=== PATIENT | male | born 1950 | race Caucasian/White ===

== ENCOUNTER → 2018-07-10 15:47 | Outpatient (CLI) | payer MEDICARE, OTHER, SELFPAY ==
--- NOTE | 2018-07-10 16:01 | XR_ITS ---
XR humerus RT CLINICAL INDICATION: Pain following injury ITS.REASON: RT SHOULDER PAIN,FALL FROM 10 FOOT HEIGHT ORDERING PHYSICIAN: ORVILLE Juarez PATIENT AGE: 68 years Comparison: None FINDINGS: No fracture or dislocation IMPRESSION: Negative right humerus
--- NOTE | 2018-07-10 16:01 | XR_ITS ---
XR wrist RT min 3V HISTORY ITS.REASON: RT WRIST PAIN,FALL FROM 10 FOOT HEIGHT ORDERING PHYSICIAN: ORVILLE Juarez PATIENT AGE: 68 years Comparison: None FINDINGS: No fracture or dislocation. No lytic or blastic change. There is normal mineralization.. The joint spaces are well-preserved. No significant degenerative/arthritic changes. Lucency is present at the tip of the ulnar styloid is nonspecific.. Suspected old fracture of the fifth metacarpal. There are small calcific densities at the first metacarpocarpal junction laterally likely chronic IMPRESSION: 1. No acute fracture. 2. Suspect old fifth metacarpal fracture. Nonspecific lucency at the tip of the ulnar styloid which may be due to erosion which could be seen with rheumatoid arthritis.
--- NOTE | 2018-07-10 16:01 | XR_ITS ---
XR chest 2V HISTORY: Posttraumatic pain following injury ITS.REASON: CHEST WALL PAIN,FALL FROM 10 FOOT HEIGHT ORDERING PHYSICIAN: ORVILLE Juarez PATIENT AGE: 68 years COMPARISON: None FINDINGS: The cardiomediastinal silhouette and pulmonary vascularity are within normal limits. The lungs are clear without infiltrates, suspicious nodules, or pleural effusions. No acute bony abnormalities. Right side of the lower chest was clipped off on this study however, that area was visualized in the right humerus films and was unremarkable. Mild degenerative changes in the thoracic spine IMPRESSION: No acute finding
--- NOTE | 2018-07-10 16:01 | XR_ITS ---
XR shoulder RT min 2V HISTORY: ITS.REASON: RT SHOULDER PAIN,FALL FROM 10 FOOT HEIGHT ORDERING PHYSICIAN: ORVILLE Juarez PATIENT AGE: 68 years Comparison: None FINDINGS: No fracture or dislocation. No lytic or blastic change. There is normal mineralization. Mild osteoarthritic changes are present at the acromioclavicular joint. IMPRESSION: 1. No acute fracture. 2. Mild acromioclavicular arthropathy
--- NOTE | 2018-07-10 16:01 | XR_ITS ---
EXAM: XR lumbar spine min 4V HISTORY: ITS.REASON: LOW BACK PAIN,FALL FROM 10 FOOT HEIGHT ORDERING PHYSICIAN: ORVILLE Juarez PATIENT AGE: 68 years COMPARISON: None FINDINGS: Mild lumbar curvature convex right. There is straightening of the lumbar lordosis which may be seen with patient positioning or muscle spasm. There is mild multilevel lumbar spondylosis with small anterior osteophytes from L2 to S1 along with mild degenerative disc disease at L5-S1. A fracture or dislocation. No lytic or blastic change. Incidental note made of some small left renal calculi along the lower pole of the left kidney measuring up to 4 mm IMPRESSION: Lumbar spondylosis, no acute finding Left nephrolithiasis
--- NOTE | 2018-07-10 16:01 | XR_ITS ---
XR hand LT min 3V HISTORY: ITS.REASON: LEFT HAND PAIN,FALL FROM 10 FOOT HEIGHT ORDERING PHYSICIAN: ORVILLE Juarez PATIENT AGE: 68 years COMPARISON: None FINDINGS: The patient was unable to remove his ring from the fourth finger with resultant artifact overlying the mid aspect of the proximal phalanx which could obscure an underlying lesion or fracture. No acute fracture or dislocation is evident. Minor osteoarthritic changes are present at the DIP joints of the second through fifth finger and the interphalangeal joint of the first finger. IMPRESSION: As above, no acute finding
== END ==
PROVIDERS: PCP Physician Assistant; Visit Provider Physician Assistant
DX: M25.531 Pain in right wrist (principal); M79.642 Pain in left hand; M25.511 Pain in right shoulder; M54.5 Low back pain; R07.89 Other chest pain
CPT/HCPCS: 71046; 72110; 73030; 73060; 73110; 73130

== ENCOUNTER → 2018-09-17 16:54 | Outpatient (CLI) | payer MEDICARE, OTHER, SELFPAY ==
[2018-09-17 19:27] LABS: Blood Urea Nitrogen 24 mg/dL (7-18); Creatinine,Serum 0.97 mg/dL (0.70-1.30); Estimated Glomerular Filt Rate 77 ml/min (>60); GFR (African American) 94 ML/MIN (>60)
== END ==
PROVIDERS: Visit Provider Family Medicine
DX: F07.81 Postconcussional syndrome (principal)
CPT/HCPCS: 36415; 82565; 84520

== ENCOUNTER → 2018-09-18 09:05 | Outpatient (CLI) | payer MEDICARE, OTHER, SELFPAY ==
--- NOTE | 2018-09-18 09:07 | MR_ITS ---
MR head/brain wo/w con HISTORY: Headache, pain, post concussion syndrome with dizziness ITS.REASON: POST CONCUSSION SYNDROME ORDERING PHYSICIAN: Marcella Palma MD PATIENT AGE: 68 years Comparison: None TECHNIQUE: Standard multiplanar multiecho sequences are performed without and with gadolinium enhancement. FINDINGS: No midline shift, mass effect, intracranial hemorrhage, or hydrocephalus is evident. No evidence of acute infarction or restricted diffusion. There are a few scattered periventricular and subcortical T2 white matter hyperintensities which are nonspecific and may be due to mild ischemic gliotic change from microvascular disease. The cerebellopontine angles, cerebellum, and brainstem are unremarkable. No enhancing lesions are apparent. There is a partial empty sella as a normal variant. The optic chiasm, corpus callosum, craniocervical junction, and upper cervical cord are unremarkable. No mastoid effusion or sinus air-fluid level. No acute calvarial abnormality IMPRESSION: 1. No acute intracranial findings. 2. Minimal periventricular ischemic gliotic change
== END ==
PROVIDERS: PCP Family Medicine; Visit Provider Family Medicine
DX: F07.81 Postconcussional syndrome (principal)
CPT/HCPCS: 70553; A9576

== ENCOUNTER → 2020-06-08 12:11 | Outpatient (CLI) | payer MEDICARE, OTHER, SELFPAY ==
[2020-06-08 15:09] LABS: Coronavirus 19 IgG Antibody Negative (Negative); Coronavirus 19 IgM Antibody Negative (Negative)
== END ==
PROVIDERS: Visit Provider Internal Medicine Gastroenterology
DX: Z01.818 Encounter for other preprocedural examination (principal); Z12.11 Encounter for screening for malignant neoplasm of colon
CPT/HCPCS: 36415; 86328

== ENCOUNTER 2020-06-10 08:02 | Day surgery (SDC) | payer MEDICARE, OTHER, SELFPAY ==
[2020-06-06 09:51] VITALS: BMI 25.8
[2020-06-10] VITALS (7 sets, daily range): BP systolic 85–160; BP diastolic 53–76; PULSE 46–72; RESP 16–18; TEMP 36.4; O2SAT 95–100
--- NOTE | 2020-06-10 09:41 | HMH.PROC ---
[facility] Procedure Note Procedure Note:: Colonoscopy Procedure Report: Colonoscopy with cold snare polypectomy Endoscopist: Eze Gonzalez II, MD Referring physician: Raul Mejia MD Date of Procedure: June 10, 2020 Equipment: Olympus 180 variable stiffness pediatric colonoscope Sedation: MAC sedation Indication: Mr. Loyd is a 70-year-old gentleman who is here for follow-up screening/surveillance colonoscopy. The patient did have a colonoscopy 10 years ago (in [place]) and had 2 polyps removed. He reports no abdominal pain, weight loss, change in his bowel habits or rectal bleeding. He reports no family history of colon cancer. Procedure: Prior to the procedure, a history and physical exam was performed, and patient's medications and allergies were reviewed. The risks, benefits and alternatives of the sedation and procedure were discussed with the patient. All questions were answered and informed consent was obtained. The patient was brought to the procedure room. Patient identification and proposed procedure were verified by the physician and the nurse. The patient was placed in a left lateral decubitus position and the scope was passed under direct vision. Throughout the procedure, the patient's blood pressure, pulse, and oxygen saturations were monitored continuously. The colonoscopy was accomplished without difficulty. The patient tolerated the procedure well. Findings: On digital rectal examination there was normal rectal tone. There were larger external hemorrhoidal tags. The prostate was 2+, mildly firm on the margins but symmetric without nodules. The colonoscope was introduced through the anal canal to the rectum and advanced to the cecum. The ileocecal valve and appendiceal orifice were identified. The scope was advanced a short distance into the ileum which appeared grossly normal. The scope was then withdrawn into the colon. There was a single 4 mm ascending colon polyp that was removed via cold snare polypectomy (but not retrieved). NBI showed this to be diminutive tubular adenoma. The remaining cecum, ascending, transverse, descending, sigmoid and rectum were grossly normal. There were no mucosal abnormalities identified. Upon retroflexion within the rectum there were grade 2 internal hemorrhoids.The preparation was excellent throughout with [place] Preparation Score of 9. The cecal time was 10 minutes. Impression: 1. Diminutive ascending polyp (tubular adenoma) 2. Grade 2 internal hemorrhoids with external hemorrhoidal tags Plan: I will recommend repeat surveillance colonoscopy in 7 years based on diminutive size/small tubular adenoma. I would encourage bulk fiber supplementation on a maintenance basis.
== END 2020-06-10 10:45 | disposition home or self-care (01) ==
LOC: OUTP 08:04
PROVIDERS: PCP Family Medicine; Visit Provider Internal Medicine Gastroenterology
PROC: 0DJD8ZZ Inspection of Lower Intestinal Tract, Via Natural or Artificial Opening Endoscopic (ICD-10-PCS; CPT 45378; principal; 2020-06-10 09:00)
DX: Z12.11 Encounter for screening for malignant neoplasm of colon (principal); Z86.010 Personal history of colon polyps; K63.5 Polyp of colon; K64.0 First degree hemorrhoids; I10 Essential (primary) hypertension; E11.9 Type 2 diabetes mellitus without complications; Z80.9 Family history of malignant neoplasm, unspecified; Z88.1 Allergy status to other antibiotic agents; Z79.899 Other long term (current) drug therapy
CPT/HCPCS: 45385

== ENCOUNTER → 2020-08-18 12:46 | Outpatient (CLI) | payer MEDICARE, OTHER, SELFPAY ==
--- NOTE | 2020-08-18 12:54 | XR_ITS ---
PROCEDURE: XR CHEST PORTABLE CLINICAL HISTORY: COVID TESTING Cough, fatigue COMPARISON: CR CXR2V XR chest 2V from 07/10/2018 FINDINGS: The cardiomediastinal silhouette and pulmonary vascularity are within normal limits. Calcified nodes are present in the right perihilar region. Calcified granuloma is present in the right lower lung zone. The lungs are otherwise clear. No acute bony abnormalities. IMPRESSION: No acute findings. Dictated by: Frankie Sanchez MD 08/18/2020 16:25 Frankie Sanchez MD in [place] 08/18/2020 16:25
[2020-08-18 14:30] LABS: Basophils # 0.1 K/mm3 (0-0.2); Basophils % 0.7 % (0.1-2.0); Eosinophils # 0.1 K/mm3 (0.0-0.4); Eosinophils % 1.7 % (0.1-12.0); Hematocrit 53.1 % (42.0-52.0); Hemoglobin 17.4 g/dL (14.1-18.0); Lymphocytes # 1.5 K/mm3 (0.7-4.5); Lymphocytes % 22.1 % (10-50); Mean Corpuscular HGB Conc 32.9 g/dL (31.8-35.4); Mean Corpuscular Hemoglobin 29.7 pg (27.0-31.2); Mean Corpuscular Volume 90.3 fl (80-94); Mean Platelet Volume 8.5 fl (7.4-10.4); Monocytes # 0.3 K/mm3 (0.1-1.0); Monocytes % 5.2 % (1.7-9.3); Neutrophils # 4.7 K/mm3 (1.8-7.8); Neutrophils % 70.4 % (37.0-80.0); Platelet Count 232 K/mm3 (142-424); Red Blood Count 5.88 M/mm3 (4.60-6.20); Red Cell Distribution Width 13.7 % (11.5-17.5); White Blood Count 6.6 K/mm3 (4.8-10.8)
[2020-08-19 07:49] LABS: Covid-19 Nasal PCR Sendout P&C NEGATIVE
== END ==
PROVIDERS: PCP Physician Assistant; Visit Provider Physician Assistant
DX: Z11.52 Encounter for screening for COVID-19 (principal); R05 Cough; R53.83 Other fatigue
CPT/HCPCS: 36415; 71045; 85025; U0004

== ENCOUNTER → 2021-05-30 12:09 | Outpatient (POV) | payer MEDICARE, OTHER, SELFPAY | PROVIDERS: Visit Provider Dermatology | DX: Z00.00 Encounter for general adult medical examination without abnormal findings (principal) ==

== ENCOUNTER → 2021-06-23 13:04 | Outpatient (CLI) | payer MEDICARE, OTHER, SELFPAY | LOC: RT 13:08 → SL 13:32 | PROVIDERS: PCP Family Medicine; Visit Provider Family Medicine | DX: G47.33 Obstructive sleep apnea (adult) (pediatric) (principal); R06.83 Snoring | CPT/HCPCS: G0399 ==

== ENCOUNTER → 2021-08-03 10:53 | Outpatient (POV) | payer MEDICARE, OTHER, SELFPAY ==
[2021-08-03 11:08] VITALS: BP 167/90; PULSE 87; RESP 18; O2SAT 97; BMI 26.6
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
== END ==
PROVIDERS: Visit Provider Clinical Nurse Specialist Family Health
DX: M79.18 Myalgia, other site (principal); M54.2 Cervicalgia
CPT/HCPCS: 99202; G0463

== ENCOUNTER 2021-08-07 14:57 | Day surgery (SDC) | payer MEDICARE, OTHER, SELFPAY ==
[2021-08-07 14:59] VITALS: BP 131/71; PULSE 65; RESP 20; TEMP 36.6; O2SAT 97; BMI 26.6
[2021-08-07 15:06] VITALS: BP 156/84; PULSE 66; RESP 18; O2SAT 99
[2021-08-07 15:07] VITALS: PULSE 68; RESP 18; O2SAT 98
[2021-08-07 15:12] VITALS: BP 156/77; PULSE 63; RESP 20; O2SAT 97
--- NOTE | 2021-08-07 15:12 | P.PCN_ITS ---
- Procedure Date: 08/07/21 Time: 15:13 Anesthesiologist:: Kristen Geronimo APRN Complications:: None Pre-procedure Diagnosis:: Myofascial pain of the neck Post-procedure Diagnosis:: Same Indications for Procedure:: Patient is a pleasant 71-year-old male who comes in here today for a trigger point injection on his right cervical paraspinous. Patient is currently being treated for myofascial pain of the right neck. Patient says that this has been going on for a while and has gotten relief from a massage but the relief only lasted for a couple of days. He says the pain is worse when he turns his head and he hears popping sounds. Patient has also tried TENS unit which helped him before. He rates his pain as 5/10. Drug screens have been appropriate. Physical exam General: Alert and oriented x3, no acute distress, pleasant and cooperative Lungs: Respirations even and unlabored, symmetrical chest expansion Eyes: PERRL Musculoskeletal: Flexion and extension of [cervical] [spine] somewhat guarded secondary to pain, [antalgic gait noted] Neurological: Speech clear, no gross sensory deficit Procedure Details:: Informed consent was obtained and the risk and benefits of the procedure was explained to the patient. Patient was taken to the procedure room. [Neck and upper trapezius area] were prepped using ChloraPrep. Trigger points were palpated and marked. Each of these trigger points were injected with bupivacaine 0.25% 3 mL and Depo-Medrol 10 mg. A total of[80] milligrams Depo- Medrol was used for [right cervical paraspinous muscles]. Bandages were placed over the injection sites. Patient tolerated procedure well with no complications. Plan and Disposition:: We will follow up with the patient in 3 weeks. Patient has been instructed to contact the clinic with any concerns before the next appointment. Dr. Prieto has reviewed this note and agrees with this plan of care. This note was dictated u sing voice recognition software and make contain errors or omissions.
== END 2021-08-07 15:13 | disposition home or self-care (01) ==
LOC: SC.PAINP 14:58
PROVIDERS: PCP Family Medicine; Visit Provider Clinical Nurse Specialist Family Health
DX: M79.12 Myalgia of auxiliary muscles, head and neck (principal); I10 Essential (primary) hypertension; Z88.8 Allergy status to other drugs, medicaments and biological substances
CPT/HCPCS: 20552; J1040

== ENCOUNTER 2021-08-20 10:57 | Emergency (ER) | payer MEDICARE, OTHER, SELFPAY ==
[2021-08-20 10:59] VITALS: BP 138/84; PULSE 78; RESP 16; TEMP 36.9; O2SAT 98; BMI 27.3
[2021-08-20 14:33] VITALS: BP 0/0; PULSE 0; RESP 0; TEMP -17.7; TEMP 0
== END 2021-08-20 14:33 | disposition left against medical advice (07) ==
LOC: UTC 11:09
PROVIDERS: Emergency Provider Nurse Practitioner Family; PCP Physician Assistant
DX: Z53.21 Procedure and treatment not carried out due to patient leaving prior to being seen by health care provider (principal)

== ENCOUNTER → 2021-09-05 12:42 | Outpatient (CLI) | payer MEDICARE, OTHER, SELFPAY ==
[2021-09-06 08:17] LABS: PSA, Free 0.89 ng/mL; Prostate Specific Ag 11.8 ng/mL (0.0-4.0)
== END ==
PROVIDERS: PCP Family Medicine; Visit Provider Urology
DX: R97.20 Elevated prostate specific antigen [PSA] (principal)
CPT/HCPCS: 36415; 84153; 84154

== ENCOUNTER → 2021-09-12 15:22 | Outpatient (CLI) | payer MEDICARE, OTHER, SELFPAY ==
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
== END ==
PROVIDERS: PCP Family Medicine; Visit Provider Family Medicine
DX: M54.2 Cervicalgia (principal)
CPT/HCPCS: 72050

== ENCOUNTER → 2021-09-29 13:48 | Outpatient (CLI) | payer MEDICARE, OTHER, SELFPAY | PROVIDERS: Visit Provider Urology | DX: R97.20 Elevated prostate specific antigen [PSA] (principal); Z01.812 Encounter for preprocedural laboratory examination; Z11.52 Encounter for screening for COVID-19 | CPT/HCPCS: C9803; U0003; U0005 ==

== ENCOUNTER 2021-10-02 08:55 | Day surgery (SDC) | payer MEDICARE, OTHER, SELFPAY ==
[2021-09-28 13:12] VITALS: BMI 26.6
[2021-10-02 09:07] VITALS: BP 147/70; PULSE 59; RESP 18; TEMP 36.8; O2SAT 98
--- NOTE | 2021-10-02 10:34 | P.PN_ITS ---
[facility] Anesthesia Checklist - Structural Data Admitted From: Home Planned Operative Procedure/s: prostate,bx Consent for Planned Operative Procedure(s) Verified: Yes - Additional verifications Anesthesia Reactions: No Hx Blood Transfusions: No Blood Transfusion Reaction: No - Airway Assessment C-Spine Mobility Assessed: Yes TMJ Mobility Assessed: Yes Dentition: Good Dentition - Neurological Assessment Level of Consciousness: Awake, Alert, Appropriate - Anesthesia Plan Anesthesia Risk discussed: Yes Anesthesia Plan: Verified ASA Class: II Anesthesia Type: MAC [facility] History I have reviewed the patient's past medical history: Yes Medical History: Reports:: Hypertension Denies:: Cancer, Diabetes Mellitus Type 1, Diabetes Mellitus Type 2, Internal Pacemaker, MRSA, Seizures *Have you ever received a pneumonia vaccine?: Yes *Have you received a flu vaccine this season?: Yes Other Medical History: Reports: Arthritis. Denies: Blood Transfusion Reaction Anesthesia experience/problems:: none Other Surgeries: Yes: No Previous Surgery, Colonoscopy. No: Pacemaker Amputation: No Fractures: No - *Social History Last grade of school completed: 11th or 12th Smoking Status: Current every day smoker Tobacco Type: smokeless tobacco # Packs/Day (cigarettes): 1 Alcohol Intake: never Alcohol Intake Frequency:: a few times a month Substance Use Type: denies use *Occupational Status:: retired Housing: house Household Members: spouse *Travel in the last 8 weeks: None Family Hx:: Cancer, Diabetes
[2021-10-02 12:15] VITALS: BP 89/53; PULSE 61; RESP 16; TEMP 36.4; O2SAT 92
[2021-10-02 12:30] VITALS: BP 105/63; PULSE 47; RESP 16; TEMP 36.4; O2SAT 97
[2021-10-02 12:45] VITALS: BP 98/61; PULSE 51; RESP 18; TEMP 36.4; O2SAT 98
--- NOTE | 2021-10-02 13:05 | HMH.OPNOTE ---
Date of procedure: 10/02/21 Pre-op Diagnosis:: Elevated PSA, 11.8 Post-op Diagnosis:: Same Procedure performed:: Transrectal ultrasound with prostate biopsy x12 Surgeon:: Lavon Candelaria MD TILE [employer] MARBLE INSTALLER:: Other (hammad s) Anesthesia: MAC Estimated blood loss (mL): 0 Clinical Note:: 71-year-old white male with rising PSA and suspicious prostate examination. His recent PSA was 11.8 and he presents for prostate biopsy. He did perform preoperative antibiotics and enema. Operative findings:: Prostate was measured at 38 cm?. There were some hypoechoic lesions in the central prostate zone bilaterally. Some scattered calcifications were also noted. Operative note:: Patient taken to the operating room after informed consent was obtained. On the stretcher he was placed in the left lateral decubitus position and monitored anesthesia care administered. Once adequate analgesia was performed the transrectal ultrasound probe was placed into the rectum and the prostate was easily visualized. Prostate was measured at 38.2 cm?. There was hypoechoic areas noted in the central zone of the prostate bilaterally. No hyperechoic lesions were noted. There were some scattered calcifications in the central zone as well. Local anesthetic was then placed into each region of the neurovascular bundles. 12 biopsies then taken in a systematic fashion including through the hypoechoic areas centrally. No bleeding was noted. The probe was removed. The patient tolerated the procedure well no complications. Condition: stable Disposition: same day Specimens:: Prostate biopsy x12 Complications:: None
[2021-10-02 13:17] VITALS: BP 121/74; PULSE 53; RESP 18; TEMP 36.4; O2SAT 94
== END 2021-10-02 13:17 | disposition home or self-care (01) ==
LOC: OR 08:57
PROVIDERS: PCP Family Medicine; Visit Provider Urology
DX: N42.0 Calculus of prostate (principal); N42.89 Other specified disorders of prostate; R97.20 Elevated prostate specific antigen [PSA]; I10 Essential (primary) hypertension; M19.90 Unspecified osteoarthritis, unspecified site; Z88.1 Allergy status to other antibiotic agents; Z79.899 Other long term (current) drug therapy
CPT/HCPCS: 55700; 88305; J2405

== ENCOUNTER → 2021-10-23 09:30 | Outpatient (CLI) | payer MEDICARE, OTHER, SELFPAY ==
--- NOTE | 2021-10-23 09:31 | CT_ITS ---
FINAL REPORT TECHNIQUE: Axial images through the abdomen and pelvis were performed without contrast. This study was performed with techniques to keep radiation doses as low as reasonably achievable, (ALARA). Individualized dose reduction techniques using automated exposure control or adjustment of mA and/or kV according to the patient's size were employed. CLINICAL HISTORY: prostate cancer FINDINGS: Abdomen: There is scarring in the lung bases. There is a low-attenuation focus in the lateral left lobe of the liver measuring 1.4 cm. The gallbladder is present. The spleen, pancreas, and adrenals are unremarkable. There is a nonobstructing stone in the left renal collecting system. Pelvis: The urinary bladder is incompletely distended. The appendix is at the upper limits of normal in size but otherwise unremarkable. There is no pelvic mass or inflammation. The prostate is not enlarged. There are no sclerotic lesions in the osseous structures. IMPRESSION: 6 mm nonobstructing left renal stone. No significant mass or adenopathy. Benign-appearing cyst in the lateral left lobe of the liver. Reviewed, Interpreted and Dictated by Kodak Sanchez MD Transcribed by Eddie Isaac Authenticated by Kodak Sanchez MD on 10/23/2021 10:41:58 AM [facility]
== END ==
PROVIDERS: PCP Family Medicine; Visit Provider Urology
DX: C61 Malignant neoplasm of prostate (principal)
CPT/HCPCS: 74176

== ENCOUNTER → 2021-10-24 13:56 | Outpatient (CLI) | payer MEDICARE, OTHER, SELFPAY ==
[2021-10-24 14:47] LABS: Adenovirus,PCR Not Detected (NotDetected); Bordetella Pertussis Not Detected (NotDetected); Chlamydophila Pneumoniae, PCR Not Detected (NotDetected); Coronavirus 19, PCR Not Detected (NotDetected); Coronavirus 229E Not Detected (NotDetected); Coronavirus NL63 Not Detected (NotDetected); Coronavirus OC43 Not Detected (NotDetected); Coronovirus HKU1,PCR Not Detected (NotDetected); Human Metapneumovirus Not Detected (NotDetected); Influenza A, PCR Not Detected (NotDetected); Influenza AH1, 2009 Not Detected (NotDetected); Influenza AH1, PCR Not Detected (NotDetected); Influenza AH3,PCR Not Detected (NotDetected); Influenza B, PCR Not Detected (NotDetected); Mycoplasma Pneumoniae, PCR Not Detected (NotDetected); Parainfluenza 1, PCR Not Detected (NotDetected); Parainfluenza 2, PCR Not Detected (NotDetected); Parainfluenza 3, PCR Not Detected (NotDetected); Parainfluenza 4, PCR Not Detected (NotDetected); Respiratory Syncytial Virus Not Detected (NotDetected); Rhinovirus/Enterovirus Not Detected (NotDetected)
[2021-10-24 14:52] LABS: Basophils # 0.1 K/mm3 (0-0.2); Basophils % 0.8 % (0.1-2.0); Eosinophils # 0.2 K/mm3 (0.0-0.4); Eosinophils % 1.9 % (0.1-12.0); Hemoglobin 15.2 g/dL (14.1-18.0); Lymphocytes # 1.4 K/mm3 (0.7-4.5); Lymphocytes % 16.5 % (10-50); Mean Corpuscular HGB Conc 32.3 g/dL (31.8-35.4); Mean Corpuscular Hemoglobin 29.2 pg (27.0-31.2); Mean Corpuscular Volume 90.3 fl (80-94); Mean Platelet Volume 9.2 fl (7.4-10.4); Monocytes # 0.4 K/mm3 (0.1-1.0); Monocytes % 5.3 % (1.7-9.3); Neutrophils # 6.2 K/mm3 (1.8-7.8); Neutrophils % 75.5 % (37.0-80.0); Platelet Count 236 K/mm3 (142-424); Red Cell Distribution Width 14.3 % (11.5-17.5); White Blood Count 8.2 K/mm3 (4.8-10.8)
== END ==
PROVIDERS: PCP Family Medicine; Visit Provider Family Medicine
DX: Z20.822 Contact with and (suspected) exposure to COVID-19 (principal); R06.02 Shortness of breath; R05.9 Cough, unspecified
CPT/HCPCS: 36415; 85025; 87581; 87632; 87798; C9803; U0003; U0005

== ENCOUNTER → 2021-10-30 09:11 | Outpatient (CLI) | payer MEDICARE, OTHER, SELFPAY ==
--- NOTE | 2021-10-30 09:11 | NM_ITS ---
FINAL REPORT CLINICAL HISTORY: prostate cancer 9:20am 26.2 mci tc mdp COMPARISON: Cervical spine radiograph dated 09/12/2021 FINDINGS: WHOLE BODY BONE SCAN PROCEDURE: The patient was injected with 26.2 mCi of technetium 99m MDP. Three-hour delayed images were obtained. FINDINGS: There is increased tracer activity in the shoulders, wrists, and knees consistent with degenerative changes. There is a focus of increased tracer activity in the right lower cervical spine which is nonspecific and favored to be degenerative. There is mild increased tracer in the thoracic and lumbar spine consistent with degenerative change IMPRESSION: Increased tracer activity favored to be related to degenerative change. No evidence of bony metastatic disease. Reviewed, Interpreted and Dictated by Vinh Palacios III, MD Transcribed by Ashley Woo Authenticated by Vinh Palacios III, MD on 10/30/2021 01:41:48 PM [facility]
--- NOTE | 2021-10-30 09:33 | HMH.ITSHM ---
Current Home Medications as stated by this patient Daryl Loyd or patient portal representative. []LISINOPRIL
== END ==
PROVIDERS: PCP Family Medicine; Visit Provider Urology
DX: C61 Malignant neoplasm of prostate (principal)
CPT/HCPCS: 78306; A9503

== ENCOUNTER → 2021-12-22 11:30 | Outpatient (CLI) | payer MEDICARE, OTHER, SELFPAY | PROVIDERS: Visit Provider Urology | DX: C61 Malignant neoplasm of prostate (principal); Z01.812 Encounter for preprocedural laboratory examination; Z11.52 Encounter for screening for COVID-19 | CPT/HCPCS: C9803; U0003; U0005 ==

== ENCOUNTER 2021-12-25 08:25 | Day surgery (SDC) | payer MEDICARE, OTHER, SELFPAY ==
[2021-12-21 10:43] VITALS: BMI 25.1
[2021-12-25 08:44] VITALS: BP 115/61; PULSE 50; RESP 18; TEMP 36.4; O2SAT 99
--- NOTE | 2021-12-25 09:11 | HMH.ANESCL ---
[facility] Anesthesia Checklist - Structural Data Admitted From: Home Planned Operative Procedure/s: transurethral ultrasound Consent for Planned Operative Procedure(s) Verified: Yes - Additional verifications Anesthesia Reactions: No Hx Blood Transfusions: No Blood Transfusion Reaction: No - Airway Assessment C-Spine Mobility Assessed: Yes TMJ Mobility Assessed: Yes Dentition: Good Dentition - Neurological Assessment Level of Consciousness: Awake, Alert, Appropriate - Anesthesia Plan Anesthesia Risk discussed: Yes Anesthesia Plan: Verified ASA Class: II Anesthesia Type: MAC [facility] History I have reviewed the patient's past medical history: Yes Medical History: Reports:: Cancer (PROSTATE), Hypertension Denies:: Diabetes Mellitus Type 1, Diabetes Mellitus Type 2, Internal Pacemaker, MRSA, Seizures *Have you ever received a pneumonia vaccine?: Yes *Have you received a flu vaccine this season?: Yes Other Medical History: Reports: Arthritis. Denies: Blood Transfusion Reaction Anesthesia experience/problems:: none Other Surgeries: Yes: No Previous Surgery, Colonoscopy. No: Pacemaker Amputation: No Fractures: No - *Social History Last grade of school completed: High school graduate Smoking Status: Current every day smoker Tobacco Type: smokeless tobacco # Packs/Day (cigarettes): 1 Alcohol Intake: never Alcohol Intake Frequency:: a few times a month Substance Use Type: denies use *Occupational Status:: employed Housing: house Household Members: spouse *Travel in the last 8 weeks: None Family Hx:: Cancer, Diabetes
[2021-12-25 10:56] VITALS: BP 85/40; PULSE 54; RESP 16; TEMP 36.2; O2SAT 92
[2021-12-25 11:11] VITALS: BP 102/52; PULSE 47; RESP 18; TEMP 36.2; O2SAT 94
[2021-12-25 11:26] VITALS: BP 102/54; PULSE 48; RESP 16; TEMP 36.2; O2SAT 94
[2021-12-25 11:45] VITALS: BP 142/75; PULSE 49; RESP 16; TEMP 36.2; O2SAT 95
--- NOTE | 2021-12-25 12:38 | HMH.OPNOTE ---
Date of procedure: 12/25/21 Pre-op Diagnosis:: Prostate cancer Post-op Diagnosis:: Prostate cancer Procedure performed:: Placement of gold fiducials with transrectal ultrasound guidance Surgeon:: Lavon Candelaria MD SALES ENABLEMENT LEAD:: Other (hammad s) Anesthesia: MAC Estimated blood loss (mL): 0 Clinical Note:: Patient with recently diagnosed prostate cancer has opted for CyberKnife therapy and presents today for placement of gold fiducials. Operative findings:: Prostate was easily visualized. Neutral were placed into the appropriate position without problems. Operative note:: Patient taken to the operating room after informed consent was obtained. Monitored anesthesia care was administered and patient placed into the left lateral decubitus position. He had been on preoperative oral antibiotic. With the knees flexed the transrectal ultrasound probe was placed into the rectum and the prostate was easily visualized. Local anesthetic was placed into each neurovascular bundle and 4 gold markers were then placed. 1 at the right apex, 1 at the right base, 1 at the left apex and 1 at the left base. Ultrasound coronal plane indicated good placement of all seeds. Patient tolerated procedure well there were no complications Condition: stable Disposition: same day Specimens:: None Complications:: None
== END 2021-12-25 11:45 | disposition home or self-care (01) ==
LOC: OR 08:27
PROVIDERS: PCP Family Medicine; Visit Provider Urology
DX: C61 Malignant neoplasm of prostate (principal); I10 Essential (primary) hypertension; M19.90 Unspecified osteoarthritis, unspecified site; Z79.899 Other long term (current) drug therapy; Z80.9 Family history of malignant neoplasm, unspecified; Z83.3 Family history of diabetes mellitus; Z88.1 Allergy status to other antibiotic agents
CPT/HCPCS: 55876; 76942; A4648

== ENCOUNTER → 2022-01-29 09:18 | Outpatient (POV) | payer MEDICARE, OTHER, SELFPAY ==
[2022-01-29 10:19] VITALS: BP 159/88; PULSE 56; RESP 18; TEMP 37; O2SAT 100; BMI 25.8
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
== END ==
PROVIDERS: Visit Provider Student in an Organized Health Care Education/Training Program
DX: M79.18 Myalgia, other site (principal)
CPT/HCPCS: 99212; G0463

== ENCOUNTER 2022-02-13 14:18 | Day surgery (SDC) | payer MEDICARE, OTHER, SELFPAY ==
[2022-02-13 14:23] VITALS: BP 124/85; PULSE 64; RESP 18; TEMP 36.6; O2SAT 96; BMI 26.6
[2022-02-13 14:44] VITALS: BP 110/78; PULSE 85; RESP 18; O2SAT 98
[2022-02-13 14:50] VITALS: BP 141/75; PULSE 56; RESP 20; O2SAT 95
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
--- NOTE | 2022-02-13 15:02 | HMH.PMPROC ---
- Procedure Date: 02/13/22 Time: 15:02 Anesthesiologist:: Tony Curran CRNA Complications:: None Pre-procedure Diagnosis:: Generative disc disease lumbar spine multilevels. Lumbar radiculopathy symptoms. Post-procedure Diagnosis:: Same Indications for Procedure:: This patient is a pleasant 55-year-old male that comes our clinic today for repeat lumbar epidural steroid injection at the L4-5 level. Patient is had these injections in the past with significant provement. He rates his low back pain 7/10. Procedure Details:: Procedure: Lumbar epidural steroid injection under fluoroscopy Informed consent was obtained and the risks and benefits of the procedure were explained to the patient. The patient was taken to the procedure room and noninvasive monitors placed, including noninvasive blood pressure cuff and pulse oximeter. The back was viewed using C-arm Fluoroscopy and prepped using Betadine as a cleansing solution and the L4-L5 interspace was palpated. Skin and subcutaneous tissues were anesthetized using lidocaine 1.5% and a 25-gauge needle. After this, an 18-gauge Touhy epidural needle was placed into the L4-L5 interspace and advanced using fluoroscopic guidance and loss of resistance to air until the epidural space was encountered. After confirmation of needle placement in the epidural space, with dye, a solution containing lidocaine 1.5%, 4 mL and Depo-Medrol 80 mg were incrementally injected into the lumbar epidural space. The patient tolerated the procedure well with no complications. The patient was observed in the Pain Clinic and then discharged home neurologically intact. Plan and Disposition:: Patient was discharged without incident.
== END 2022-02-13 14:51 | disposition home or self-care (01) ==
LOC: SC.PAINP 14:19
PROVIDERS: PCP Family Medicine; Visit Provider Nurse Anesthetist, Certified Registered
DX: M79.12 Myalgia of auxiliary muscles, head and neck (principal); I10 Essential (primary) hypertension; Z72.0 Tobacco use
CPT/HCPCS: 20552; J1040

== ENCOUNTER → 2022-03-08 13:32 | Outpatient (POV) | payer MEDICARE, OTHER, SELFPAY ==
[2022-03-08 13:36] VITALS: BP 128/64; PULSE 72; RESP 20; BMI 25.1
--- NOTE | 2022-03-08 14:58 | HMH.PAINSOAP ---
[facility] Pain Management SOAP Note Subjective:: Patient is a pleasant 71-year-old male who presents today for follow-up. We are currently treating the patient for myofascial pain of his right neck. We have done injective therapy in the past. His last trigger point injection on his right cervical paraspinous and trapezius area was on 01/29/2022. Patient states he has had significant relief from this injection. He does state that he still feels he is getting a little bit relief currently. He rates his pain today a 3 out of 10. He states his pain is all in his right neck to his right shoulder. He describes it as a aching sensation. He says he no longer has the popping in his neck like he had prior to the injection. Patient states he has no new trauma or injury to the site. He denies any change to the location or type of pain he experiences. He is currently seen physical therapy and doing at home exercises that provide significant relief. Patient has continued to use his TENS unit and a massage chair at home for some relief. He does take naproxen as needed for pain. Patient does have a history of prostate cancer. He states he did have a CyberKnife procedure for it in January. His Alvaro is [id number]. It is been reviewed and appropriate. Review of Systems: General: No recent weight changes, no fever, no sleep disturbances Respiratory: No cough, no shortness of air, no recurring pulmonary infections Cardiovascular/peripheral vascular: No chest pain, no palpitations, no edema, no shortness of breath Gastrointestinal: No new onset incontinence, normal bowel movements reported Genitourinary: No new onset incontinence Musculoskeletal: Right neck pain, right shoulder pain Psychiatric: [Normal mood/affect] Neurological: [Denies weakness in extremities], [denies balance issues] Objective:: Physical Exam: General: Alert and oriented x3, no acute distress, pleasant and cooperative Lungs: Respirations even and unlabored, symmetrical chest expansion Eyes: PERRL Musculoskeletal: Flexion and extension of cervical [spine] somewhat guarded secondary to pain, [antalgic gait noted] point tenderness right cervical paraspinous and right trapezius Neurological: Speech clear, no gross sensory deficit Assessment:: Myofascial pain of the right cervical paraspinous and right trapezius Plan:: Patient still has significant pain in his right neck that radiates into his shoulder. He did have any percent improvement with his last trigger point injection at this area. I have discussed with the patient regarding having repeat trigger point injections. Risk and benefits were discussed with the patient. He would like to proceed forward with these injections. I will also order the patient a compounding cream at today's visit. Patient is not on any blood thinners at this time. We will schedule the patient for a TPI of his right cervical paraspinous and trapezius muscle. Patient has been instructed to contact the clinic with any concerns before the next appointment. Dr. Prieto has reviewed this note and agrees with this plan of care. This note was dictated using voice recognition software and make contain errors or omissions. [facility] History I have reviewed the patient's past medical history: Yes Medical History: Reports:: Cancer (PROSTATE), Hypertension Denies:: Diabetes Mellitus Type 1, Diabetes Mellitus Type 2, Internal Pacemaker, MRSA, Seizures *Have you ever received a pneumonia vaccine?: Yes *Have you received a flu vaccine this season?: Yes Other Medical History: Reports: Arthritis. Denies: Blood Transfusion Reaction Other Surgeries: Yes: No Previous Surgery, Colonoscopy. No: Pacemaker Amputation: No Fractures: No - *Social History Smoking Status: Current every day smoker Tobacco Type: smokeless tobacco # Packs/Day (cigarettes): 1 Alcohol Intake: never Alcohol Intake Frequency:: a few times a month Substance Use Type: denies use *Occupational Status:: other Housing:
== END ==
PROVIDERS: PCP Family Medicine; Visit Provider Nurse Practitioner Family
DX: M79.18 Myalgia, other site (principal); M19.90 Unspecified osteoarthritis, unspecified site
CPT/HCPCS: 99212; G0463

== ENCOUNTER 2022-03-16 13:27 | Day surgery (SDC) | payer MEDICARE, OTHER, SELFPAY ==
[2022-03-16 13:33] VITALS: BP 124/75; PULSE 62; TEMP 36.8; O2SAT 97; BMI 25.7
--- NOTE | 2022-03-16 13:49 | HMH.PMPROC ---
- Procedure Date: 03/16/22 Time: 13:50 Anesthesiologist:: Tony Curran CRNA Complications:: None Pre-procedure Diagnosis:: Myofascial pain of right cervical paraspinous and right trapezius Post-procedure Diagnosis:: Same Indications for Procedure:: Patient is a pleasant 71-year-old male who presents today for right cervical paraspinous and right trapezius muscle steroid injections. We are currently treating the patient for myofascial pain of the right cervical paraspinous and right trapezius. Today the patient rates his pain a 4 out of 10. He denies any injury or new trauma. He denies any change to the location or type of pain he experiences. Procedure Details:: Informed consent was obtained and the risk and benefits the procedure were explained to the patient. Patient was taken to the procedure room. His right neck and upper trapezius area was prepped using ChloraPrep as a cleansing solution. Trigger points were palpated and marked at 4 locations. Each of these trigger points were injected with bupivacaine 0.25% bupivacaine 2.5 mL and Depo-Medrol 10 mg. A total of 80 mg Depo-Medrol was used for right cervical paraspinous and trapezius muscles. Bandages were placed over the injection sites. Patient tolerated the procedure well with no complications. Plan and Disposition:: Will follow up with the patient in 2 weeks in clinic. Patient has been instructed to contact the clinic with any concerns before the next appointment. Dr. Prieto has reviewed this note and agrees with this plan of care. The note was dictated using voice recognition software and may contain errors or omissions.
[2022-03-16 13:53] VITALS: BP 123/74; PULSE 61; RESP 18; O2SAT 96
== END 2022-03-16 13:54 | disposition home or self-care (01) ==
LOC: SC.PAINP 13:28
PROVIDERS: PCP Family Medicine; Visit Provider Nurse Anesthetist, Certified Registered
DX: M79.18 Myalgia, other site (principal); I10 Essential (primary) hypertension; Z72.0 Tobacco use
CPT/HCPCS: 20552; J1040

== ENCOUNTER 2022-03-22 11:00 | Outpatient (RCR) | payer MEDICARE, OTHER, SELFPAY ==
--- NOTE | 2022-03-14 10:56 | HMH.RHREAS ---
Rehab Reassessment Rehab OP Re-assessment Start: 03/14/22 10:40 Freq: Status: Active Protocol: Document 03/14/22 10:41 DIONNE (Rec: 03/14/22 10:55 DIONNE [id number]) Electronically Signed By Mart Cleveland, PT 03/14/22 10:41 Rehab Re-assessment Subjective Subjective Patient reports 50% improvement since start of care. Objective Objective Notes AROM: WNL flx, ext, Rr, Rl. SBr38; SBl 41 MMT: WNL Pain: 5/10 today; 5/10 at worst over past week Neuro: no reports of radicular symptoms or myotomal weakness . Special tests: negative Assessment Progress Assessment Progressing as Expected Assessment Notes Patient has been seen for 4 treatment visits to date. Objective improvements as noted above. Patient has missed the past weeks of Rx secondary to travel/COVID. Patient has had some significant relief with introduction of dry needling. Compliance noted with HEP. Patient would benefit from continuing with skilled PT services in order to address functional limitations with overhead reaching/lifting activities. Patient goals met STG's Goals Not Met LTG's Revised Goals NA Plan Plan Continue with current POC. Frequency of Therapy 2x/week Duration of therapy 4 weeks. Time and Billing Re-Eval Time 15 Re-Eval Billing Units 1 PHYSICIAN CERTIFICATION: I certify the specified therapy services for Daryl Loyd are required, authorized, and reviewed every 30 days.
== END 2022-03-22 12:00 | disposition home or self-care (01) ==
LOC: PT 11:00
PROVIDERS: PCP Family Medicine; Visit Provider Student in an Organized Health Care Education/Training Program
DX: M54.2 Cervicalgia (principal); M25.511 Pain in right shoulder
CPT/HCPCS: 20560; 97010; 97014; 97110; 97163; 97164; G0283

== ENCOUNTER → 2022-03-29 09:44 | Outpatient (POV) | payer MEDICARE, OTHER, SELFPAY ==
[2022-03-29 09:51] VITALS: BP 151/77; PULSE 51; RESP 20; BMI 25.8
--- NOTE | 2022-03-29 09:58 | A.OFFVIS_ITS ---
[facility] Pain Management SOAP Note Subjective:: Patient is a pleasant 72-year-old male that presents today for follow-up from trigger point injections along his right cervical paraspinous and right trapezius muscles on 03/16/2022. We are currently treating the patient for myofascial pain of his right neck. He states he has gotten significant relief with this injection. He states he has increased his activity substantially and states about 50% relief however it most likely would have been more if he had not been so active. Today he rates his pain a 4 out of 10. He still states his pain is there in his neck and shoulder area along the right side. Patient denies any new trauma or injury to the site. He denies any change to the loc ation or type of pain he experiences. He is still currently working with physical therapy with moderate improvement of his symptoms. He has also gotten his compounding cream and states it is helping with his pain symptoms. Patient does take [id number] naproxen as needed for his pain. He continues to use his TENS unit and massage chair at home to provide relief. Patient does have a history of prostate cancer with a CyberKnife procedure that occurred in January. His Alvaro is [id number]. It has been reviewed and appropriate. Review of Systems: General: No recent weight changes, no fever, no sleep disturbances Respiratory: No cough, no shortness of air, no recurring pulmonary infections Cardiovascular/peripheral vascular: No chest pain, no palpitations, no edema, no shortness of breath Gastrointestinal: No new onset incontinence, normal bowel movements reported Genitourinary: No new onset incontinence Musculoskeletal: Neck pain, right shoulder pain Psychiatric: [Normal mood/affect] Neurological: [Denies weakness in extremities], [denies balance issues] Objective:: Physical Exam: General: Alert and oriented x3, no acute distress, pleasant and cooperative Lungs: Respirations even and unlabored, symmetrical chest expansion Eyes: PERRL Musculoskeletal: Flexion and extension of cervical [spine] somewhat guarded secondary to pain, [antalgic gait noted] Neurological: Speech clear, no gross sensory deficit Assessment:: Myofascial pain of right cervical paraspinous and right trapezius Plan:: Patient has had significant improvement of his symptoms following his last trigger point injections along his right cervical paraspinous and right trapezius muscles. At this time the patient does not need additional injective therapy. We will schedule the patient for a 1 month follow-up. Patient will return to clinic in 1 month for follow-up and reevaluation of symptoms. Patient has been instructed to contact the clinic with any concerns before the next appointment. Dr. Prieto has reviewed this note and agrees with this plan of care. This note was dictated using voice recognition software and make contain errors or omissions. [facility] Social History (Updated 03/29/22 @ 09:53 by Judy Almonte RN) Smoking Status: Never smoker second hand exposure: No alcohol intake: never substance use type: denies use current occupational status: other Travel in the last 8 weeks: None household members: spouse housing: house current occupational exposures/hazards: No caffeine: No
== END ==
PROVIDERS: PCP Family Medicine; Visit Provider Nurse Practitioner Family
DX: M79.12 Myalgia of auxiliary muscles, head and neck (principal)
CPT/HCPCS: 99212; G0463

== ENCOUNTER → 2022-04-26 09:46 | Outpatient (POV) | payer MEDICARE, OTHER, SELFPAY ==
--- NOTE | 2022-04-26 10:03 | EXP.PAIN.SOA ---
[facility] Pain Management SOAP Note Subjective:: Patient is a pleasant 72-year-old male who presents today for follow-up. We are currently treating the patient for myofascial pain of his right cervical paraspinous and right trapezius muscles. Today the patient rates his pain a 3 out of 10. He states it is primarily in his neck on the right side that radiates into his right shoulder. He does describe this as a achy sensation that is worse with increased activity. Patient states that since having injections into his neck and shoulder on the right side he no longer has a popping sensation with range of motion exercises. In the past his injections have provided significant improvement of at least 50%. Patient states he has recently been in some poison ghislaine and was prescribed a steroid pack to help relieve the symptoms. 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 Patient continues to work with physical therapy and do at home exercises and stretching as well as TENS unit and massage chair. He also uses his compounding cream that he states provides significant improvement. He does take [id number] naproxen as needed. Patient does have a history of prostate cancer. His Alvaro is [id number]. It has been reviewed and appropriate. Review of Systems: General: No recent weight changes, no fever, no sleep disturbances Respiratory: No cough, no shortness of air, no recurring pulmonary infections Cardiovascular/peripheral vascular: No chest pain, no palpitations, no edema, no shortness of breath Gastrointestinal: No new onset incontinence, normal bowel movements reported Genitourinary: No new onset incontinence Musculoskeletal: Right neck pain right shoulder pain Psychiatric: [Normal mood/affect] Neurological: [Denies weakness in extremities], [denies balance issues] Objective:: Physical Exam: General: Alert and oriented x3, no acute distress, pleasant and cooperative Lungs: Respirations even and unlabored, symmetrical chest expansion Eyes: PERRL Musculoskeletal: Flexion and extension of cervical [spine] somewhat guarded secondary to pain, [antalgic gait noted]. Point tenderness along right cervical paraspinous and right trapezius. Neurological: Speech clear, no gross sensory deficit Assessment:: Myofascial pain of right cervical paraspinous and right trapezius Plan:: Patient has had significant improvement from his last trigger point injections however does still continue to have pain in this area He had limited range of motion of his cervical spine and point tenderness along his right cervical paraspinous and trapezius during today's exam. Patient is just finishing up a oral dose of steroids for poison ghislaine. I have discussed with him regarding repeating trigger point injections of his right neck and shoulder. Risk and benefits were discussed with the patient. He would like to proceed forward with these injections. I did tell him that we will plan to schedule these injections a month out due to his recent oral steroid medication. We will schedule the patient for TPI of his right cervical paraspinous and right trapezius. Patient has been instructed to contact the clinic with any concerns before the next appointment. Dr. Prieto has reviewed this note and agrees with this plan of care. This note was dictated using voice recognition software and make contain errors or omissions. [facility] Social History (Updated 03/29/22 @ 09:53 by Judy Almonte RN) Smoking Status: Never smoker second hand exposure: No alcohol intake: never substance use type: denies use current occupational status: other Travel in the last 8 weeks: None household members: spouse housing: house current occupational exposures/hazards: No caffeine: No
[2022-04-26 10:12] VITALS: BP 151/76; PULSE 50; RESP 18; TEMP 36.7; O2SAT 98; BMI 25.8
== END ==
PROVIDERS: PCP Family Medicine; Visit Provider Nurse Practitioner Family
DX: M79.12 Myalgia of auxiliary muscles, head and neck (principal); Z79.899 Other long term (current) drug therapy
CPT/HCPCS: 99212; G0463

== ENCOUNTER 2022-06-05 11:03 | Day surgery (SDC) | payer MEDICARE, OTHER, SELFPAY ==
[2022-06-05 11:14] VITALS: BP 133/67; PULSE 55; RESP 18; TEMP 36.3; O2SAT 90; BMI 25.8
--- NOTE | 2022-06-05 11:30 | EXP.PAIN.PRO ---
Procedure Date: 06/05/22 Time: 11:28 Anesthesiologist:: Tony Curran CRNA Complications:: None Pre-procedure Diagnosis:: Myofascial pain of right cervical paraspinous and right trapezius muscles Post-procedure Diagnosis:: Same Indications for Procedure:: Patient is a pleasant 72-year-old male who presents today for trigger point injections of his right cervical paraspinous and right trapezius muscles. We are currently treating the patient for myofascial pain. Today he rates his pain a 3 out of 10. Patient denies any new trauma or injury. He denies any change of location or type of pain he experiences. Patient does take naproxen to help with his symptoms as well as using a TENS unit. Patient has been using his compounding cream that is provided significant improvement of his symptoms. Patient has had these injections in the past that provided significant improvement of his symptoms. General: Alert and oriented x3, no acute distress, pleasant and cooperative Lungs: Respiration even unlabored, symmetrical chest expansion Eyes: PERRL Musculoskeletal: Flexion and extension of cervical spine somewhat guarded secondary to pain, antalgic gait noted Neurological: Speech clear, no gross sensory deficit Procedure Details:: Informed consent was obtained and the risk and benefits of the procedure were explained to the patient. The patient was taken to the procedure room where noninvasive monitoring was placed including a noninvasive blood pressure cuff and a pulse oximeter. Neck and upper trapezius on the right side were prepped with ChloraPrep as a cleansing solution. Trigger points were palpated and marked. Each of these trigger points were injected with bupivacaine 0.25% 3 mL and Depo-Medrol 20 mg. A total of 80 mg Depo-Medrol was used for each trigger point of the right cervical paraspinous and right upper trapezius muscles. Needle was withdrawn and sterile bandages placed over the injection sites. Patient tolerated the procedure well with no complications. Plan and Disposition:: Patient was monitored in clinic for short period of time following this procedure and discharged neurologically intact. We will see the patient back in 2 weeks for reevaluation of symptoms and follow-up. Patient has been counseled to contact the office with any questions or concerns before the next appointment date. Dr. Prieto has read this note and agrees with this plan of care. This note was dictated using voice recognition software and may contain errors or omissions.
[2022-06-05 11:31] VITALS: BP 139/66; PULSE 51; RESP 18; O2SAT 90
== END 2022-06-05 11:31 | disposition home or self-care (01) ==
PROVIDERS: PCP Family Medicine; Visit Provider Nurse Anesthetist, Certified Registered
DX: M79.18 Myalgia, other site (principal)
CPT/HCPCS: 20552; J1040

== ENCOUNTER → 2022-06-21 11:31 | Outpatient (POV) | payer MEDICARE, OTHER, SELFPAY ==
[2022-06-21 11:55] VITALS: BP 124/82; PULSE 59; RESP 18; O2SAT 97; BMI 25.8
--- NOTE | 2022-06-21 12:17 | A.OFFVIS_ITS ---
[facility] Pain Management SOAP Note Subjective:: Patient is a pleasant 72-year-old male who presents today for follow-up of trigger point injections of his right cervical paraspinous and right trapezius on 06/05/2022. We are currently treating the patient for myofascial pain of his right cervical paraspinous and right trapezius muscles. Today the patient states he has had at least 70% improvement following these injections and feels like they are continuing to help. He rates his pain a 8 out of 10 and states the pain is in his left low back. Patient denies any new trauma or injury. Patient states he has been hunting and setting entry stands which may have aggravated his symptoms. Patient has had multiple trigger point injections in the past that provided significant improvement of his symptoms. Patient continues to use a TENS unit as needed along with at home exercising and stretching. Patient is prescribed compounding cream that he states does provide additional improvement of his symptoms. Patient also states he uses [id number]-exsnsyn naproxen as needed. Patient does have a history of prostate cancer. His Alvaro is [id number]. It is been reviewed and appropriate. Review of Systems: General: No recent weight changes, no fever, no sleep disturbances Respiratory: No cough, no shortness of air, no recurring pulmonary infections Cardiovascular/peripheral vascular: No chest pain, no palpitations, no edema, no shortness of breath Gastrointestinal: No new onset incontinence, normal bowel movements reported Genitourinary: No new onset incontinence Musculoskeletal: Low back pain Psychiatric: [Normal mood/affect] Neurological: [Denies weakness in extremities], [denies balance issues] Objective:: Physical Exam: General: Alert and oriented x3, no acute distress, pleasant and cooperative Lungs: Respirations even and unlabored, symmetrical chest expansion Eyes: PERRL Musculoskeletal: Flexion and extension of lumbar [spine] somewhat guarded secondary to pain, [antalgic gait noted] Neurological: Speech clear, no gross sensory deficit Assessment:: Myofascial pain of right cervical paraspinous and right trapezius muscles, and left lumbar paraspinous Plan:: Patient is experiencing significant pain in his low back along the left side during today's visit. Patient did have limited range of motion of his lumbar spine and extreme point tenderness along his left lumbar paraspinous muscles. I have discussed with the patient that he may benefit from trigger point injections at this location. Risk and benefits were explained to the patient. He would like to proceed forward with this plan of care. We will schedule the patient for TPI of his left lumbar paraspinous muscles. Patient has been instructed to contact the clinic with any concerns before the next appointment. Dr. Prieto has reviewed this note and agrees with this plan of care. This note was dictated using voice recognition software and make contain errors or omissions. [facility] Medical History Arthritis Hypertension Family History (Updated 06/05/22 @ 11:14 by Ricarda Tian RN) Other No significant family history Social History Smoking Status: Never smoker second hand exposure: No alcohol intake: never substance use type: denies use current occupational status: retired Travel in the last 8 weeks: None household members: spouse housing: house current occupational exposures/hazards: No caffeine: No
== END ==
PROVIDERS: PCP Family Medicine; Visit Provider Nurse Practitioner Family
DX: M79.18 Myalgia, other site (principal)
CPT/HCPCS: 99212; G0463

== ENCOUNTER 2022-06-22 09:48 | Day surgery (SDC) | payer MEDICARE, OTHER, SELFPAY ==
[2022-06-22 09:57] VITALS: BP 151/79; PULSE 57; RESP 18; O2SAT 99; BMI 25.8
[2022-06-22 10:07] VITALS: BP 160/67; PULSE 64; RESP 18; O2SAT 95
[2022-06-22 10:08] VITALS: BP 160/67; PULSE 64; RESP 18; O2SAT 95
--- NOTE | 2022-06-22 10:10 | EXP.PAIN.PRO ---
Procedure Date: 06/22/22 Time: 10:10 Anesthesiologist:: Tony Curran CRNA Complications:: None Pre-procedure Diagnosis:: Myofascial pain left lumbar paraspinous muscle. Post-procedure Diagnosis:: Same. Indications for Procedure:: Very pleasant 72-year-old male who comes our clinic today for left lumbar paraspinous muscle trigger point injections. Patient describes the pain as constant, dull, stabbing at times in the left lower lumbar area. Procedure Details:: Details of the procedure explained the patient. The patient taken procedure room placed in the sitting position. The area over the left lumbar spine was cleansed using chlorhexidine as a cleansing solution. In 2 separate areas involving the left lumbar paraspinous muscle 4 cc of local anesthetic as well as 20 mg of Depo-Medrol was injected at each area. Patient tolerated procedure without difficulty. No complications. Plan and Disposition:: Patient was discharged without incident. He reports feeling much better upon discharge.
[2022-06-22 10:20] VITALS: BP 142/74; PULSE 53; RESP 20
== END 2022-06-22 10:20 | disposition home or self-care (01) ==
PROVIDERS: PCP Family Medicine; Visit Provider Nurse Anesthetist, Certified Registered
DX: M79.18 Myalgia, other site (principal)
CPT/HCPCS: 20552; J1040

== ENCOUNTER → 2022-07-09 15:12 | Outpatient (POV) | payer MEDICARE, OTHER, SELFPAY ==
[2022-07-09 15:21] VITALS: BP 138/71; PULSE 61; RESP 18; O2SAT 98; BMI 25.1
--- NOTE | 2022-07-09 15:34 | EXP.PAIN.SOA ---
[facility] Pain Management SOAP Note Subjective:: Patient is a pleasant 72-year-old male who presents today for follow-up of left lumbar paraspinous muscle trigger point injections on 06/22/2022. We are currently treating the patient for myofascial pain of his right cervical paraspinous and right trapezius, left lumbar paraspinous muscles. Today patient states that he has had at least 50% improvement following these injections however starting last night he was experiencing significant pain in his neck. Patient denies any new trauma or injury. Patient states he has been playing his [employer] a lot over the weekend and may have aggravated his symptoms with his positioning. Patient describes this as a achy sensation with numbness and tingling radiating up his neck on the right side into his ear. Patient is currently managed with compounding cream that he states does provide additional improvement. Patient states he has been using this to provide some relief. His Alvaro is [id number]. It has been reviewed and appropriate. Review of Systems: General: No recent weight changes, no fever, no sleep disturbances Respiratory: No cough, no shortness of air, no recurring pulmonary infections Cardiovascular/peripheral vascular: No chest pain, no palpitations, no edema, no shortness of breath Gastrointestinal: No new onset incontinence, normal bowel movements reported Genitourinary: No new onset incontinence Musculoskeletal: Right neck pain, right shoulder pain Psychiatric: [Normal mood/affect] Neurological: [Denies weakness in extremities], [denies balance issues] Objective:: Physical Exam: General: Alert and oriented x3, no acute distress, pleasant and cooperative Lungs: Respirations even and unlabored, symmetrical chest expansion Eyes: PERRL Musculoskeletal: Flexion and extension of cervical [spine] somewhat guarded secondary to pain, [antalgic gait noted] point tenderness along right cervical paraspinous and right trapezius muscles Neurological: Speech clear, no gross sensory deficit Assessment:: Myofascial pain of right cervical paraspinous and right trapezius, left lumbar paraspinous muscles Plan:: Patient is experiencing significant pain in his neck and shoulder along the right side. Patient did have limited range of motion of his cervical spine with point tenderness along his right cervical paraspinous and right trapezius muscles during today's exam. I have discussed with the patient that he may benefit from repeat trigger point injections at the sites. Risk and benefits were discussed with the patient. He would like to proceed forward with this plan of care. We will schedule him for TPI of right cervical paraspinous and right trapezius. Patient has been instructed to contact the clinic with any concerns before the next appointment. Dr. Prieto has reviewed this note and agrees with this plan of care. This note was dictated using voice recognition software and make contain errors or omissions. [facility] Disclaimer: The information contained in this section may have been updated after the patient was seen, as this information can be updated by other users. Medical History Arthritis Hypertension Family History Other No significant family history Social History (Updated 06/22/22 @ 10:00 by Shalini Gramajo RN) Smoking Status: Never smoker second hand exposure: No alcohol intake: never substance use type: denies use current occupational status: retired Travel in the last 8 weeks: None household members: spouse housing: house current occupational exposures/hazards: No caffeine: No
== END ==
PROVIDERS: PCP Family Medicine; Visit Provider Nurse Practitioner Family
DX: M79.12 Myalgia of auxiliary muscles, head and neck (principal); Z79.899 Other long term (current) drug therapy
CPT/HCPCS: 99212; G0463

== ENCOUNTER 2022-07-24 09:55 | Day surgery (SDC) | payer MEDICARE, OTHER, SELFPAY ==
[2022-07-24 10:08] VITALS: BP 158/81; PULSE 60; RESP 18; TEMP 36.9; O2SAT 98; BMI 25.8
[2022-07-24 10:28] VITALS: BP 148/83; PULSE 55; RESP 18; O2SAT 96
[2022-07-24 10:29] VITALS: BP 148/83; PULSE 55; RESP 18; O2SAT 96
[2022-07-24 10:35] VITALS: BP 148/70; PULSE 51; RESP 18; O2SAT 98
--- NOTE | 2022-07-24 11:04 | EXP.PAIN.PRO ---
Procedure Date: 07/24/22 Time: 11:00 Anesthesiologist:: Tony Curran CRNA Complications:: None Pre-procedure Diagnosis:: Myofascial pain right posterior cervical paraspinous as well as right trapezius muscle Post-procedure Diagnosis:: Same. Indications for Procedure:: Very pleasant 72-year-old male that comes our clinic today for right posterior cervical paraspinous muscle trigger point injection as well as right trapezius muscle. Patient has extreme point tenderness over these areas. He describes the pain as constant, dull, sharp and stabbing at times. He rates the pain 7/10. Procedure Details:: Details of the procedure explained to the patient. The patient taken procedure room placed in the sitting position. The area over the posterior cervical spine as well as right trapezius muscle was cleaned using chlorhexidine as a cleansing solution. The distal portion of the right posterior cervical paraspinous muscle was injected using a 25-gauge needle after negative aspiration with 3 cc of a solution containing 0.25% Marcaine +1% lidocaine and 40 mg of Depo-Medrol. The same solution was used and 3 cc injected at 2 separate areas over the right trapezius muscle. Patient tolerated procedure without difficulty. There are no complications. Plan and Disposition:: Patient was discharged without incident.
== END 2022-07-24 10:35 | disposition home or self-care (01) ==
PROVIDERS: PCP Family Medicine; Visit Provider Nurse Anesthetist, Certified Registered
DX: M79.18 Myalgia, other site (principal)
CPT/HCPCS: 20552; J1040

== ENCOUNTER → 2022-08-08 13:29 | Outpatient (CLI) | payer MEDICARE, OTHER, SELFPAY | PROVIDERS: PCP Family Medicine; Visit Provider Family Medicine | DX: C61 Malignant neoplasm of prostate (principal) ==

== ENCOUNTER → 2022-08-08 13:34 | Outpatient (POV) | payer MEDICARE, OTHER, SELFPAY ==
[2022-08-08 15:26] VITALS: BP 118/64; PULSE 64; RESP 18; O2SAT 97; BMI 25.4
--- NOTE | 2022-08-08 17:05 | EXP.PAIN.SOA ---
[facility] Pain Management SOAP Note Subjective:: Patient is a pleasant 72-year-old male who presents today for follow-up of trigger point injections at right posterior cervical paraspinous and right trapezius on 07/24/2022. We are currently treating the patient for myofascial pain of right cervical paraspinous and right trapezius, left lumbar paraspinous muscles, neck pain. Today the patient states he has had at least 50% improvement following these injections however only lasting a couple of days. Patient does state his pain is 5 out of 10 today. Patient denies any new trauma or injury. Patient states the pain runs up his neck and down to his collarbone along the right side. Patient does state this is a tingling sensation almost like a TENS machine. Patient is scheduled to see a orthopedic spine doctor in [facility] and is scheduled for a cervical MRI on Saturday. Patient is currently prescribed compounding cream that he does state provides additional improvement. 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 Patient is interested 0333 trying a medication for his neuropathy like symptoms. Patient states he does use ibuprofen to help treat his symptoms. Previously patient was prescribed diclofenac 75 mg twice daily however he stopped taking this because he did not feel like he was getting significant relief in comparison to the ibuprofen. Patient is requesting to start this medication back again. His Alvaro is [id number]. Its been reviewed and appropriate. Review of Systems: General: No recent weight changes, no fever, no sleep disturbances Respiratory: No cough, no shortness of air, no recurring pulmonary infections Cardiovascular/peripheral vascular: No chest pain, no palpitations, no edema, no shortness of breath Gastrointestinal: No new onset incontinence, normal bowel movements reported Genitourinary: No new onset incontinence Musculoskeletal: Neck pain Psychiatric: [Normal mood/affect] Neurological: [Denies weakness in extremities], [denies balance issues] Objective:: Physical Exam: General: Alert and oriented x3, no acute distress, pleasant and cooperative Lungs: Respirations even and unlabored, symmetrical chest expansion Eyes: PERRL Musculoskeletal: Flexion and extension of cervical [spine] somewhat guarded secondary to pain, [antalgic gait noted] Neurological: Speech clear, no gross sensory deficit Assessment:: Neck pain with cervical radiculopathy symptoms, myofascial pain of right cervical paraspinous and right trapezius muscles, left lumbar paraspinous muscles, neuropathy Plan:: Patient is experiencing worsening pain along his neck with neuropathy symptoms. Patient did have limited range of motion of his cervical spine during today's visit. I have discussed with the patient regarding starting him on gabapentin. I will send in a prescription of gabapentin 100 mg at bedtime and provide a 14-day supply of this medication. I will also send in a prescription of diclofenac 75 mg twice daily and give a 1 month supply. Patient has been counseled to take this medication with food to minimize GI upset and to discontinue all other NSAIDs while taking this medication. Patient denies any cardiac or kidney issues. Patient will return to clinic in 1 month for reevaluation of symptoms and follow-up. Patient has been instructed to contact the clinic with any concerns before the next appointment. Dr. Prieto has reviewed this note and agrees with this plan of care. This note was dictated using voice recognition software and make contain errors or omissions. [facility] Disclaimer: The information contained in this section may have been updated after the patient was seen, as this information can be updated by other users. Medical History Arthritis Hypertension Family History (Revie
== END | disposition home or self-care (01) ==
PROVIDERS: PCP Family Medicine; Visit Provider Nurse Practitioner Family
DX: M54.12 Radiculopathy, cervical region (principal); M79.18 Myalgia, other site; G62.9 Polyneuropathy, unspecified
CPT/HCPCS: 99212; G0463

== ENCOUNTER → 2022-08-13 13:44 | Outpatient (CLI) | payer MEDICARE, OTHER, SELFPAY ==
--- NOTE | 2022-08-13 13:46 | MR_ITS ---
FINAL REPORT CLINICAL HISTORY: OSTEOARTHRITIS OF SPINE. right sided shoulder, neck, and face pain. FINDINGS: Multiplanar MR imaging of the cervical spine was performed without contrast. On the sagittal T2-weighted images, disc degeneration is seen throughout. There are endplate changes at multiple levels. There is no evidence of fracture. There is mild anterolisthesis of C3 on C4. The cervical spinal cord has an unremarkable appearance without evidence of mass, edema or syrinx. No significant canal stenosis is identified. The cervicomedullary junction is normal. C2-3: There is no significant canal stenosis or neural foraminal narrowing. C3-4: There is an annular bulge with uncovertebral osteophytes. There is moderate right and mild left neural foraminal narrowing. C4-5: There is a disc osteophyte complex. There is severe right and moderate left neural foraminal narrowing. C5-6: There is a disc osteophyte complex. There is moderate right and severe left neural foraminal narrowing. C6-7: There is a disc osteophyte complex. There is mild right and moderate left neural foraminal narrowing. C7-T1: There is no significant canal stenosis or neural foraminal narrowing. IMPRESSION: Multilevel degenerative disc disease with areas of neural foraminal narrowing. No focal disc protrusion or significant central canal stenosis. Reviewed, Interpreted and Dictated by Vinh Palacios III, MD Transcribed by Eddie Isaac Authenticated and . [facility]
[2022-08-13 15:39] LABS: Amphetamine/Metha Screen,Urine Negative ng/ml (<1000)
[2022-08-13 15:40] LABS: Barbiturates Screen,Urine Negative ng/ml (<200)
[2022-08-13 15:41] LABS: Benzodiazepines Screen,Urine Negative ng/ml (<200); Cannabinoid Screen,Urine Negative ng/ml (<50)
[2022-08-13 15:42] LABS: Cocaine Screen,Urine Negative ng/ml (<300); Methadone Screen,Urine Negative ng/ml (<300)
[2022-08-13 15:43] LABS: Opiate Screen,Urine Negative ng/ml (<300)
[2022-08-13 15:44] LABS: Phencyclidine Screen,Urine Negative ng/ml (<25)
[2022-08-13 16:44] LABS: Prostate Specific Ag, Diagnost 2.19 ng/ml (0.0-4.0)
[2022-08-15 16:09] LABS: PSA, Free 0.16 ng/mL; Prostate Specific Ag 1.9 ng/mL (0.0-4.0)
[2022-08-19 02:11] LABS: Opiates Negative (Cutoff=100)
== END ==
PROVIDERS: Nurse Practitioner Family; PCP Family Medicine; Visit Provider Family Medicine
DX: M47.22 Other spondylosis with radiculopathy, cervical region (principal); C61 Malignant neoplasm of prostate; Z79.891 Long term (current) use of opiate analgesic
CPT/HCPCS: 36415; 72141; 76376; 80305; 80361; 80365; 84153; 84154; G0480

== ENCOUNTER → 2022-08-20 10:43 | Outpatient (CLI) | payer MEDICARE, OTHER, SELFPAY ==
--- NOTE | 2022-08-20 | CA_ITS ---
FINAL REPORT TECHNIQUE: Color Doppler, duplex Doppler and casper scale sonography of the bilateral neck arterial vasculature was performed. Velocities were measured in the carotid arteries. Stenosis evaluation based on the validated velocity criteria. CLINICAL HISTORY: SYNCOPE,HTN,VERTIGO FINDINGS: The peak systolic velocity of the right common carotid artery is 104 cm/s. The peak systolic velocity of the right internal carotid artery is 115 cm/s and end diastolic velocity 37 cm/s. A small amount of plaque is present. The right external carotid artery is patent. The right vertebral artery is patent with antegrade flow. The peak systolic velocity of the left common carotid artery is 99 cm/s. The peak systolic velocity of the left internal carotid artery is 110 cm/s and end diastolic velocity 26 cm/s. A small amount of plaque is present. The left external carotid artery is patent.The left vertebral artery is patent with antegrade flow. IMPRESSION: Less than 50% bilateral carotid stenoses. Bilateral patent vertebral arteries with antegrade flow. If indicated, CTA or MRA could further evaluate. Reviewed, Interpreted and Dictated by Kate Leblanc MD Transcribed by Mari Mckeon Authenticated and [facility]
== END ==
PROVIDERS: PCP Family Medicine; Visit Provider Family Medicine
DX: R55 Syncope and collapse (principal)
CPT/HCPCS: 93225; 93226; 93880

== ENCOUNTER → 2022-09-10 11:30 | Outpatient (POV) | payer MEDICARE, OTHER, SELFPAY ==
[2022-09-10 12:21] VITALS: BP 139/88; PULSE 55; RESP 18; O2SAT 97; BMI 25.8
--- NOTE | 2022-09-10 12:22 | EXP.PAIN.SOA ---
[facility] Pain Management SOAP Note Subjective:: Patient is a pleasant 72-year-old male who presents today for follow-up. We are currently treating the patient for myofascial pain of cervical paraspinous and right trapezius, left lumbar paraspinous, neck pain with cervical radiculopathy symptoms. Today he rates his pain a 3 out of 10. Patient denies any new trauma or injury. Patient denies any change to location or type of pain he experiences. Patient states he did try the gabapentin 100 mg at bedtime however he was unable to tolerate the medication due to severe dizziness and sleepiness. Patient is currently prescribed diclofenac 75 mg twice a day. Patient states this medication does significantly improve his symptoms in comparison to the ibuprofen 800 mg. Patient states he has stopped taking all other NSAIDs while taking his diclofenac. Patient is prescribed compounding cream that provides additional improvement. Patient did recently go to [facility] to see a neurosurgeon who stated at this time he was not recommending surgical intervention. Patient states that he has talked to a [id number] who experience these similar symptoms and she is started traction therapy and has had significant improvement. Patient also states he has a another [id number] who uses herbal remedies and did recommend segovia juice concentrate to drink with an 8 ounce glass of water and oil of wild oregano in combination with coconut oil as a topical cream. Patient states with the use additional supplements he has had significant improvement. Patient has been doing stretching exercises which put traction on his neck and help with his tingling sensation. Patient is interested in starting physical therapy. His Alvaro is [id number]. Its been reviewed and appropriate. Review of Systems: General: No recent weight changes, no fever, no sleep disturbances Respiratory: No cough, no shortness of air, no recurring pulmonary infections Cardiovascular/peripheral vascular: No chest pain, no palpitations, no edema, no shortness of breath Gastrointestinal: No new onset incontinence, normal bowel movements reported Genitourinary: No new onset incontinence Musculoskeletal: Neck pain Psychiatric: [Normal mood/affect] Neurological: [Denies weakness in extremities], [denies balance issues] Objective:: Physical Exam: General: Alert and oriented x3, no acute distress, pleasant and cooperative Lungs: Respirations even and unlabored, symmetrical chest expansion Eyes: PERRL Musculoskeletal: Flexion and extension of cervical [spine] somewhat guarded secondary to pain, [antalgic gait noted] Neurological: Speech clear, no gross sensory deficit Assessment:: Myofascial pain of cervical paraspinous, right trapezius, left lumbar paraspinous, neck pain with cervical radiculopathy symptoms Plan:: Patient continues to experience significant pain in his neck with decreased range of motion however he is doing much better with the addition of supplemental therapies recommended by his [id number]-ynq's. I will order the patient physical therapy at today's visit. Patient states he does not need any refills on his diclofenac. He will return to clinic in 3 months for reevaluation of symptoms and plan of care. Patient has been instructed to contact the clinic with any concerns before the next appointment. Dr. Prieto has reviewed this note and agrees with this plan of care. This note was dictated using voice recognition software and make contain errors or omissions. [facility] Disclaimer: The information contained in this section may have been updated after the patient was seen, as this information can be updated by other users. Medical History Arthritis Hypertension Family History Other No significant family history Social History S
== END ==
PROVIDERS: PCP Family Medicine; Visit Provider Nurse Practitioner Family
DX: M79.18 Myalgia, other site (principal); M54.12 Radiculopathy, cervical region; M54.2 Cervicalgia
CPT/HCPCS: 99212; G0463

== ENCOUNTER 2023-08-20 13:35 | Outpatient (CLI) | payer MEDICARE, OTHER, SELFPAY ==
--- NOTE | 2023-08-20 13:38 | XR_ITS ---
FINAL REPORT CLINICAL HISTORY: right shoulder pain FINDINGS: Right shoulder Three views were obtained. There is no acute fracture or dislocation. There is mild AC joint degenerative change. There is a loose body superior to the acromioclavicular joint measuring 5 mm. IMPRESSION: Degenerative and chronic appearing findings. Reviewed, Interpreted and Dictated by Vinh Palacios III, MD Transcribed by Alexia Connors Authenticated and [facility]
== END 2023-08-20 23:59 ==
LOC: RAD 13:36
PROVIDERS: PCP Family Medicine; Visit Provider Orthopaedic Surgery
DX: M25.511 Pain in right shoulder (principal)
CPT/HCPCS: 73030

== ENCOUNTER → 2023-09-19 10:54 | Outpatient (POV) | payer MEDICARE, OTHER, SELFPAY ==
--- NOTE | 2023-09-19 10:56 | EXP.PAIN.SOA ---
[facility] Pain Management SOAP Note Subjective:: Patient is a pleasant 72-year-old male who presents today for follow-up. We are currently treating the patient for myofascial pain of cervical paraspinous and right trapezius, left lumbar paraspinous, neck pain with cervical radiculopathy symptoms, sacroiliitis. Today he rates his pain a 7 out of 10. Patient denies any new trauma or injury. He does state starting around the time of Thanksgiving he did start to have increased pain in and around his low back and bilateral hips. He does describe this as a constant aching, throbbing sensation with pressure. Patient does state that the pain is aggravated with increased walking or in times where he is in his recliner and the added pressure on his low back/hip area makes it worse. Patient does state the pain interferes with his ability perform activities of daily living such as cooking and cleaning. Patient does have a history of sacroiliitis in the past. Patient is interested in injection therapy if possible. Patient is currently prescribed diclofenac 75 mg twice a day in the past however he states he does not take this on a regular basis and does not need any refills and compounding cream. He is not on any scheduled medications. His Alvaro has been reviewed and appropriate. Review of Systems: General: No recent weight changes, no fever, no sleep disturbances Respiratory: No cough, no shortness of air, no recurring pulmonary infections Cardiovascular/peripheral vascular: No chest pain, no palpitations, no edema, no shortness of breath Gastrointestinal: No new onset incontinence, normal bowel movements reported Genitourinary: No new onset incontinence Musculoskeletal: Low back pain, bilateral hip pain Psychiatric: [Normal mood/affect] Neurological: [Denies weakness in extremities], [denies balance issues] Objective:: Physical Exam: General: Alert and oriented x3, no acute distress, pleasant and cooperative Lungs: Respirations even and unlabored, symmetrical chest expansion Eyes: PERRL Musculoskeletal: Flexion and extension of lumbar [spine] somewhat guarded secondary to pain, [antalgic gait noted] point tenderness along bilateral SIs with positive bilateral Joan's, Don's, Gaenslen's, compression and distraction exam Neurological: Speech clear, no gross sensory deficit Assessment:: myofascial pain of cervical paraspinous and right trapezius, left lumbar paraspinous, neck pain with cervical radiculopathy symptoms, sacroiliitis Plan:: Patient is experiencing worsening pain in his low back and bilateral hips with limited range of motion. Patient did have point tenderness along his bilateral SIs and a positive bilateral Joan's, Don's, Gaenslen's, compression and distraction exam. I have discussed with the patient that he may benefit from bilateral SI injections. Risk and benefits were discussed with patient and he would like to proceed forward with this plan of care. Patient will be scheduled for bilateral SI injections under fluoroscopy. Patient has been instructed to contact the clinic with any concerns before the next appointment. Dr. Prieto has reviewed this note and agrees with this plan of care. This note was dictated using voice recognition software and make contain errors or omissions. [facility] Disclaimer: The information contained in this section may have been updated after the patient was seen, as this information can be updated by other users. Medical History Arthritis Hypertension Family History Other No significant family history Social History Smoking Status: Never smoker second hand exposure: No alcohol intake: never substance use type: denies use current occupational status: retired Travel in the last 8 weeks: None household members: spouse housing: house current occupational exposures/hazards: No caffeine: No
[2023-09-19 11:58] VITALS: BP 120/75; PULSE 54; RESP 18; O2SAT 98; BMI 24.3
== END ==
PROVIDERS: PCP Family Medicine; Visit Provider Nurse Practitioner Family
DX: M79.18 Myalgia, other site (principal); M54.12 Radiculopathy, cervical region; M46.1 Sacroiliitis, not elsewhere classified
CPT/HCPCS: 99212; G0463

== ENCOUNTER 2023-09-24 11:16 | Outpatient (CLI) | payer MEDICARE, OTHER, SELFPAY ==
--- NOTE | 2023-09-24 11:20 | XR_ITS ---
FINAL REPORT TECHNIQUE: Chest PA & Lateral CLINICAL HISTORY: WEIGHT LOSS COMPARISON: None FINDINGS: 2 views of the chest were performed. The heart size is normal. The mediastinum is within normal limits. There is no acute cardiopulmonary process. There are no pleural effusions. There is no pneumothorax. The bony thorax appears intact. IMPRESSION: No acute cardiopulmonary process. Reviewed, Interpreted and Dictated by Kodak Sanchez MD Transcribed by Shalini Hobson Authenticated and [facility]
== END 2023-09-24 23:59 ==
PROVIDERS: PCP Family Medicine; Visit Provider Family Medicine
DX: R63.4 Abnormal weight loss (principal)
CPT/HCPCS: 71046

== ENCOUNTER 2023-10-08 08:22 | Day surgery (SDC) | payer MEDICARE, OTHER, SELFPAY ==
[2023-10-08 08:53] VITALS: BP 144/72; PULSE 53; RESP 16; TEMP 36.4; O2SAT 98; BMI 24.3
[2023-10-08 09:38] VITALS: BP 138/75; PULSE 48; RESP 18; O2SAT 98
--- NOTE | 2023-10-08 09:46 | P.PCN_ITS ---
Procedure Date: 10/08/23 Time: 09:25 Anesthesiologist:: Tony Curran CRNA Complications:: None Pre-procedure Diagnosis:: Bilateral sacroiliitis Post-procedure Diagnosis:: Same Indications for Procedure:: Patient is a very pleasant 73-year-old male comes our clinic today for bilateral sacroiliac joint injection. Patient describing posterior hip pain as constant, dull, aching. Patient states this has been going on for 3 months. He rates his pain 8/10. Has difficulty transitioning from sitting to standing. Difficulty with flexion at the lumbar spine.. Procedure Details:: Procedure: Bilateral sacroiliac joint injections under fluoroscopy Informed consent was obtained and the risks and benefits of the procedure were explained to the patient.~ The patient was taken to the procedure room and noninvasive monitors were placed including a noninvasive blood pressure cuff and pulse oximeter.~ The patient was placed prone on the procedure table. Both hips were cleansed using Betadine as a cleansing solution. C-arm fluoroscopy was used to view the right sacroiliac joint.~ The skin and subcutaneous tissues were anesthetized using lidocaine 1.5% and a 25-gauge needle.~ After this, a 22-gauge spinal needle was inserted under fluoroscopic guidance into the inferior aspect of the right sacroiliac joint.~ Omnipaque dye was injected and good spread was seen throughout the joint.~ After this, approximately 5 mL of bupivacaine, 0.25% and Depo-Medrol, 40 mg was incrementally injected into the right sacroiliac joint. We then moved to the left sacroiliac joint.~ The skin and subcutaneous tissues were anesthetized using lidocaine 1.5% and a 25-gauge needle.~ After this, a 22- gauge spinal needle was inserted under fluoroscopic guidance into the inferior aspect of the left sacroiliac joint.~ Omnipaque dye was injected and good spread was seen throughout the joint. After this, approximately 5 mL of bupivacaine, 0.25% and Depo-Medrol, 40 mg was incrementally injected into the left sacroiliac joint.~ The patient tolerated the procedure well with no complications. The patient was observed in the Pain Clinic and then was discharged home neurologically intact. Plan and Disposition:: Was discharged without incident.
[2023-10-08] MEDS: LIDOCAINE 1% 5ML PF VIAL 5 ML (10:26)
[2023-10-08 10:31] VITALS: BP 117/65; PULSE 61; RESP 18; O2SAT 98
[2023-10-08] MEDS: methylPREDNISolone ACETATE 80MG/ML VIAL 80 MG (10:31)
[2023-10-08] MEDS: BUPIVACAINE 0.25% 10ML INJ 25 MG IJ (10:31)
[2023-10-08 10:35] VITALS: BP 117/65; PULSE 61; RESP 18; O2SAT 98
== END 2023-10-08 09:28 | disposition home or self-care (01) ==
LOC: SC.PAINP 08:23
PROVIDERS: PCP Family Medicine; Visit Provider Nurse Anesthetist, Certified Registered
DX: M46.1 Sacroiliitis, not elsewhere classified (principal)
CPT/HCPCS: 27096; 77002; G0260; J1040

== ENCOUNTER 2023-10-21 11:04 | Outpatient (POV) | payer MEDICARE, OTHER, SELFPAY ==
--- NOTE | 2023-10-21 11:07 | A.OFFVIS_ITS ---
[facility] Pain Management SOAP Note Subjective:: Patient is a pleasant 72-year-old male who presents today for follow-up of bilateral SI injections on 10/08/2023. We are currently treating the patient for myofascial pain of cervical paraspinous and right trapezius, left lumbar paraspinous, neck pain with cervical radiculopathy symptoms, sacroiliitis. Today he rates his pain a 3 out of 10. Patient denies any new trauma or injury. He states he has had at least 70% improvement following this injection and feels like it is still helping. He does state that he is experiencing worsening pain in his right shoulder. He describes this as a dull achy sensation that is a 7 out of 10. He states that he was playing with the Frisbee and his dog and doing things with his bow which may have aggravated the symptoms. Patient has had injection therapy in the past for this joint and had significant improvements more than 50% lasting several months. Patient does state that he is interested in repeating this injection. He states that he has been around 3 months since his last shoulder injection. He does state the pain interferes with his ability perform duties of daily living such as cooking and cleaning. Patient is currently prescribed diclofenac 75 mg twice a day in the past however he states he does not take this on a regular basis and does not need any refills. He is also prescribed compounded cream. Patient has recently been prescribed pain medication from an outside provider. His Alvaro has been reviewed and appropriate. Review of Systems: General: No recent weight changes, no fever, no sleep disturbances Respiratory: No cough, no shortness of air, no recurring pulmonary infections Cardiovascular/peripheral vascular: No chest pain, no palpitations, no edema, no shortness of breath Gastrointestinal: No new onset incontinence, normal bowel movements reported Genitourinary: No new onset incontinence Musculoskeletal: Right shoulder Psychiatric: [Normal mood/affect] Neurological: [Denies weakness in extremities], [denies balance issues] Objective:: Physical Exam: General: Alert and oriented x3, no acute distress, pleasant and cooperative Lungs: Respirations even and unlabored, symmetrical chest expansion Eyes: PERRL Musculoskeletal: Flexion and extension of right shoulder somewhat guarded secondary to pain, [antalgic gait noted] Neurological: Speech clear, no gross sensory deficit Assessment:: Myofascial pain, neck pain with cervical radiculopathy symptoms, bilateral sacroiliitis, right shoulder pain Plan:: Patient is experiencing worsening pain in his right shoulder with limited range of motion. I have discussed with patient that he needs benefit from intra- articular shoulder injection. Risk and benefits were discussed with the patient and he would like to proceed forward with this plan of care. Patient will be scheduled for right shoulder intra-articular injection. Patient has been instructed to contact the clinic with any concerns before the next appointment. Dr. Prieto has reviewed this note and agrees with this plan of care. This note was dictated using voice recognition software and make contain errors or omissions. [facility] Disclaimer: The information contained in this section may have been updated after the patient was seen, as this information can be updated by other users. Medical History Arthritis Hypertension Family History Other No significant family history Social History Smoking Status: Never smoker second hand exposure: No alcohol intake: never substance use type: denies use current occupational status: retired Travel in the last 8 weeks: None household members: spouse housing: house current occupational exposures/hazards: No caffeine: No
[2023-10-21 11:29] VITALS: BP 135/75; PULSE 51; RESP 18; O2SAT 98; BMI 24.3
== END 2023-10-21 23:59 ==
PROVIDERS: PCP Family Medicine; Visit Provider Nurse Practitioner Family
DX: M79.18 Myalgia, other site (principal); M54.12 Radiculopathy, cervical region; M46.1 Sacroiliitis, not elsewhere classified; M25.511 Pain in right shoulder
CPT/HCPCS: 99212; G0463

== ENCOUNTER 2023-11-12 09:30 | Day surgery (SDC) | payer MEDICARE, OTHER, SELFPAY ==
[2023-11-12 09:58] VITALS: BP 151/72; PULSE 52; RESP 18; TEMP 37.2; O2SAT 98; BMI 23.9
[2023-11-12] MEDS: methylPREDNISolone ACETATE 80MG/ML VIAL 80 MG (10:05)
[2023-11-12] MEDS: BUPIVACAINE 0.25% 10ML INJ 25 MG IJ (10:05)
[2023-11-12] MEDS: LIDOCAINE 1% 5ML PF VIAL 5 ML (10:05)
[2023-11-12 10:13] VITALS: BP 159/70; PULSE 51; RESP 18; O2SAT 98
--- NOTE | 2023-11-12 10:18 | P.PCN_ITS ---
Procedure Date: 11/12/23 Time: 10:00 Anesthesiologist:: Tony Curran CRNA Complications:: None Pre-procedure Diagnosis:: DJD right shoulder. Chronic right shoulder pain. Post-procedure Diagnosis:: Same. Indications for Procedure:: Patient is a very pleasant 73-year-old male comes our clinic today for a right intra-articular shoulder injection. Patient has 5/5 strength in the right arm. However, he is having decreased range of motion due to right shoulder pain. Patient has been evaluated by orthopedics and no surgery recommended. Will continue to treat him conservatively. He responded very well to right intra- articular shoulder injection in the past. Procedure Details:: Procedure Details: Right shoulder intra-articular injection Informed consent was obtained risk and benefits of the procedure were explained to the patient. Patient was taken to the procedure room. The right shoulder was prepped using ChloraPrep. A 25-gauge needle was used first anteriorly, laterally, and then posteriorly to inject 10 mL bupivacaine 0.25% and Depo- Medrol 40 mg. Patient tolerated procedure well with no complications. Plan and Disposition:: Patient was discharged without incident.
== END 2023-11-12 10:13 | disposition home or self-care (01) ==
PROVIDERS: PCP Family Medicine; Visit Provider Nurse Anesthetist, Certified Registered
DX: M19.011 Primary osteoarthritis, right shoulder (principal); M25.511 Pain in right shoulder; G89.29 Other chronic pain
CPT/HCPCS: 20610; J1010

== ENCOUNTER 2023-11-27 11:28 | Outpatient (POV) | payer MEDICARE, OTHER, SELFPAY ==
[2023-11-27 11:36] VITALS: BP 138/79; PULSE 53; RESP 16; O2SAT 100; BMI 25.1
--- NOTE | 2023-11-27 12:12 | EXP.PAIN.SOA ---
[facility] Pain Management SOAP Note Subjective:: Patient is a pleasant 73-year-old male who presents today for follow-up of right intra-articular shoulder injection on 11/12/2023. Today he rates his pain a 6 out of 10. Patient does state that he has had at least 50% improvement following this injection and feels like it still helping. He states that he does have better range of motion in that shoulder and able to do more. He does state today that his pain that he is experiencing is more related to his low back and right leg. Patient describes this as an aching sensation which weakness and numbness going down into his thigh. Patient does state that he frequently feels a hitch sensation when he gets up to walk. He also states that he has trouble getting from a seated position up due to his pain in his leg. He states the pain is interfering with his ability to perform activities of daily living such as cooking and cleaning. He is interested in any help we may be able to provide with regards to this. Patient is currently managed with diclofenac 75 mg twice a day however he states he still does not take this on a regular basis. Patient is also prescribed compounded cream. Patient does also mention today that he has [id number] who lives in [place] does take a medication that really does seem to help his overall pain that is a combination of paracetamol/codeine and is asking if this is something we could possibly try for him. His Alvaro has been reviewed and is appropriate. Review of Systems: General: No recent weight changes, no fever, no sleep disturbances Respiratory: No cough, no shortness of air, no recurring pulmonary infections Cardiovascular/peripheral vascular: No chest pain, no palpitations, no edema, no shortness of breath Gastrointestinal: No new onset incontinence, normal bowel movements reported Genitourinary: No new onset incontinence Musculoskeletal: Low back pain, right leg pain Psychiatric: [Normal mood/affect] Neurological: [Denies weakness in extremities], [denies balance issues] Objective:: Physical Exam: General: Alert and oriented x3, no acute distress, pleasant and cooperative Lungs: Respirations even and unlabored, symmetrical chest expansion Eyes: PERRL Musculoskeletal: Flexion and extension of lumbar [spine] somewhat guarded secondary to pain, [antalgic gait noted] positive right leg raise with decreased sensation to light touch and decreased reflexes Neurological: Speech clear, no gross sensory deficit Assessment:: Degenerative disc disease of cervical and lumbar spine with cervical and lumbar radiculopathy symptoms, myofascial pain, bilateral sacroiliitis, right shoulder pain Plan:: Patient is experiencing worsening pain in his low back with radiating symptoms down in his right leg and thigh. Patient did have a positive right leg raise with decreased sensation to light touch decreased reflexes. I discussed with the patient that he may benefit from lumbar transforaminal epidural steroid injection. Risk and benefits were discussed with the patient and he would like to proceed forward with this plan of care. I have counseled the patient that I will review over his medications however I do not guarantee that we can prescribe any scheduled medications. Patient acknowledges understanding. Patient has tried and failed conservative therapies. We will schedule the patient for a right transforaminal epidural steroid injection L4-L5 and L5-S1 under fluoroscopy. Patient is not on any blood thinners. Patient has been instructed to contact the clinic with any concerns before the next appointment. Dr. Prieto has reviewed this note and agrees with this plan of care. This note was dictated using voice recognition software and make contain errors or omissions. [facility] Disclaimer: The information contained in this section may have been updated after the patient was seen, as this information can be updated by other users. Medical History Arthritis Hypertension Family History Other No significant family history Social History Smoking Status: Never smoker second hand exposure: No alcohol intake: never substance use type: denies use current occupational status: other Travel in the last 8 weeks: None household members: spouse housing: house current occupational exposures/hazards: No caffeine: No
== END 2023-11-27 23:59 | disposition home or self-care (01) ==
PROVIDERS: PCP Family Medicine; Visit Provider Nurse Practitioner Family
DX: M50.10 Cervical disc disorder with radiculopathy, unspecified cervical region (principal); M51.16 Intervertebral disc disorders with radiculopathy, lumbar region; M79.10 Myalgia, unspecified site; M46.1 Sacroiliitis, not elsewhere classified; M25.511 Pain in right shoulder
CPT/HCPCS: 99212; G0463

== ENCOUNTER 2024-01-16 09:52 | Outpatient (CLI) | payer MEDICARE, SELFPAY ==
[2024-01-16 10:53] LABS: Basophils # 0.1 K/mm3 (0-0.2); Basophils % 0.9 % (0.1-2.0); Eosinophils # 0.2 K/mm3 (0.0-0.4); Eosinophils % 2.2 % (0.1-12.0); Hematocrit 43.2 % (42.0-52.0); Hemoglobin 14.9 g/dL (14.1-18.0); Lymphocytes # 1.1 K/mm3 (0.7-4.5); Lymphocytes % 15.7 % (10-50); Mean Corpuscular HGB Conc 34.5 g/dL (31.8-35.4); Mean Corpuscular Volume 92.8 fl (80-94); Mean Platelet Volume 8.6 fl (7.4-10.4); Monocytes # 0.3 K/mm3 (0.1-1.0); Monocytes % 4.6 % (1.7-9.3); Neutrophils # 5.4 K/mm3 (1.8-7.8); Neutrophils % 76.6 % (37.0-80.0); Platelet Count 190 K/mm3 (142-424); Red Blood Count 4.66 M/mm3 (4.60-6.20); Red Cell Distribution Width 14.1 % (11.5-17.5); White Blood Count 7.1 K/mm3 (4.8-10.8)
[2024-01-16 11:20] LABS: Alanine Aminotransferase 23 U/L (12-78); Albumin Level 4.1 g/dl (3.5-5.0); Albumin/Globulin Ratio 1.7 (1.1-1.8); Alkaline Phosphatase 50 U/L (38-126); Anion Gap 11.5 mEq/L (5-15); Aspartate Amino Transferase 28 U/L (17-59); Bilirubin,Total 1.4 mg/dl (0.2-1.3); Blood Urea Nitrogen 22 mg/dl (9-20); Calcium 9.1 mg/dl (8.4-10.2); Carbon Dioxide 30 mmol/L (22.0-30.0); Chloride 100 mmol/L (98-107); Estimated Glomerular Filt Rate 95 ml/min (>60); GFR (African American) 115 ML/MIN (>60); Globulin 2.4 g/dL (1.3-3.2); Glucose 76 mg/dl (74-100); Potassium 3.5 mmoL/L (3.5-5.1); Sodium 138 mmol/L (136-145); Total Protein,Serum 6.5 g/dl (6.3-8.2)
[2024-01-16 11:32] LABS: Intact Parathyroid Hormone 38.5 pg/mL (7.5-53.5)
[2024-01-16 11:51] LABS: Thyroid Stimulating Hormone 0.55 uIU/mL (0.465-4.68)
[2024-01-17 08:20] LABS: Thyroid Peroxidase Antibodies <9 IU/mL (0-34)
[2024-01-17 14:35] LABS: Endomysial IgA Antibody Negative (Negative)
[2024-01-17 15:11] LABS: Deamidated Gliadin Abs, IgA 5 units (0-19); Deamidated Gliadin Abs, IgG 3 units (0-19); Tissue Transglutaminase IgA Ab <2 U/mL (0-3); Tissue Transglutaminase IgG Ab 3 U/mL (0-5)
[2024-01-17 18:10] LABS: H. pylori Breath Test Negative (Negative)
[2024-01-18 10:00] LABS: Reticulin IgA Antibody Negative titer (Neg:<1:2.5)
[2024-01-19 04:07] LABS: F001-IgE Egg White <0.10 kU/L (Class 0); F002-IgE Milk 0.93 kU/L (Class II); F003-IgE Codfish <0.10 kU/L (Class 0); F004-IgE Wheat 0.12 kU/L (Class 0/I); F010-IgE Sesame Seed <0.10 kU/L (Class 0); F014-IgE Soybean <0.10 kU/L (Class 0); F024-IgE Shrimp <0.10 kU/L (Class 0); F256-IgE Walnut <0.10 kU/L (Class 0); F338-IgE Scallop <0.10 kU/L (Class 0)
== END 2024-01-16 23:59 | disposition home or self-care (01) ==
LOC: LAB 09:54
PROVIDERS: PCP Family Medicine; Visit Provider Physician Assistant
DX: R10.33 Periumbilical pain (principal); R63.4 Abnormal weight loss; Z68.25 Body mass index [BMI] 25.0-25.9, adult; J30.2 Other seasonal allergic rhinitis
CPT/HCPCS: 36415; 80053; 83013; 83516; 83970; 84443; 85025; 86003; 86008; 86255; 86256; 86376

== ENCOUNTER 2024-01-17 09:14 | Outpatient (CLI) | payer MEDICARE, SELFPAY ==
[2024-01-17 10:04] LABS: Occult Blood,Stool NEGATIVE (Negative)
== END 2024-01-17 23:59 | disposition home or self-care (01) ==
LOC: LAB.DROPOF 09:15
PROVIDERS: PCP Family Medicine; Visit Provider Physician Assistant
DX: R10.33 Periumbilical pain; R63.4 Abnormal weight loss
CPT/HCPCS: 82272; G0328

== ENCOUNTER 2024-01-28 08:51 | Outpatient (CLI) | payer MEDICARE, SELFPAY ==
--- NOTE | 2024-01-28 09:00 | US_ITS ---
FINAL REPORT CLINICAL HISTORY: GENERALIZED ABD PAIN; ABNORMAL WEIGHT LOSS COMPARISON: None FINDINGS: The gallbladder shows no wall thickening, distention or stone disease. No biliary ductal dilatation is appreciated. No fluid collections are seen. Limited portions of the right liver are unremarkable. There is a benign-appearing cyst present in the left lobe of the liver, measuring 1.9 cm in greatest diameter. Limited portions of the right and left kidneys are unremarkable. Visualization of the spleen is limited secondary to patient body habitus. The pancreas is poorly visualized secondary to overlying bowel gas. IMPRESSION: 1. No evidence of cholelithiasis 2. No evidence of biliary obstruction Reviewed, Interpreted and Dictated by Marcella Morin MD Transcribed by Elva Dow Authenticated and [facility]
== END 2024-01-28 23:59 | disposition home or self-care (01) ==
LOC: RAD 08:53
PROVIDERS: PCP Family Medicine; Visit Provider Physician Assistant
DX: R10.84 Generalized abdominal pain (principal); R63.4 Abnormal weight loss
CPT/HCPCS: 76700

== ENCOUNTER 2024-02-04 11:34 | Outpatient (POV) | payer MEDICARE, SELFPAY | END 2024-02-04 23:59 | disposition home or self-care (01) | LOC: SC 11:34 | PROVIDERS: PCP Family Medicine; Visit Provider Dermatology | DX: Z00.00 Encounter for general adult medical examination without abnormal findings (principal) ==

== ENCOUNTER 2024-02-11 10:27 | Outpatient (CLI) | payer MEDICARE, SELFPAY ==
--- NOTE | 2024-02-11 10:38 | NM_ITS ---
FINAL REPORT CLINICAL HISTORY: ABDOMINAL PAIN,NAUSEA, WEIGHT LOSS FINDINGS: Sequential anterior projection images of the abdomen were obtained after the intravenous injection of 7.82 mCi technetium 99m Choletec. There is normal uptake of radiotracer by the liver. The bile ducts are visualized by 10 minutes. Gallbladder activity is seen by 15 minutes. Bowel activity is noted by 10 minutes. After 1 hour, 1.5 ?g of CCK was injected intravenously for calculation of gallbladder ejection fraction. The gallbladder ejection fraction is 98%, which is within normal limits. IMPRESSION: No evidence of cystic duct or bile duct obstruction. Normal gallbladder ejection fraction of 98%. Authenticated and [facility]
[2024-02-11] MEDS: SODIUM CHLORIDE 0.9% 10ML SYR (RAD ONLY) 10 ML IV (10:45)
[2024-02-11] MEDS: SINCALIDE 1.5 MCG in 0.9 % SODIUM CHLORIDE 50 ML 100 MCG IV (11:36)
[2024-02-11] MEDS: ISOTOPE CHOLETECH;1 DOSE (UP TO 15 MCI) IV (11:36)
== END 2024-02-11 23:59 | disposition home or self-care (01) ==
PROVIDERS: PCP Family Medicine; Visit Provider Physician Assistant
DX: R10.9 Unspecified abdominal pain (principal); R11.0 Nausea; R63.4 Abnormal weight loss; Z68.25 Body mass index [BMI] 25.0-25.9, adult
CPT/HCPCS: 78227; A9537; J2805

== ENCOUNTER 2024-06-22 06:46 | Outpatient (CLI) | payer MEDICARE, SELFPAY ==
--- NOTE | 2024-06-22 06:54 | CT_ITS ---
FINAL REPORT CLINICAL HISTORY: .former smoker quit 30 years ago, 1ppd x27 years FINDINGS: CTDI vol (mGy): 2.90 DLP: 105.[address] images of the chest were obtained using the low-dose protocol for screening.There is a calcified right hilar lymph node. There is no evidence of mediastinal or hilar mass or adenopathy. No axillary mass or adenopathy is identified. On the lung window images, a 3 mm nodule seen at the periphery of the right upper lobe on image 53 of series 4. IMPRESSION: 3 mm nodule in the periphery of the right upper lobe. Lung RADS category 2. Recommend 12 month followup low-dose CT for further evaluation. Reviewed, Interpreted and Dictated by Kodak Sanchez MD Transcribed by Mari Mckeon Authenticated and [facility]
--- NOTE | 2024-06-22 06:54 | US_ITS ---
FINAL REPORT CLINICAL HISTORY: SCREENING FOR AAA-- HX OF TOBACCO USE FINDINGS: Sonographic images were obtained of the abdominal aorta. The abdominal aorta measures up to in greatest dimensions. The common iliac arteries are within normal limits. There is moderate echogenic and shadowing plaque noted. IMPRESSION: No evidence of aortic aneurysm. Reviewed, Interpreted and Dictated by Kodak Sanchez MD Transcribed by Mari Mckeon Authenticated and [facility]
== END 2024-06-22 23:59 | disposition home or self-care (01) ==
LOC: RAD 06:47
PROVIDERS: PCP Family Medicine; Visit Provider Family Medicine
DX: Z87.891 Personal history of nicotine dependence (principal)
CPT/HCPCS: 71271; 76770

== ENCOUNTER 2024-10-01 15:01 | Outpatient (POV) | payer MEDICARE, SELFPAY ==
--- NOTE | 2024-10-01 15:11 | EXP.PAIN.SOA ---
[facility] Disclaimer: The information contained in this section may have been updated after the patient was seen, as this information can be updated by other users. Medical History Arthritis Hypertension Family History Other No significant family history Social History Smoking Status: Never smoker second hand exposure: No alcohol intake: never substance use type: denies use current occupational status: other Travel in the last 8 weeks: None household members: spouse housing: house current occupational exposures/hazards: No caffeine: No PM Subjective & Objective Subjective Subjective:: Patient is a pleasant 74-year-old male who presents today for worsening pain in his right shoulder. He does write it a 7 out of 10. He denies any new trauma or injury from our last visit. Patient does state it is back to being an aching, throbbing sensation that does interfere with his ability perform activities of daily living such as cooking and cleaning. Patient did have his last intra-articular injection back in November and states that that has continued to provide improvement up until the last month. Patient was very pleased how that went. Patient does state that he is no longer doing the diclofenac and felt like the 2 ibuprofen helped better and that he is not doing the compounded cream either. He denies any other issues other than just some stiffness more so in his hand along the right side more related to arthritis. His Alvaro has been reviewed and is appropriate. Review of Systems: General: No recent weight changes, no fever, no sleep disturbances Respiratory: No cough, no shortness of air, no recurring pulmonary infections Cardiovascular/peripheral vascular: No chest pain, no palpitations, no edema, no shortness of breath Gastrointestinal: No new onset incontinence, normal bowel movements reported Genitourinary: No new onset incontinence Musculoskeletal: Right shoulder pain Psychiatric: [Normal mood/affect] Neurological: [Denies weakness in extremities], [denies balance issues] Pain at rest (0-10 scale): 7 Objective Objective:: Physical Exam: General: Alert and oriented x3, no acute distress, pleasant and cooperative Lungs: Respirations even and unlabored, symmetrical chest expansion Eyes: PERRL Musculoskeletal: Flexion and extension of right shoulder somewhat guarded secondary to pain, [antalgic gait noted] Neurological: Speech clear, no gross sensory deficit Has patient had previous pain injection?: No Conservative treatment options previously tried: Home exercise plan Length of treatment: Longer than 12 weeks Meds Home Medications and Allergies Home Medications ?Medication ?Instructions ?Recorded ?Confirmed ?Type lisinopril 20 1 tab PO DAILY blood pressure 06/08/21 11/27/23 History mg-hydrochlorothiazide 25 mg tablet diclofenac sodium 75 mg 75 mg PO BID . #60 tabs 08/08/22 11/27/23 Rx tablet,delayed release gabapentin 100 mg capsule 100 mg PO HS Pain 09/10/22 11/27/23 History New Prescriptions to Start Prescriptions: Allergies Allergy/AdvReac Type Severity Reaction Status Date / Time cefaclor ([facility] Allergy Verified 11/12/23 09:58 Assessment and Plan *Assessment and plan (1) Impingement of right shoulder: Status: Acute Category: Medical Code(s): M25.811 - Other specified joint disorders, right shoulder Plan Patient is experiencing worsening pain in his right shoulder with limited range of motion. Patient did have his last right intra-articular shoulder in November 2023 that did provide more than 50% improvement and lasted at least 9 months. I have reviewed over the risk and benefits of repeat injection and he would like to proceed forward with this plan of care. Patient has tried and failed conservative therapy including continued at home stretching exercise for longer than 12 weeks patient will be scheduled for a right shoulder intra-articular injection. This will be done without fluoroscopic guidance or ultrasound. Patient has been instructed to contact the clinic with any concerns before the next appointment. Dr. Prieto has reviewed this note and agrees with this plan of care. This note was dictated using voice recognition software and make contain errors or omissions. All injections are used with Lidocaine, Bupivacaine and Depo Medrol. Occasionally urine drug screen is needed to verify patient's compliance with our office pain contract. This is ordered based off specific treatments related to chronic pain with the potential to abuse certain medications.
[2024-10-01 15:19] VITALS: BP 132/54; PULSE 63; RESP 14; O2SAT 99; BMI 24.3
== END 2024-10-01 23:59 | disposition home or self-care (01) ==
LOC: SC.PAIN 15:03
PROVIDERS: PCP Family Medicine; Visit Provider Nurse Practitioner Family
DX: M25.811 Other specified joint disorders, right shoulder (principal); Z73.89 Other problems related to life management difficulty
CPT/HCPCS: 99212; G0463

== ENCOUNTER 2024-10-27 10:26 | Day surgery (SDC) | payer MEDICARE, SELFPAY ==
[2024-10-27 10:33] VITALS: BP 135/68; PULSE 58; RESP 16; TEMP 37.1; O2SAT 99; BMI 23.6
[2024-10-27 11:04] VITALS: BP 154/82; PULSE 53; RESP 18; O2SAT 99
[2024-10-27] MEDS: methylPREDNISolone ACETATE 80MG/ML VIAL 80 MG (11:04)
[2024-10-27] MEDS: BUPIVACAINE 0.25% 10ML INJ 25 MG IJ (11:04)
[2024-10-27] MEDS: LIDOCAINE 1% 5ML PF VIAL 5 ML (11:04)
[2024-10-27 11:05] VITALS: BP 154/82; PULSE 55; RESP 18; O2SAT 99
--- NOTE | 2024-10-27 11:09 | EXP.PAIN.PRO ---
Procedure Date: 10/27/24 Time: 11:00 Anesthesiologist:: Tony Curran CRNA Complications:: None Pre-procedure Diagnosis:: DJD right shoulder. Chronic right shoulder pain. Post-procedure Diagnosis:: Same. Indications for Procedure:: Patient is a pleasant 74-year-old male who comes our clinic today for right intra-articular shoulder injection of cortisone and local anesthetic. Patient describes right shoulder pain as constant, dull, aching. Patient has 5/5 strength in the right arm. However, limited range of motion secondary to right shoulder pain. I discussed in detail with the patient regarding the injection and potential outcomes. If the intra-articular injection is not effective we will send the patient for orthopedic surgery consultation. Procedure Details:: Procedure Details: Right shoulder intra-articular injection Informed consent was obtained risk and benefits of the procedure were explained to the patient. Patient was taken to the procedure room. The right shoulder was prepped using ChloraPrep. A 25-gauge needle was used posteriorly to inject 10 mL bupivacaine 0.25% and Depo-Medrol 40 mg. Patient tolerated procedure well with no complications. Plan and Disposition:: Patient was discharged without incident.
[2024-10-27 11:13] VITALS: BP 156/77; PULSE 52; RESP 16; O2SAT 98
== END 2024-10-27 11:13 | disposition home or self-care (01) ==
PROVIDERS: PCP Family Medicine; Visit Provider Nurse Anesthetist, Certified Registered
DX: M19.011 Primary osteoarthritis, right shoulder (principal); M25.511 Pain in right shoulder; G89.29 Other chronic pain
CPT/HCPCS: 20610; J1010

== ENCOUNTER 2024-11-11 15:14 | Outpatient (POV) | payer MEDICARE, SELFPAY ==
[2024-11-11 15:24] VITALS: BP 132/61; PULSE 63; RESP 14; O2SAT 97; BMI 25.1
--- NOTE | 2024-11-11 15:41 | EXP.PAIN.SOA ---
[facility] Disclaimer: The information contained in this section may have been updated after the patient was seen, as this information can be updated by other users. Medical History Arthritis Hypertension Family History Other No significant family history Social History Smoking Status: Never smoker second hand exposure: No alcohol intake: never substance use type: denies use current occupational status: other Travel in the last 8 weeks: None household members: spouse housing: house current occupational exposures/hazards: No caffeine: No PM Subjective & Objective Subjective Subjective:: Patient is a pleasant 74-year-old male who presents today for follow-up of intra-articular right shoulder injection on 10/27/2024. Today he rates his pain a 2 out of 10. He does state that he had at least 50% improvement and feels like it is still working. He does however state that he has been doing a little bit more activity outside and that does feel like some days it is worse than others. He has continued to use his compounded cream, ice and anti-inflammatory medication. Patient does feel like sometimes when it is flared up it does feel more muscular. He denies any other changes. His Alvaro has been reviewed and is appropriate. Review of Systems: General: No recent weight changes, no fever, no sleep disturbances Respiratory: No cough, no shortness of air, no recurring pulmonary infections Cardiovascular/peripheral vascular: No chest pain, no palpitations, no edema, no shortness of breath Gastrointestinal: No new onset incontinence, normal bowel movements reported Genitourinary: No new onset incontinence Musculoskeletal: Shoulder pain right side Psychiatric: [Normal mood/affect] Neurological: [Denies weakness in extremities], [denies balance issues] Pain at rest (0-10 scale): 2 Objective Objective:: Physical Exam: General: Alert and oriented x3, no acute distress, pleasant and cooperative Lungs: Respirations even and unlabored, symmetrical chest expansion Eyes: PERRL Musculoskeletal: Flexion and extension of right shoulder somewhat guarded secondary to pain Neurological: Speech clear, no gross sensory deficit Has patient had previous pain injection?: Yes Percent improvement in pain since last injection: 50% Conservative treatment options previously tried: Home exercise plan Length of treatment: Longer than 12 weeks Meds Home Medications and Allergies Home Medications ?Medication ?Instructions ?Recorded ?Confirmed ?Type lisinopril 20 1 tab PO DAILY blood pressure 06/08/21 11/11/24 History mg-hydrochlorothiazide 25 mg tablet diclofenac sodium 75 mg 75 mg PO BID . #60 tabs 08/08/22 11/11/24 Rx tablet,delayed release gabapentin 100 mg capsule 100 mg PO HS Pain 09/10/22 11/11/24 History New Prescriptions to Start Prescriptions: Allergies Allergy/AdvReac Type Severity Reaction Status Date / Time cefaclor (From [facility]) Allergy Verified 11/12/23 09:58 Assessment and Plan *Assessment and plan (1) Impingement of right shoulder: Status: Acute Category: Medical Code(s): M25.811 - Other specified joint disorders, right shoulder Plan Patient has had significant improvement following his right shoulder injection. I did discuss with the patient due to his complaints of muscle pain that I can send a prescription of methocarbamol 500 mg 3 times daily as needed with a 2-week supply. Patient will return to clinic in 7 weeks for reevaluation of symptoms and plan of care. Patient agrees with this. Patient has been instructed to contact the clinic with any concerns before the next appointment. Dr. Prieto has reviewed this note and agrees with this plan of care. This note was dictated using voice recognition software and make contain errors or omissions. All injections are used with Lidocaine, Bupivacaine and Depo Medrol. Occasionally urine drug screen is needed to verify patient's compliance with our office pain contract. This is ordered based off specific treatments related to chronic pain with the potential to abuse certain medications.
== END 2024-11-11 23:59 | disposition home or self-care (01) ==
PROVIDERS: PCP Family Medicine; Visit Provider Nurse Practitioner Family
DX: M25.811 Other specified joint disorders, right shoulder (principal)
CPT/HCPCS: 99212; G0463

== ENCOUNTER 2025-01-04 13:48 | Outpatient (POV) | payer MEDICARE, SELFPAY ==
--- NOTE | 2025-01-04 14:10 | A.OFFVIS_ITS ---
[facility] Disclaimer: The information contained in this section may have been updated after the patient was seen, as this information can be updated by other users. Medical History Arthritis Hypertension Family History Other No significant family history Social History Smoking Status: Never smoker second hand exposure: No alcohol intake: never substance use type: denies use current occupational status: other Travel in the last 8 weeks?: None household members: spouse housing: house current occupational exposures/hazards: No caffeine: No PM Subjective & Objective Subjective Subjective:: Patient is a pleasant 74-year-old male who presents today for worsening right shoulder pain. He does rated a 10 out of 10. Patient states over the last month it has progressively worsened to where it is unbearable. He does state the pain is waking him up in the middle of the night. He states the pain is also affecting his ability perform activities of daily living such as cooking and cleaning. Patient does feel like it is still the same pain he has had in the past however is just progressively worsening. Patient does have concerns of a tear. Patient denies any recent imaging. Patient at our last visit was given a 2-week supply of methocarbamol 500 mg 3 times a day however states he really did not notice significant relief with this however felt like it did make him a little bit more loopy. Patient also states that he feels like the diclofenac is not working as well. His Alvaro has been reviewed and is appropriate. Review of Systems: General: No recent weight changes, no fever, no sleep disturbances Respiratory: No cough, no shortness of air, no recurring pulmonary infections Cardiovascular/peripheral vascular: No chest pain, no palpitations, no edema, no shortness of breath Gastrointestinal: No new onset incontinence, normal bowel movements reported Genitourinary: No new onset incontinence Musculoskeletal: Chronic right shoulder pain Psychiatric: [Normal mood/affect] Neurological: [Denies weakness in extremities], [denies balance issues] Pain at rest (0-10 scale): 10 Objective Objective:: Physical Exam: General: Alert and oriented x3, no acute distress, pleasant and cooperative Lungs: Respirations even and unlabored, symmetrical chest expansion Eyes: PERRL Musculoskeletal: Flexion and extension of right shoulder somewhat guarded secondary to pain, [antalgic gait noted] Neurological: Speech clear, no gross sensory deficit Has patient had previous pain injection?: No Conservative treatment options previously tried: Home exercise plan Length of treatment: Longer than 12 weeks Meds Home Medications and Allergies Home Medications ?Medication ?Instructions ?Recorded ?Confirmed ?Type lisinopril 20 1 tab PO DAILY blood pressur e 06/08/21 11/11/24 History mg-hydrochlorothiazide 25 mg tablet diclofenac sodium 75 mg 75 mg PO BID . #60 tabs /11/2511/11/24 Rx tablet,delayed release gabapentin 100 mg capsule 100 mg PO HS Pain 09/10/22 0 11/11/24 History methocarbamol 500 mg tablet 500 mg PO TID PRN muscle p ain #42 11/11/24 Rx tabs New Prescriptions to Start Prescriptions: Allergies Allergy/AdvReac Type Severity Reaction Status Date / Time cefaclor (From [facility]) Allergy Verified 11/12/23 09:58 Assessment and Plan *Assessment and plan (1) Right shoulder pain: Status: Acute Category: Medical Code(s): M25.511 - Pain in right shoulder (2) Impingement of right shoulder: Status: Acute Category: Medical Code(s): M25.811 - Other specified joint disorders, right shoulder Plan Patient is experiencing worsening pain in his right shoulder with limited range of motion. Patient did have his last right intra-articular shoulder in October 2024 that did provide more than 50% improvement and lasted at least 2 months. I have reviewed over the risk and benefits of repeat injection and he would like to proceed forward with this plan of care. Patient has tried and failed conservative therapy including continued at home stretching exercise for longer than 12 weeks patient will be scheduled for a right shoulder intra-articular injection. This will be done without fluoroscopic guidance or ultrasound. I did also discuss with the patient since he has not had any updated imaging since August 2023 I will put in an order for x-ray and plan to proceed forward with the MRI without contrast of his right shoulder to rule out possible tear. We did already discuss the possibility that if there is significant findings such as a rotator cuff tear that we would send him to orthopedics for referral for possible shoulder scope or other interventions. Patient agrees with this plan of care. Patient has been instructed to contact the clinic with any concerns before the next appointment. Dr. Prieto has reviewed this note and agrees with this plan of care. This note was dictated using voice recognition software and make contain errors or omissions. All injections are used with Lidocaine, Bupivacaine and Depo Medrol. Occasionally urine drug screen is needed to verify patient's compliance with our office pain contract. This is ordered based off specific treatments related to chronic pain with the potential to abuse certain medications.
[2025-01-04 14:24] VITALS: BP 125/64; PULSE 56; RESP 16; O2SAT 97; BMI 24.3
--- NOTE | 2025-01-04 14:26 | XR_ITS ---
FINAL REPORT CLINICAL HISTORY: Worsening right shoulder pain COMPARISON: 08/20/2023 FINDINGS: 3 views of the right shoulder were obtained. There is no fracture or dislocation. The joint space is preserved. Soft tissues are unremarkable. IMPRESSION: No acute osseous abnormality of the right shoulder. Reviewed, Interpreted and Dictated by Kate Leblanc MD Transcribed by Elva Dow Authenticated and [facility]
== END 2025-01-04 23:59 | disposition home or self-care (01) ==
PROVIDERS: PCP Family Medicine; Visit Provider Nurse Practitioner Family
DX: M25.811 Other specified joint disorders, right shoulder (principal)
CPT/HCPCS: 73030; 99212; G0463

== ENCOUNTER 2025-01-19 11:45 | Day surgery (SDC) | payer MEDICARE, SELFPAY ==
[2025-01-19 11:51] VITALS: BP 139/65; PULSE 54; RESP 16; TEMP 36.8; O2SAT 100; BMI 24.3
[2025-01-19 12:03] VITALS: BP 144/71; PULSE 61; RESP 16; O2SAT 98
--- NOTE | 2025-01-19 12:13 | EXP.PAIN.PRO ---
Procedure Date: 01/19/25 Time: 11:50 Anesthesiologist:: Tony Curran CRNA Complications:: None Pre-procedure Diagnosis:: DJD right shoulder. Chronic right shoulder pain. Post-procedure Diagnosis:: Same. Indications for Procedure:: Patient is a very pleasant 74-year-old male who comes our clinic today for a right intra-articular shoulder injection of cortisone local anesthetic. Patient describes right shoulder pain as constant, dull, aching. He reports limited range of motion due to right shoulder pain. Patient has 5/5 strength in the right arm. He rates his pain 7/10. He reports responding very well to previous intra-articular cortisone injections in the past. Procedure Details:: Procedure Details: Right shoulder intra-articular injection Informed consent was obtained risk and benefits of the procedure were explained to the patient. Patient was taken to the procedure room. The right shoulder was prepped using ChloraPrep. A 25-gauge needle was used posteriorly to inject 10 mL bupivacaine 0.25% and Depo-Medrol 40 mg. Patient tolerated procedure well with no complications. Plan and Disposition:: Patient was discharged without incident.
[2025-01-19] MEDS: LIDOCAINE 1% 5ML PF VIAL 5 ML (12:39)
[2025-01-19] MEDS: DEXAMETHASONE 10MG/ML 1ML VIAL 10 MG (12:39)
[2025-01-19] MEDS: BUPIVACAINE 0.25% 10ML INJ 25 MG IJ (12:39)
[2025-01-19 12:41] VITALS: BP 139/65; PULSE 54; RESP 18; O2SAT 100
[2025-01-19 12:46] VITALS: BP 139/65; PULSE 54; RESP 18; O2SAT 100
== END 2025-01-19 12:03 | disposition home or self-care (01) ==
LOC: SC.PAINP 11:46
PROVIDERS: PCP Family Medicine; Visit Provider Nurse Anesthetist, Certified Registered
DX: M19.011 Primary osteoarthritis, right shoulder (principal); M25.511 Pain in right shoulder; M25.811 Other specified joint disorders, right shoulder; G89.29 Other chronic pain; I10 Essential (primary) hypertension; Z79.899 Other long term (current) drug therapy; Z79.1 Long term (current) use of non-steroidal anti-inflammatories (NSAID); Z88.1 Allergy status to other antibiotic agents
CPT/HCPCS: 20610; J0665; J1100; J2003

== ENCOUNTER 2025-01-21 14:14 | Outpatient (CLI) | payer MEDICARE, SELFPAY ==
--- OUTSIDE RECORDS SUMMARY | 2024-06-09 05:15 | XMS_ITS ---
Author Organization [facility] Address [address] [place] [id number] Care Team Providers Care Feed Mixer Name Role Phone Keiry Dykes Unavailable [phone] Sofia Mejia Unavailable [phone] Allergies Allergen (clinical drug ingredient) Drug/Non Drug Allergy documented on EMR Reaction Allergy Type Onset Date Status cefaclor Cefaclor stomach upset/ SOA/ hives Drug Allergy Active Results Component Value Reference Range Notes P-Comprehensive Metabolic Pa carlos (CMP) Reviewed date:06/11/2024 08:44:19 AM Interpretation:Normal Performing Lab: Notes/Report: Test performed by [employer] [employer] [address] [place] [address] , [address], [place] [address] Ranulfo Gonzalez MD, Welding Machine Operator Arc CLIA: [id number] Sodium 141 135-145 mmol/L Potassium 4.1 3.5-5.3 mmol/L Chloride 102 97-108 mmol/L CO2 29 22-32 mmol/L Glucose 88 65-99 mg/dL BUN 9 8-23 mg/dL Creatinine 0.78 0.70-1.30 mg/dL Calcium 9.7 8.6-10.4 mg/dL eGFR by Creatinine 95 >59 mL/min/1.73m2 Protein 7.0 6.0-8.3 g/dL Albumin 4.6 3.5-5.3 g/dL Alkaline Phosphatase 65 40-129 IU/L ALT (SGPT) 16 <5-55 IU/L AST (SGOT) 22 <5-46 IU/L Bilirubin, Total 0.9 <0.2-1.2 mg/dL A/G Ratio 1.9 1.1-2.5 P-Lipid Panel Reviewed date:06/11/2024 08:44:19 AM Interpretation:Normal Performing Lab: Notes/Report: Test performed by [facility] [address], [place] [address] Ranulfo Gonzalez MD, Welding Machine Operator Arc CLIA: [id number] Cholesterol 167 <200 mg/dL Triglycerides 77 <150 mg/dL HDL Cholesterol 44 >39 mg/dL Cholesterol / HDL Ratio 3.80 0.00-4.99 Ratio Non-HDL Cholesterol 123 <130 mg/dL LDL Cholesterol (Calculation) 108 <130 mg/dL LDL Cholesterol Levels* Less than 100 mg/dL Optimal 100 to 129 mg/dL Near Optimal/ Above Optimal 130 to 159 mg/dL Borderline High 160 to 189 mg/dL High 190 mg/dL and above Very High * Categories as recommended by the 2004 ATPIII guidelines LDL/HDL Ratio 2.4 <3.3 Ratio LDL Cholesterol Patient History Test Date: 06/09/2024 LDL Results: 108 Units: mg/dL % Change: - P-PSA Reviewed date:06/11/2024 08:44:19 AM Interpretation:Normal Performing Lab: Notes/Report: Test performed by [employer] [address] [facility] , [address], [place] [address] Ranulfo Gonzalez MD, Welding Machine Operator Arc CLIA: [id number] PSA 0.25 <4.00 ng/mL Please note this is an ultrasensitive PSA assay with a lower limit of detection of 0.014 ng/mL. This test is performed by the [employer] ECLIA methodology. Values obtained with different assay methods or kits cannot be directly compared. Ultrasound : Aorta Reviewed date:06/29/2024 07:19:16 PM Interpretation:negative for AAA Performing Lab: Notes/Report: negative for AAA CT SCAN : CHEST, LUNG CANCER SCREENING LOW DOSE Reviewed date:06/29/2024 07:19:00 PM Interpretation:nodule, recommend annual f/u Performing Lab: Notes/Report: nodule, recommend annual f/u REASON FOR VISIT AWV check up Medications Medication SIG (Take, Route, Frequency, Duration) Notes Start Date End Date Status Famciclovir 500 MG 3 tablet Orally prn with onset of cold sore 06/04/2023 Not-Taki ng Meclizine HCl 25 MG 1 tab(s) orally 3 ti mes a day, prn 02/09/2022 Not-Taking Omeprazole 40 MG 1 capsule 30 minutes before morning meal Orally Once a day for 90 days Not-Taking Gabapentin 100 MG 1 cap(s) orally bedtime Not-Taking Diclofenac Sodium 75 MG 1 tablet as need ed Orally Twice a day prn 06/04/2023 Not-Takin g Albuterol Sulfate HFA 108 (90 Base) MCG/ACT 2 puff(s) inhaled four times a day as needed 08/19/2020 Active Sildenafil Citrate 20 MG 1-2 tab(s) oral ly as directed 09/28/2019 Active Lisinopril-hydroCHLOROthi azide 20-25 MG 1 tab(s) orally once a day for 90 days Active Loratadine 10 MG 1 tab(s) orally once a day OTC Active Immunizations Vaccine Route Administration Date Status Comme nts Fluzone High Dose (65yr and older) IM Intramuscular 06/09/2024 Administered Prevnar (PCV20) IM Intramuscular 06/09/2024 Administered Vital Signs Blood pressure systolic 120 mm Hg 06/09/20 24 Blood pressure diastolic 70 mm Hg 024 Heart Rate 50 /min 06/09/2024 Height 69.25 in 06/09/2024 Weight 160 lbs 06/09/2024 BMI 23.46 kg/m2 06/09/2024 Encounters Encounter Location Date Provider Diagnosis [place] [address] [facility] [address] [place] [id number] 06/09/2024 Sofia Mejia Adult general medica l examination Z00.00 ; Seasonal allergies J30.2 ; Hypertension, unspecified type I10 ; Essential hypertension I10 ; Dyslipidemia E78.5 ; Screening for prostate cancer Z12.5 ; Personal history of tobacco use Z87.891 ; Male erectile disorder N52.9 ; Prostate cancer C61 and BMI 23.0-23.9, adult Z68.23 Assessments Encounter Date Diagnosis (ICD Code) Assessment Notes Treatment Notes Treatment Clinical Notes Section Notes 06/09/2024 Adult general medical examination (ICD-10 - Z00.00) Patient instructed to return to office Annually for Annual Wellness Visits to include annual screenings of Pain assessment, Functional Ability assessment, Cognitive Ability assessment, Fall Risk assessment, Depression screening and Bladder control screening. 06/09/2024 Seasonal allergies (ICD-10 - J30.2) 06/09/2024 Hypertension, unspecified type (ICD-10 - I10) 06/09/2024 Essential hypertension (ICD-10 - I10) 06/09/2024 Dyslipidemia (ICD-10 - E78.5) 06/09/2024 Screening for prostate cancer (ICD-10 - Z12.5) 06/09/2024 Personal history of tobacco use (ICD-10 - Z87.891) 06/09/2024 Male erectile disorder (ICD-10 - N52.9) 06/09/2024 Prostate cancer (ICD-10 - C61) 06/09/2024 BMI 23.0-23.9, adult (ICD-10 - Z68.23) Plan Of Treatment Medication Medication Name Sig Start Date Stop Date Notes Albuterol Sulfate HFA 108 (9 0 Base) MCG/ACT 2 puff(s) inhaled four times a day as needed 08/19/2020 Treatment Notes Assessment Notes Adult general medical examination Patien t instructed to return to office Annually for Annual Wellness Visits to include annual screenings of Pain assessment, Functional Ability assessment, Cognitive Ability assessment, Fall Risk assessment, Depression screening and Bladder control screening. Next Appt Details Follow Up: 6 Months, Reason: Provider Name:Sofia Carter Chester et, 02/02/2025 09:15:00 AM, [address], [address], [place], [phone], Progress Notes * ALEJANDRA TATEDOB: 2 (74 yo M)Acc No.[id number]:06/09/2024 Annual Wellness Visit Patient: ALEJANDRA HI Provider: Sofia Mejia M.D. :1950 A ge:74 Y S ex:Male Date:06/09/2024 Address:[facility] [address], [place], [id number] Subjective: * Chief Complaints: * 1 . AWV check up. * HPI: H PI: Patient is here today for a scheduled check up, a Medicare Annual Wellness Visit. Pt is fasting today. Pt sts that he needs a refill of Albuterol inhaler. Pt would like to get his flu shot today. G astroenterology: Since his last office visit, he has undergone GI workup with Dr. Sotelo. He had a normal EGD and colonoscopy. He has since discontinued all GI medication. He denies abdominal pain. His weight has stabilized around 160 pounds. He states his appetite is good and his bowels are moving normally. R heumatology: He complains of more joint pain and stiffness related to his arthritis. Because of his GI issues, he had also discontinued his diclofenac. He is using acetaminophen as needed. His uses a compounded cream from Dr. Prieto and he wonders about a prescription but he does not know the ingredients. * ROS: D ERMATOLOGY: no R kaitlynn. n o H rob. G ASTROENTEROLOGY: no N ausea. n o V omiting. n o D iarrhea.? U ROLOGY: no D ifficulty urinating. n o B lood in urine. * Medical History: H ypertension, tDap 08/2018, Prevnar, Pneumovax, Prostate cancer - Cyberknife per Dr. Luna. * Surgical History: C -scope/ Gonzalez/ one small adenoma 06/2020, Cyberknife/ Dr. Luna - [facility] 2021. * Hospitalization/Major Diagno stic Procedure: [facility] - Ear Infection 10/2015. * Family History: F ather: 87 yrs, diagnosed with Diabetes, Stroke. M other: 74 yrs, diagnosed with Cancer. S iblings: alive. C hildren: alive. 4 brother(s) , 1 sister(s) - healthy. 1 son(s) , 2 daughter(s) - healthy. . * Social History: C URRENT TOBACCO USE S moking Status: P atient does NOT smoke, T ype of smokeless tobacco used: d ip. * Medications: T aking Loratadine 10 MG Tablet 1 tab(s) orally once a day , Notes to Pharmacist: OTC, Taking Sildenafil Citrate 20 MG Tablet 1-2 tab(s) orally as directed , Taking Lisinopril-hydroCHLOROthiazide 20-25 MG Tablet 1 tab(s) orally once a day , Taking Albuterol Sulfate HFA 108 (90 Base) MCG/ACT Aerosol Solution 2 puff(s) inhaled four times a day as needed , Not-Taking Meclizine HCl 25 MG Tablet 1 tab(s) orally 3 times a day, prn , Not-Taking Famciclovir 500 MG Tablet 3 tablet Orally prn with onset of cold sore , Not-Taking Gabapentin 100 MG Capsule 1 cap(s) orally bedtime , Not- Taking Diclofenac Sodium 75 MG Tablet Delayed Release 1 tablet as needed Orally Twice a day prn , Not-Taking Omeprazole 40 MG Capsule Delayed Release 1 capsule 30 minutes before morning meal Orally Once a day , Medication List reviewed and reconciled with the patient * Allergies: C efaclor: stomach upset/ SOA/ hives. Objective: * Vitals: W t:160, Temp:98.0, BP:120/70, HR:50, Nurse:STEVEN, Ht: 69.25, BMI:23.46. * Examination: C ardiology: General Appearance: p leasant, NAD. HEENT: u nremarkable. Carotid upstroke: n ormal, no bruits. Heart sounds: R RR, normal S1, S2. Murmur, click , gallop: n one. Lungs: c lear, no rales or wheezes. Abdomen: p ositive BS, soft, nontender. Extremities: n o leg edema. * Physical Examination: G ENERAL: Pain Assessment: P ain level: 5, on a scale of 0-10 (with 10 being extreme pain). F unctional Status Assessment: P atient response to question of how often physical health interferes with daily activities: . Occasionally Able to perform ADLs-including meal preparation, grocery shopping, housework, laundry, taking medications or handling finances. Cognitive Status: alert and oriented. Ambulation Status: Fully ambulatory . F all Risk Assessment: I ndependant in ambulation, adequate lighting in home. Patient has NOT fallen or had trouble walking within the past 12 months. D epression Screening: D toriies depressed mood or anxiety. Describes emotional health as: positive. B ladder Control Screening: varinder hair. Assessment: * Assessment: 1. A dult general medical examination - Z00.00 (Primary) 2 . S easonal allergies - J30.2 3 . H ypertension, unspecified type - I10 4 . E ssential hypertension - I10 5 . D yslipidemia - E78.5 6 . S creening for prostate cancer - Z12.5 7 . P ersonal history of tobacco use - Z87.891 8 . M pankaj erectile disorder - N52.9 9 . P rostate cancer - C61 1 0. B AL 23.0-23.9, adult - Z68.23 Plan: * Treatment: 2. S easonal allergies Refill Albuterol Sulfate HFA Aerosol Solution, 108 (90 Base) MCG/ACT, 2 puff(s), inhaled, four times a day as needed, 1, Refills 3. 3. E ssential hypertension L AB: P-Comprehensive Metabolic Panel (CMP) (Collection Date & Time - 06/09/2024 08:45 AM) N ormal Value Reference Range A /G Ratio 1.9 1.1-2.5 - * A lbumin 4.6 3.5-5.3 - g/dL * A lkaline Phosphatase 65 40-129 - IU/L * A LT (SGPT) 16 <5-55 - IU/L * A ST (SGOT) 22 <5-46 - IU/L * B ilirubin, Total 0.9 <0.2-1.2 - mg/dL * B UN 9 8-23 - mg/dL * C alcium 9.7 8.6-10.4 - mg/dL * C hloride 102 97-108 - mmol/L * C O2 29 22-32 - mmol/L * C reatinine 0.78 0.70-1.30 - mg/dL * G lucose 88 65-99 - mg/dL * P otassium 4.1 3.5-5.3 - mmol/L * S odium 141 135-145 - mmol/L * P rotein 7.0 6.0-8.3 - g/dL * e GFR by Creatinine 95 >59 - mL/min/1.73m2 * Sofia Mejia 06/11/2024 8 :44:09 AM >See phone encounter 4.?Dyslipidemia?LAB: P-Lipid Panel (Collection Date & Time - 06/09/2024 08:45 AM)?Normal* Value Reference Range C holesterol / HDL Ratio 3.80 0.00-4.99 - Ratio * C holesterol 167 <200 - mg/dL * H DL Cholesterol 44 >39 - mg/dL * L DL Cholesterol (Calculation) 108 <130 - mg/d L * L DL/HDL Ratio 2.4 <3.3 - Ratio * N on-HDL Cholesterol 123 <130 - mg/dL * T riglycerides 77 <150 - mg/dL * Sofia Mejia 06/11/2024 8 :44:09 AM >See phone encounter 5.?Screening for prostate cancer?LAB: P-PSA (Collection Date & Time - 06/09/2024 08:45 AM)?Normal* Value Reference Range P SA 0.25 <4.00 - ng/mL * Sofia Mejia 06/11/2024 8 :44:09 AM >See phone encounter 6.?Personal history of tobacco use?Imaging: Ultrasound : Aorta (Performed Date - 06/22/2024)?negative for AAA * Yahaira Lam 06/09/2024 10:29 :28 AM > no auth required when secondary is supplemental to MCR; CPT code 33387; faxed to [facility] SebastianNhi rodgers Ann 06/09/2024 11:36:12 AM > appt 06/22/2024@7:30Sofia Mejia 06/29/2024 7:19:10 PM > see TE ?Imaging: CT SCAN : CHEST, LUNG CANCER SCREENING LOW DOSE (Performed Date - 06/22/2024)?nodule, recommend annual f/u* Yahaira Lam 06/09/2024 10:28 :46 AM > no auth required when secondary is supplemental to [facility]; CPT code 35613; faxed to [facility] SebastianNhi rodgers Ann 06/09/2024 11:35:37 AM > appt108/22/2023 @7:00NoSofia beebe 06/29/2024 7:18:51 PM > See phone encounter * Immunizations: Fluzone High Dose (65yr and older) : 0.5 mL (Route: Intramuscular) given by Kalli Thompson on Left Deltoid (Adult general medical examination) Prevnar (PCV20) : 0.5 mL (Route: Intramuscular) given by Kalli Thompson on Right Deltoid (Adult general medical examination) * Procedure Codes: G 0439 ANNUAL WELLNESS VST; PPS SUBSQT VST, G0444 ANNUAL DEPRESSION SCREENING 15 MIN, 1090F PRES/ABSN URINE INCON ASSESS, 3288F FALL RISK ASSESSMENT DOCD, 1170F FXNL STATUS ASSESSED, 1159F MED LIST DOCD IN RCRD, 1003F LEVEL OF ACTIVITY ASSESS, 1036F TOBACCO NON-USER, 3017F COLORECTAL CA SCREEN DOC REV, G8510 NEG SCR Depression PT NOT ELIG F/U/PLN DOC, G8482 FLU IMMUNIZE ORDER/ADMIN, 4040F PNEUMOC IMM ORDER/ADMIN, 3074F SYST BP LT 130 MM HG, 3078F DIAST BP < 80 MM HG * Preventive Medicine: Counseling: E motional health: D iscussed ways to improve socialization. E xercise: P atient advised to start, increase or maintain level of exercise/physical activity. Injury prevention: F all prevention discussed. Discussed need for cane/walker. Potential trip hazards discussed. Immunizations: T etanus u p to date. P neumococcal r ecommended. I nfluenza r ecommended seasonally. Screening / Special Tests: C olonoscopy C olonoscopy performed by Dr. Sotelo 05/05/2024 was normal. P SA 1 . * Follow Up: 6 Months * Billing Information: * Visit Code: 26464 Office Visit, Est Pt., Level 3. Modifiers: 25 * Procedure Codes: G0439 ANNUAL WELLNESS VST; PPS SUBSQT VST. G0444 ANNUAL DEPRESSION SCREENING 15 MIN. 1090F PRES/ABSN URINE INCON ASSESS. 3288F FALL RISK ASSESSMENT DOCD. 1170F FXNL STATUS ASSESSED. 1159F MED LIST DOCD IN RCRD. 1003F LEVEL OF ACTIVITY ASSESS. 1036F TOBACCO NON-USER. 3017F COLORECTAL CA SCREEN DOC REV. G8510 NEG SCR Depression PT NOT ELIG F/U/PLN DOC. G8482 FLU IMMUNIZE ORDER/ADMIN. 4040F PNEUMOC IMM ORDER/ADMIN. 3074F SYST BP LT 130 MM HG. 3078F DIAST BP < 80 MM HG. * Electronic signature of Sofia Mejia MD on 01/21/2025 at 02:26 PM EDT Sign off status: Pending * Provider: Sofia Mejia M.D. Date: 08/09/2023 Generated for Yuriy recinos/Zeke/eTsimónsmitting on: 0 01/21/2025 02:26 PM EDT History and Physical Notes * HPI (History of Present Illness) Category Sub-Category Detail Notes Category Not es HPI [facility], a Medicare Annual Wellness Visit. Pt is fasting today. Pt sts that he needs a refill of Albuterol inhaler. Pt would like to get his flu shot today Physical Examination Category Sub-Category Detail Notes Section Note s GENERAL Pain Assessment: Pain level: 5, on a scale of 0-10 (with 10 being extreme pain) Functional Status Assessment: Patient response to question of how often physical health interferes with daily activities: . Occasionally Able to perform ADLs-including meal preparation, grocery shopping, housework, laundry, taking medications or handling finances. Cognitive Status: alert and oriented. Ambulation Status: Fully ambulatory Fall Risk Assessment: Independant in amb ulation, adequate lighting in home. Patient has NOT fallen or had trouble walking within the past 12 months Depression Screening: Denies depressed m ood or anxiety. Describes emotional health as: positive Bladder Control Screening: small problem s Examination Category Sub-Category Detail Notes Category Not es Cardiology Lungs: clear, no rales or wheezes HEENT: unremarkable Heart sounds: RRR, normal S1, S2 Abdomen: positive BS, soft, n ontender Carotid upstroke: normal, no bruits Extremities: no leg edema Murmur, click , gallop: none General Appearance: pleasant, NAD
--- OUTSIDE RECORDS SUMMARY | 2024-07-17 07:45 | XMS_ITS ---
Author Organization [facility] Address [address] [facility] [address] [place] [id number] Care Team Providers Care Farm Supervisor Name Role Phone Keiry Dykes Unavailable [phone] Jeffery Olivia Unavailable [phone] Allergies Allergen (clinical drug ingredient) Drug/Non Drug Allergy documented on EMR Reaction Allergy Type Onset Date Status cefaclor Cefaclor stomach upset/ SOA/ hives Drug Allergy Active Results Component Value Reference Range Notes CBC Fingerstick (in house) Reviewed date:07/17/2024 04:22:43 PM Interpretation: Performing Lab: Notes/Report: wbc 6.2 3.5 - 10 lym 19.7% 15 - 50 mid 5.8% 2 - 15 gran 74.5% 35 - 80 rbc 5.34 3.5 - 5.5 hgb 15.5 11.5 - 16.5 hct 46.7 35 - 55 mcv 87.3 75 - 100 mch 29.1 25 - 35 mchc 33.3 31 - 38 plat 138 100 - 400 REASON FOR VISIT Upper Respiratory Issues Medications Medication SIG (Take, Route, Frequency, Duration) Notes Start Date End Date Status Meclizine HCl 25 MG 1 tab(s) orally 3 ti mes a day, prn 02/09/2022 Not-Taking Famciclovir 500 MG 3 tablet Orally prn with onset of cold sore 06/04/2023 Not-Katina ng Gabapentin 100 MG 1 cap(s) orally bedtime Not-Taking Diclofenac Sodium 75 MG 1 tablet as need ed Orally Twice a day prn 06/04/2023 Not-Kassy g Omeprazole 40 MG 1 capsule 30 minutes before morning meal Orally Once a day for 90 days Not-Taking Lisinopril-hydroCHLOROthi azide 20-25 MG 1 tab(s) orally once a day for 90 days Active Albuterol Sulfate HFA 108 (90 Base) MCG/ACT 2 puff(s) inhaled four times a day as needed 08/19/2020 Active Loratadine 10 MG 1 tab(s) orally once a day OTC Active Promethazine-DM 6.25-15 MG/5ML 5 ml as needed Orally every 6 hrs 07/17/2024 Active Sildenafil Citrate 20 MG 1-2 tab(s) oral ly as directed 09/28/2019 Active Vital Signs Blood pressure systolic 122 mm Hg 07/17/20 Blood pressure diastolic 70 mm Hg 024 Heart Rate 68 /min 07/17/2024 Height 69.25 in 07/17/2024 Weight 162.2 lbs 07/17/2024 BMI 23.78 kg/m2 07/17/2024 Encounters Encounter Location Date Provider Diagnosis [facility] [address] [facility] [facility] [address] [place], [place] [id number] 07/17/2024 Jeffery Olivia Acute URI J06.9 Assessments Encounter Date Diagnosis (ICD Code) Assessment Notes Treatment Notes Treatment Clinical Notes Section Notes 07/17/2024 Acute URI (ICD-10 - J06.9) Plan Of Treatment Medication Medication Name Sig Start Date Stop Date Notes Promethazine-DM 6.25-15 MG/5ML 5 ml as n eeded Orally every 6 hrs 07/17/2024 Next Appt Details Follow Up: prn, Reason: Provider Name:Sofia De Leon, 02/02/2025 09:15:00 AM, [address] [facility], [address], [place], [id number], Progress Notes * ALEJANDRA LOYDDOB: (74 yo M)Acc No.[id number]:07/17/2024 Progress Notes Patient: ALEJANDRA HI Provider: Sarah Olivia M.D. :1950 A ge:74 Y S ex:Male Date:07/17/2024 Address:[facility] [address], [place], [id number] Subjective: * Chief Complaints: * 1 . Upper Respiratory Issues. * HPI: E NT/respiratory: 74 year old male presents with c/o cough P t complains of dry without any sputum production cough for about a week. Associated with sore throat, body aches, fatigue and congestion . c/o ear pain. Denies : Fever. * ROS: D ERMATOLOGY: no R kaitlynn. n o H rob. G ASTROENTEROLOGY: no N ausea. n o V omiting. U ROLOGY: no D ifficulty urinating. n o B lood in urine. * Medical History: H ypertension, tDap 08/2018, Prevnar, Pneumovax, Prostate cancer - Cyberknife per Dr. Luna. * Surgical History: C -scope/ Gonzalez/ one small adenoma 06/2020, Cyberknife/ Dr. Luna - [facility] 2021. * Hospitalization/Major Diagno stic Procedure: [facility] - Ear Infection 10/2015. * Family History: F ather: 87 yrs, diagnosed with Diabetes, Stroke. M other: 74 yrs, diagnosed with Cancer. S ibmatt: alive. C bonny: alive. 4 brother(s) , 1 sister(s) - [...] upset/ SOA/ hives. Objective: * Vitals: W t:162.2, Temp:98.5, BP:122/70, HR:68, O2 Sat:99% on RA, Nurse:marcie, Ht: 69.25, BMI:23.78. * Examination: E NT/Respiratory: General Appearance: N AD. Eyes: P ERRLA, sclera clear. Ears: a uditory canals normal bilaterally, TM's WNL. Oral cavity : n o erythema or exudate seen on pharynx. Neck : n o cervical lymphadenopathy. Heart : R RR, normal S1 S2. Lungs: c lear to auscultation bilaterally. Assessment: * Assessment: 1. Trevor boogie URI - J06.9 (Primary) Plan: * Treatment: Value Reference Range w bc 6.2 3.5 - 10 * l ym 19.7% 15 - 50 * m id 5.8% 2 - 15 * g ran 74.5% 35 - 80 * r bc 5.34 3.5 - 5.5 * h gb 15.5 11.5 - 16.5 * h ct 46.7 35 - 55 * m cv 87.3 75 - 100 * m ch 29.1 25 - 35 * m chc 33.3 31 - 38 * p lat 138 100 - 400 * Janessa Gotti 07/17/2024 12:04: 39 PM > , Provider reviewed results while patient in office.Jeffery Olivia 07/17/2024 4:22:37 PM > * Procedure Codes: G 2211 Complex e/[place], [address] [place], [address] CAPILLARY BLOOD DRAW, 74[address] CBC WITH AUTO DIFF * Follow Up: p rn * Billing Information: * Visit Code: 49471 Office Visit, Est Pt., Level 3. * Procedure Codes: G2211 Complex e/[place]. [address] [place]. [address] CAPILLARY BLOOD DRAW. 24932 CBC WITH AUTO DIFF. * Electronic signature of Yolanda Olivia MD on 01/21/2025 at 02:26 PM EDT Sign off status: Pending * Provider: Sarah Olivia M.D. Date: 09/17/2023 Generated for Yuriy recinos/Zeke/eTransmitting on: 0 01/21/2025 02:26 PM EDT History and Physical Notes * HPI (History of Present Illness) Category Sub-Category Detail Notes Category Not es ENT/respiratory ear pain cough Pt complains of dry without any sputum production cough for about a week. Associated with sore throat, body aches, fatigue and congestion Fever Examination Category Sub-Category Detail Notes Category Not es ENT/Respiratory Oral cavity : no erythema or exudate s een on pharynx Ears: auditory canals norm al bilaterally, TM's WNL Neck : no cervical lymphade nopathy Heart : RRR, normal S1 S2 Lungs: clear to auscultatio n bilaterally General Appearance: NAD Eyes: PERRLA, sclera clear
--- NOTE | 2025-01-21 14:17 | MR_ITS ---
FINAL REPORT CLINICAL HISTORY: RIGHT SHOULDER PAIN lrom COMPARISON: None FINDINGS: Multi planar MR imaging of the right shoulder was performed. Mild abnormal signal is present at the insertion of the supraspinatus tendon, that may represent a partial insertional tear. There is no abnormal fluid in the subacromial/subdeltoid bursa. There is a linear defect in the anterior labrum, likely an anterior labral tear. The biceps tendon appears intact. The acromioclavicular joint appears intact. There are multiple osteochondral lesions in the superior humeral head and glenoid process, likely secondary to moderate changes of osteoarthritis. IMPRESSION: Probable partial insertional tear of the supraspinatus tendon. Linear defect in the anterior labrum, likely an anterior labral tear. Moderate changes of osteoarthritis as described. Reviewed, Interpreted and Dictated by Kodak Sanchez MD Transcribed by Elva Dow Authenticated and . [facility]
--- OUTSIDE RECORDS SUMMARY | 2025-01-21 14:27 | XMS_ITS | Patient Health Record ---
[facility] [address] [place] [id number] Care Team Providers Care Weeder Thinner Name Role Phone Keiry Dykes Unavailable [phone] JackieSofia Unavailable [phone] Corwin Jeffery Unavailable [phone] Allergies Allergen (clinical drug ingredient) Drug/Non Drug Allergy documented on EMR Reaction Allergy Type Onset Date Status Cefaclor stomach upset/ SOA/ hives Drug Allergy Active Results Component Value Reference Range Notes P-Comprehensive Metabolic Pa carlos (CMP) Reviewed date:06/11/2024 08:44:19 AM Interpretation:Normal Performing Lab: Notes/Report: Test performed by [facility] [address] [place] [address] , [address], [place] [address] Ranulfo Gonzalez MD, Color Laboratory Technician CLIA: [id number] Sodium 141 135-145 mmol/L Potassium 4.1 3.5-5.3 [...] Interpretation:Normal Performing Lab: Notes/Report: Test performed by [facility] [address] [place] [address] Johnna Powers, [place] [address] Ranulfo Gonzalez MD, Color Laboratory Technician CLIA: [id number] Cholesterol 167 <200 mg/dL Triglycerides 77 <150 [...] Interpretation:Normal Performing Lab: Notes/Report: Test performed by [facility] [address] [place] [address] , [address], [place] [address] Ranulfo Gonzalez MD, Color Laboratory Technician CLIA: [id number] PSA 0.25 <4.00 ng/mL Please note this [...] Performing Lab: Notes/Report: nodule, recommend annual f/u CBC Fingerstick (in house) Reviewed date:07/17/2024 04:22:43 [...] - 38 plat 138 100 - 400 Ultrasound : Right Upper Kevin jose Reviewed date:01/29/2024 01:57:06 PM Interpretation: Performing Lab: Notes/Report: colonoscopy Reviewed date:06/04/2024 04:49:14 PM Interpretation:Dr. Sotelo- gabino Performing Lab: Notes/Report: Dr. Sotelo- normal result: Dr. Sotelo- gabino HIDA SCAN Reviewed date:02/14/2024 08:30:13 AM Interpretation:Normal Performing Lab: Notes/Report: Normal Reason For Referral No Information Medications Medication SIG (Take, Route, Frequency, Duration) Notes Start Date End Date Status Albuterol Sulfate HFA 108 (90 Base) MCG/ACT 2 puff(s) inhaled four times a day as needed 08/19/2020 Active Loratadine 10 MG 1 tab(s) orally once a day OTC Active Promethazine-DM 6.25-15 MG/5ML 5 ml as needed Orally every 6 hrs 07/17/2024 Active Lisinopril-hydroCHLOROthi azide 20-25 MG 1 tab(s) orally once a day for 30 days Active Diclofenac Sodium 75 MG Take 1 tablet by mouth twice daily as needed for 30 Active Meclizine HCl 25 MG 1 tab(s) orally 3 ti mes a day, prn 02/09/2022 Not-Taking Famciclovir 500 MG 3 tablet Orally prn with onset of cold sore 06/04/2023 Not-Taki ng Gabapentin 100 MG 1 cap(s) orally bedtime Not-Taking Sildenafil Citrate 20 MG 1-2 tab(s) oral ly as directed Active Omeprazole 40 MG 1 capsule 30 minutes before morning meal Orally Once a day for 90 days Not-Taking Immunizations Vaccine Route Administration Date Status Comme nts Fluzone High Dose (65yr and older) IM Intramuscular 05/17/2020 Administered Fluzone High Dose (65yr and older) IM Intramuscular 05/23/2021 Administered Fluzone High Dose (65yr and older) IM Intramuscular 05/29/2022 Administered Fluzone High Dose (65yr and older) IM Intramuscular 06/04/2023 Administered Fluzone High Dose (65yr and older) IM Intramuscular 06/09/2024 Administered PNEUMOVAX 23 VACCINE IM Intramuscular 05/17/2020 Administered Prevnar (PCV13) Unknown 03/27/2017 Administered reporte d by patient Prevnar (PCV20) IM Intramuscular 06/09/2024 Administered Tetanus-DT Unknown 08/31/2018 Administered Problems Problem Type SNOMED Code ICD Code Onset Dates Problem Status W/U Status Risk Notes Problem 30920093 Essential hypertension (I10) Active confirmed Problem 700145523 Seasonal allergies (J30.2) Active confirmed Problem Primary generalised osteoarthritis (365248726) Primary 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) Active confirmed Problem 794903249 Male erectile disorder (N52.9) Active confirmed Problem Malignant tumor of prostate (341543096) Prostate cancer (C61) Active confirmed Problem [id number] Calcaneal spur o f left foot (M77.32) Active confirmed Problem 617768044 Osteoarthritis o f spine with radiculopathy, cervical region (M47.22) Active confirmed Problem 390524407 Dyslipidemia (E78.5) Active confirmed Problem 45184696 Post concussion syndrome (F07.81) Active confirmed Problem Essential hypertension (16065802) Hypertension, unspecified type (I10) Active confirmed Vital Signs Heart Rate 68 /min 07/17/2024 Blood pressure diastolic 70 mm Hg 07/17/2024 Height 69.25 in 07/17/2024 Blood pressure systolic 122 mm Hg 07/17/2024 Weight 162.2 lbs 07/17/2024 BMI 23.78 kg/m2 07/17/2024 Encounters Encounter Location Date Provider Diagnosis [facility] [address] [facility] [address] [place], [place] [id number] 06/09/2024 R Raul Mejia Adult general medica l examination Z00.00 ; Seasonal allergies J30.2 ; Hypertension, unspecified type I10 ; Essential hypertension I10 ; Dyslipidemia E78.5 ; Screening for prostate cancer Z12.5 ; Personal history of tobacco use Z87.891 ; Male erectile disorder N52.9 ; Prostate cancer C61 and BMI 23.0-23.9, adult Z68.23 [facility] [address] [facility] [address] [place], [place] [id number] 07/17/2024 Jeffery Plymouth Acute URI J06.9 [facility] [address] [place], [place] [id number] 01/29/2024 Keiry Dykes Abdominal pain R10.9 ; Nausea R11.0 and Weight loss R63.4 [facility] [address] [facility] [address] [place], [place] [id number] 02/14/2024 Keiry Pateldy [facility] [address] [facility] [address] [place], [place] [id number] 03/16/2024 Keiry Jania [facility] [address] [facility] [address] [place], [place] [id number] 06/11/2024 R Raul Mejia [facility] [address] [place], [place] [id number] 06/29/2024 R Raul Mejia [facility] [address] [facility] [address] [place], [place] [id number] 01/20/2025 Keiry Dykes Assessments Encounter Date Diagnosis (ICD Code) Assessment Notes Treatment Notes Treatment Clinical Notes Section Notes 01/29/2024 Abdominal pain (ICD-10 - R10.9) 06/09/2024 Seasonal allergies (ICD-10 - J30.2) 01/29/2024 Nausea (ICD-10 - R11.0) 06/09/2024 Adult general medical examination (ICD-10 - Z00.00) Patient instructed to return to office Annually for Annual Wellness Visits to include annual screenings of Pain assessment, Functional Ability assessment, Cognitive Ability assessment, Fall Risk assessment, Depression screening and Bladder control screening. 07/17/2024 Acute URI (ICD-10 - J06.9) 06/09/2024 Hypertension, unspecified type (ICD-10 - I10) 01/29/2024 Weight loss (ICD-10 - R63.4) 06/09/2024 Essential hypertension (ICD-10 - I10) 06/09/2024 Dyslipidemia (ICD-10 - E78.5) 06/09/2024 Screening for prostate cancer (ICD-10 - Z12.5) 06/09/2024 Personal history of tobacco use (ICD-10 - Z87.891) 06/09/2024 Male erectile disorder (ICD-10 - N52.9) 06/09/2024 Prostate cancer (ICD-10 - C61) 06/09/2024 BMI 23.0-23.9, adult (ICD-10 - Z68.23) Plan Of Treatment Pending Test Test Name Order Date LC-Lyme IgG/IgM Ab 07/07/2021 Next Appt Details Provider Name:Sofia De Leon, 02/02/2025 09:15:00 AM, [address], [address], [place], [place], [id number], Insurance Providers Payer Name Payer Address Payer Phone Subscriber Number Group Number Insured Name Patient Relationship to Insured Coverage Start Date Coverage End Date MEDICARE PART B [address] [address] [place] [id number] [phone] [id number] ALEJANDRA LOYD Self - patient is the insured [facility] [address] [address] [place] [address] [id number] ALEJANDRA LOYD Self - patient is the insured Medications Administered Medication Instructions Date of Administration Dosage Notes Depo- Medrol 40 mg/ml 12/31/2023 1.5 mL Dexamethasone 11/04/2015 1 mL Dexamethasone 11/25/2015 1 mL Dexamethasone 10/29/2017 1 mL Dexamethasone 11/29/2020 1 mL Dexamethasone 07/15/2023 1 mL Medical (General) History Medical History History ICD Code hypertension tDap 08/2018 Prevnar Pneumovax Prostate cancer - Cyberknife per Dr. Catherine alvarez Surgical History Surgery Date(Month/Year) C-scope/ Gonzalez/ one small adenoma 06/06 020 Cyberknife/ Dr. Luna - [facility] for Pro[facility] Cancer 2021 Hospitalization History Reason Date(Month/Year) [facility] - Ear Infection 10/2015
== END 2025-01-21 23:59 | disposition home or self-care (01) ==
LOC: RAD 14:15
PROVIDERS: PCP Family Medicine; Visit Provider Nurse Practitioner Family
DX: M19.011 Primary osteoarthritis, right shoulder (principal); R93.6 Abnormal findings on diagnostic imaging of limbs
CPT/HCPCS: 73221

== ENCOUNTER 2025-02-10 10:39 | Outpatient (POV) | payer MEDICARE, SELFPAY ==
--- OUTSIDE RECORDS SUMMARY | 2024-06-09 05:15 | XMS_ITS ---
Author Organization [facility] Address [address] [place] [phone] Care Team Providers Care Worm Packer Name Role Phone Keiry Dykes Unavailable [phone] Sofia Mejia Unavailable [phone] Allergies Allergen (clinical drug ingredient) Drug/Non Drug Allergy documented on EMR Reaction Allergy Type Onset Date Status cefaclor Cefaclor stomach upset/ SOA/ hives Drug Allergy Active Results Component Value Reference Range Notes P-Comprehensive Metabolic Pa carlos (CMP) Reviewed date:06/11/2024 08:44:19 AM Interpretation:Normal Performing Lab: Notes/Report: Test performed by [facility], [email or web address] [address] [place] [address] , [address], [place] [address] Ranulfo Gonzalez MD, Courtroom Deputy CLIA: [id number] Sodium 141 135-145 mmol/L Potassium 4.1 3.5-5.3 [...] Interpretation:Normal Performing Lab: Notes/Report: Test performed by [facility] [address], [place] [address] Ranulfo Gonzalez MD, Courtroom Deputy CLIA: [id number] Cholesterol 167 <200 mg/dL Triglycerides 77 <150 [...] Interpretation:Normal Performing Lab: Notes/Report: Test performed by [facility] [address] [facility] , [address], [place] [address] Ranulfo Gonzalez MD, Courtroom Deputy CLIA: [id number] PSA 0.25 <4.00 ng/mL Please note this [...] minutes before morning meal Orally Once a day; Duration: 90 days Not-Taking Gabapentin 100 MG 1 [...] 20-25 MG 1 tab(s) orally once a day; Duration: 90 days Active Loratadine 10 MG 1 tab(s) orally once a day OTC Active Immunizations Vaccine Route Administration Date Status Comme nts Fluzone High Dose (65yr and older) IM Intramuscular 06/09/2024 Administered Prevnar (PCV20) IM Intramuscular 06/09/2024 Administered Vital Signs Blood pressure systolic 120 mm Hg 06/09/20 24 Blood pressure diastolic 70 mm Hg 11/05/2 024 Heart Rate 50 /min 06/09/2024 Height 69.25 in 06/09/2024 Weight 160 lbs 06/09/2024 BMI 23.46 kg/m2 06/09/2024 Encounters Encounter Location Date Provider Diagnosis [facility] [address] [place] [id number] 06/09/2024 Sofia Mejia Adult general medica l [...] Appt Details Follow Up: 6 Months, Reason: Progress Notes * ALEJANDRA TATEDOB: 2 (74 yo M)Acc No.[id number]:06/09/2024 Annual Wellness Visit Patient: ALEJANDRA HI Provider: Sofia Mejia M.D. :1950 A ge:74 Y S ex:Male Date:06/09/2024 Address:[facility] [address], [place], [id number] Subjective: * Chief Complaints: * 1 . [...] small adenoma 06/2020, Cyberknife/ Dr. Luna - [facility] 2021. * Hospitalization/Major Diagno stic Procedure: [facility] Ear Infection 10/2015. * Family History: F ather: 87 yrs, diagnosed with Diabetes, Stroke. M other: 74 yrs, diagnosed with Cancer. S ibmatt: alive. Cyndi draper: alive. 4 brother(s) , 1 sister(s) - [...] C ardiology: General Appearance: p leasant, NAD. H EENT: u nremarkable. C arotid upstroke: n ormal, no bruits. H eart sounds: R RR, normal S1, S2.?Murmur, click , gallop: n one. L ungs: c lear, no rales or wheezes. A bdomen: positive BS, soft, nontender. E xtremities: n o leg edema. * Physical Examination: [...] rostate cancer - C61 1 0. B PA 23.0-23.9, adult - Z68.23 Plan: * Treatment: [...] secondary is supplemental to MCR; CPT code 75216; faxed to [facility] Nhi Fink 06/09/2024 11:36:12 AM > appt 06/22/2024@7:30TikisorayamykeSofia montalvo 06/29/2024 7:19:10 PM > see TE ?Imaging: CT SCAN : CHEST, LUNG CANCER SCREENING LOW DOSE (Performed Date - 06/22/2024)?nodule, recommend annual f/u* Yahaira Lam 06/09/2024 10:28 :46 AM > no auth required when secondary is supplemental to MCR; CPT code 73045; faxed to [facility] Nhi Fink 06/09/2024 11:35:37 AM > appt108/22/2023 @7:00NomichelleselvinSofia Raul 06/29/2024 7:18:51 PM > See phone encounter [...] . * Follow Up: 6 Months * Images: Billing Information: * Visit Code: 29625 Office Visit, Est Pt., Level 3. Modifiers: [...] Electronic signature of Sofia Mejia MD on 02/10/2025 at 10:44 AM EDT Sign off status: Pending * Provider: Sofia Mejia M.D. Date: 1 08/09/2023 Generated for Yuriy recinos/Zeke/eTransmitting on: 0 02/10/2025 10:44 AM EDT History and Physical Notes * HPI (History of Present Illness) Category Sub-Category Detail Notes Category Not es HPI Patient is here today for a sche duled check up, a Medicare Annual Wellness Visit. [...]
--- OUTSIDE RECORDS SUMMARY | 2024-07-17 07:45 | XMS_ITS ---
Author Organization [facility] Address [address] [facility] [address] [place] [id number] Care Team Providers Care Grey Roll Worker Name Role Phone Keiry Dykes Unavailable [phone] Jeffery Olivia Unavailable [phone] Allergies Allergen (clinical drug ingredient) Drug/Non Drug [...] Once a day; Duration: 90 days Not-Taking Lisinopril-hydroCHLOROthi azide 20-25 MG 1 tab(s) orally once a day; Duration: 90 days Active Albuterol Sulfate HFA 108 [...] 07/17/2024 Encounters Encounter Location Date Provider Diagnosis [facility] [address] [facility] [address] [id number] 07/17/2024 Jeffery Olivia Acute URI J06.9 Assessments Encounter Date Diagnosis (ICD Code) Assessment Notes Treatment Notes Treatment Clinical Notes Section Notes 07/17/2024 Acute URI (ICD-10 - J06.9) Plan Of Treatment Medication Medication Name Sig Start Date Stop Date Notes Promethazine-DM 6.25-15 MG/5ML 5 ml as n eeded Orally every 6 hrs 07/17/2024 Next Appt Details Follow Up: prn, Reason: Progress Notes * ALEJANDRA LOYDDOB: 2 (74 yo M)Acc No.[id number]:07/17/2024 Progress Notes Patient: ALEJANDRA HI Provider: Sarah Olivia M.D. :1950 A ge:74 Y S ex:Male Date:07/17/2024 Address:[address] [place] [address], [id number] Subjective: * Chief Complaints: * 1 . [...] Dr. Luna. * Surgical History: C -scope/ [place]/ one small adenoma 06/2020, Cyberknife/ Dr. Luna - [facility] 2021. * Hospitalization/Major [...] Examination: E NT/Respiratory: General Appearance: N AD. E yes: P ERRLA, sclera clear. E ars: a uditory canals normal bilaterally, TM's WNL. O ral cavity : n o erythema or exudate seen on pharynx. N deni : n o cervical lymphadenopathy. H eart : R RR, normal S1 S2. L ungs: c lear to auscultation bilaterally. Assessment: * Assessment: 1. Trevor chuyita URI - J06.9 (Primary) Plan: * Treatment: [...] G 2211 Complex e/[place], [address] [place], [address] CAPILLARY BLOOD DRAW, [address] CBC WITH AUTO DIFF * Follow Up: p rn * Images: Billing Information: * Visit Code: 97764 Office Visit, Est Pt., Level 3. * Procedure Codes: G2211 Complex e/[place]. [address] [place]. [address] CAPILLARY BLOOD DRAW. 31710 CBC WITH AUTO DIFF. * Electronic signature of Yolanda Olivia MD on 02/10/2025 at 10:44 AM EDT Sign off status: Pending * Provider: Sarah Olivia M.D. Date: 1 09/17/2023 Generated for Yuriy recinos/Zeke/eTsimónsmitting on: 0 02/10/2025 10:44 AM EDT History [...]
--- OUTSIDE RECORDS SUMMARY | 2025-02-02 05:15 | XMS_ITS ---
Author Organization [facility] Address [address] [place] [id number] Care Team Providers Care Logger Driving Horses Name Role Phone PatelPete derasa Unavailable [phone] Sofia Mejia Unavailable [phone] Allergies Allergen (clinical drug ingredient) Drug/Non Drug Allergy documented on EMR Reaction Allergy Type Onset Date Status Cefaclor stomach upset/ SOA/ hives Drug Allergy Active Reason For Referral Reason Requests to see Dr. Dakota Lemus with [facility] Diagnosis 1 Incomplete tear of r ight rotator cuff (M75.111) Referral Organization [facility] Referring Provider First Name Sofia Carter Referring Provider Last Name Jackie [facility]erred Provider Orthopedic Surgery, , Referred Provider Specialty Orthopedic S urgery General Notes Yahaira Lam 2024 08:44:50 AM > sent referral via [facility] website Referral Priority Routine REASON FOR VISIT Lab work check up Medications Medication SIG (Take, Route, Frequency, Duration) Notes Start Date End Date Status Loratadine 10 MG 1 tab(s) orally once a day OTC Active Gabapentin 100 MG 1 cap(s) orally bedtime Not-Taking Omeprazole 40 MG 1 capsule 30 minutes before morning meal Orally Once a day; Duration: 90 days Not-Taking Albuterol Sulfate HFA 108 (90 Base) MCG/ACT 2 puff(s) inhaled four times a day as needed 08/19/2020 Active Promethazine-DM 6.25-15 MG/5ML 5 ml as needed Orally every 6 hrs 07/17/2024 Not-Taking Sildenafil Citrate 20 MG 1-2 tab(s) oral ly as directed Active Diclofenac Sodium 75 MG Take 1 tablet by mouth twice daily as needed; Duration: 30 Active Famciclovir 500 MG 3 tablet Orally prn with onset of cold sore 06/04/2023 Not-Taki ng Lisinopril-hydroCHLOROthi azide 20-25 MG TAKE 1 TABLET EVERY DAY; Duration: 30 Active Meclizine HCl 25 MG 1 tab(s) orally 3 ti mes a day, prn 02/09/2022 Not-Taking Problems Problem Type SNOMED Code ICD Code Onset Dates Problem Status W/U Status Risk Notes Problem Incomplete tear of right rotator cuff (M75.111) Active confirmed Vital Signs Blood pressure systolic 120 mm Hg 02/03/20 25 Blood pressure diastolic 82 mm Hg 025 Heart Rate 47 /min 02/02/2025 Height 69.25 in 02/02/2025 Weight 163.8 lbs 02/02/2025 BMI 24.01 kg/m2 02/02/2025 Encounters Encounter [facility] Date [facility] [address], [place] [id number] 02/02/2025 R Raul Mejia Incomplete tear of right rotator cuff M75.111 ; Prostate cancer C61 ; Dyslipidemia E78.5 ; Hypertension, unspecified type I10 and BMI 24.0-24.9, adult Z68.24 Assessments Encounter Date Diagnosis (ICD Code) Assessment Notes Treatment Notes Treatment Clinical Notes Section Notes 02/02/2025 Incomplete tear of right rotator cuff (ICD-10 - M75.111) 02/02/2025 Prostate cancer (ICD-10 - C61) 02/02/2025 Dyslipidemia (ICD-10 - E78.5) 02/02/2025 Hypertension, unspecified type (ICD-10 - I10) 02/02/2025 BMI 24.0-24.9, adult (ICD-10 - Z68.24) Plan Of Treatment Referrals Referral Date Details 02/02/2025 02/02/2025, Requests to see Dr. Dakota Lemus with [facility], , Orthopedic Surgery Next Appt Details Follow Up: 6 Months, Reason: Progress Notes * ALEJANDRA TATEDOSarah: 2 (74 yo M)Acc No.[id number]:02/02/2025 Progress Notes Patient: ALEJANDRA HI Provider: Sofia Mejia M.D. :1950 A ge:74 Y S ex:Male Date:02/02/2025 Address:[address], [place], [id number] Subjective: * Chief Complaints: * 1 . Lab work check up. * HPI: H PI: 74 year old male presents with c/o Patient is here today for?Pt is here today for a check up with labs. Pt is not fasting. S houlder/Upper arm: He has been having ongoing pain in his right shoulder and has been following with pain management. He has received a couple of steroid injections with no lasting benefit. He had a recent MRI which showed a partial tear of the rotator cuff and labrum. He is requesting orthopedic referral to Dr. Lemus. G astroenterology: GI symptoms have been stable and weight has been stable. * ROS: D ERMATOLOGY: no R kaitlynn. n o H rob. G ASTROENTEROLOGY: no N ausea. n o V omiting. U ROLOGY: no D ifficulty urinating. n o B lood in urine. * Medical History: H ypertension, tDap 08/2018, Prevnar, Pneumovax, Prostate cancer - Cyberknife per Dr. Luna. * Surgical History: C -scope/ Gonzalez/ one small adenoma 06/2020, Cyberknife/ Dr. Luna - [facility] for Prostate Cancer 2021. * Hospitalization/Major Diagno [...] day , Notes to Pharmacist: OTC, Taking Albuterol Sulfate HFA 108 (90 Base) MCG/ACT Aerosol Solution 2 puff(s) inhaled four times a day as needed , Taking Sildenafil Citrate 20 MG Tablet 1-2 tab(s) orally as directed , Taking Diclofenac Sodium 75 MG Tablet Delayed Release Take 1 tablet by mouth twice daily as needed , Taking Lisinopril-hydroCHLOROthiazide 20-25 MG Tablet TAKE 1 TABLET EVERY DAY , Not-Taking Promethazine-DM 6.25-15 MG/5ML Syrup 5 ml as needed Orally every 6 hrs , Not-Taking Meclizine HCl 25 MG Tablet 1 tab(s) orally 3 times a day, prn , Not-Taking Famciclovir 500 MG Tablet 3 tablet Orally prn with onset of cold sore , Not-Taking Gabapentin 100 MG Capsule 1 cap(s) orally bedtime , Not-Taking Omeprazole 40 MG Capsule Delayed Release 1 capsule 30 minutes before morning meal Orally Once a day , Medication List reviewed and reconciled with the patient * Allergies: C efaclor: stomach upset/ SOA/ hives. Objective: * Vitals: W t: 163.8, Temp: 97.9, BP: 120/82, HR: 47, O2 Sat: 99% on RA, Nurse: [facility], Ht: 69.25, BMI:24.01. * Examination: C ardiology: General Appearance: p leasant, NAD. H EENT: u nremarkable. C arotid upstroke: n ormal, no bruits. H eart sounds: R RR, normal S1, S2.?Murmur, click , gallop: n one. L ungs: c lear, no rales or wheezes. A bdomen: positive BS, soft, nontender. E xtremities: n o leg edema. Assessment: * Assessment: 1. I ncomplete tear of right rotator cuff - M75.111 (Primary) 2 . P rostate cancer - C61 3 . D yslipidemia - E78.5 4 . H ypertension, unspecified type - I10 5 . B MN 24.0-24.9, adult - Z68.24 Plan: * Treatment: * Procedure Codes: G 2211 Complex e/m visit add on, G8420 BMI<30 AND >=22 CALC & DOCU, 1036F TOBACCO NON-USER, G8950 PREHTN/HTN BP DOC INDCD F/U DOC, G8752 MOST RECENT SYSTOLIC BP < 140MM HG, G8754 MOST RECENT DIASTOLIC BP < 90MM HG * Follow Up: 6 Months * Images: Billing Information: * Visit Code: 85277 Office Visit, Est Pt., Level 3. * Procedure Codes: G2211 Complex e/m visit add on. G8420 BMI<30 AND >=22 CALC & DOCU. 1036F TOBACCO NON-USER. G8950 PREHTN/HTN BP DOC INDCD F/U DOC. G8752 MOST RECENT SYSTOLIC BP < 140MM HG. G8754 MOST RECENT DIASTOLIC BP < 90MM HG. * Electronic signature of Sofia Mejia MD on 02/10/2025 at 10:44 AM EDT Sign off status: Pending * Provider: Sofia Mejia M.D. Date: 0 02/02/2025 Generated for Yuriy recinos/Zeke/Femiitting on: 02/10/2025 10:44 AM EDT History and Physical Notes * HPI (History of Present Illness) Category Sub-Category Detail Notes Category Not es HPI Patient is here today for Pt is here today for a check up with labs. Pt is not fasting Examination Category Sub-Category Detail Notes Category Not es Cardiology Lungs: clear, no rales or wheezes HEENT: unremarkable Heart sounds: RRR, normal S1, S2 Abdomen: positive BS, soft, n ontender Carotid upstroke: normal, no bruits Extremities: no leg edema Murmur, click , gallop: none General Appearance: pleasant, NAD Consultation Request Notes Referral Date Referring Provider Referred Provider Not es 02/02/2025 Sofia Mejia Orthopedic Surgery, , R equests to see Dr. Dakota Lemus with [facility]
--- OUTSIDE RECORDS SUMMARY | 2025-02-10 10:44 | XMS_ITS ---
Author Organization Unknown Medications Date Medication Dosage DosageUnit StartDate StopDate StopReason Active DoseQuantity DoseUnit Dispense DispenseUnit Refills NdcCode DrugCode PharmacyId IsPrescription MappedMedication Srcstatus 01/20 00:00 :00 Diclofenac Sodium 75 MG Tablet Delayed Release 1 60 Tablet 0 677422 20 150 Start 01/20 00:00 :00 Diclofenac Sodium 75 MG Tablet Delayed Release 0 60 Tablet 0 974197 20 150 Stop 11/27 00:00 :00 Diclofenac Sodium 75 MG Tablet Delayed Release 1 60 Tablet 0 287070 20 150 Start 11/27 00:00 :00 Diclofenac Sodium 75 MG Tablet Delayed Release 0 60 Tablet 0 080254 20 150 Stop 12/31 00:00 :00 Lisinopril- hydroCHLORO thiazide 20-25 MG Tablet 1 30 Tablet 0 52033315 201 Start 12/31 00:00 :00 Lisinopril- hydroCHLORO thiazide 20-25 MG Tablet 0 90 Tablet 1 27431412 201 Stop 07/17 00:00 :00 Meclizine HCl 25 MG Tablet 02/09/2022 00:00:00 0 30 0 7401463 7 661 P Not Taking 06/09 00:00 :00 Meclizine HCl 25 MG Tablet 02/09/2022 00:00:00 0 30 0 8007557 7 661 P Not Taking
--- OUTSIDE RECORDS SUMMARY | 2025-02-10 10:45 | XMS_ITS | Patient Health Record ---
[facility] [address] [place] [id number] Care Team Providers Care Gas Cutter Name Role Phone Keiry Dykes Unavailable [phone] Sofia Mejia Unavailable [phone] Corwin Jeffery Unavailable [phone] Allergies Allergen (clinical drug ingredient) Drug/Non Drug Allergy documented on EMR Reaction Allergy Type Onset Date Status cefaclor Cefaclor stomach upset/ SOA/ hives Drug Allergy Active Results Component Value Reference Range Notes P-Comprehensive Metabolic Pa carlos (CMP) Reviewed date:06/11/2024 08:44:19 AM Interpretation:Normal Performing Lab: Notes/Report: Test performed by [facility], [address] , [address], [place] [address] Ranulfo Gonzalez MD, [employer] CLIA: [id number] Sodium 141 135-145 mmol/L Potassium 4.1 3.5-5.3 [...] Interpretation:Normal Performing Lab: Notes/Report: Test performed by [facility] [address] [place] [address] [address], [place] [address] Ranulfo Gonzalez MD, [employer] CLIA: [id number] Cholesterol 167 <200 mg/dL Triglycerides 77 <150 [...] Interpretation:Normal Performing Lab: Notes/Report: Test performed by [facility] [address] [place] [address] , [address], [place] [address] Ranulfo Gonzalez MD, [employer] CLIA: [id number] PSA 0.25 <4.00 ng/mL Please note this [...] - 38 plat 138 100 - 400 colonoscopy Reviewed date:06/04/2024 04:49:14 PM Interpretation:Dr. Sotelo- gabino Performing Lab: Notes/Report: Case- normal result: Dr. Sotelo- gabino Reason For Referral Reason Requests to see Dr. Dakota Lemus with [facility] Diagnosis 1 Incomplete tear of r ight rotator cuff (M75.111) Referral Organization [facility] Referring Provider First Name Sofia Carter Referring Provider Last Name Jackie Referring Provider Speciality Family [facility] ctice Referred Provider Orthopedic Surgery, , Referred Provider Specialty Orthopedic S urgery General Notes Yahaira Lam 2024 08:44:50 AM > sent referral via [facility] website Referral Priority Routine Medications Medication SIG (Take, Route, Frequency, Duration) Notes Start Date End Date Status Loratadine 10 MG 1 tab(s) orally once a day OTC Active Gabapentin 100 MG 1 cap(s) orally bedtime Not-Taking Omeprazole 40 MG 1 capsule 30 minutes before morning meal Orally Once a day; Duration: 90 days Not-Taking Sildenafil Citrate 20 MG 1-2 tab(s) oral ly as directed Active Diclofenac Sodium 75 MG Take 1 tablet by mouth twice daily as needed; Duration: 30 Active Albuterol Sulfate HFA 108 (90 Base) MCG/ACT 2 puff(s) inhaled four times a day as needed 08/19/2020 Active Promethazine-DM 6.25-15 MG/5ML 5 ml as needed Orally every 6 hrs 07/17/2024 Not-Taking Famciclovir 500 MG 3 tablet Orally prn with onset of cold sore 06/04/2023 Not-Taki ng Lisinopril-hydroCHLOROthi azide 20-25 MG TAKE 1 TABLET EVERY DAY; Duration: 30 Active Meclizine HCl 25 MG 1 tab(s) orally 3 ti mes a day, prn 02/09/2022 Not-Taking Immunizations Vaccine Route Administration Date Status Comme nts Tetanus-DT Unknown 08/31/2018 Administered Prevnar (PCV20) IM Intramuscular 06/09/2024 Administered Prevnar (PCV13) Unknown 03/27/2017 Administered reporte d by patient PNEUMOVAX 23 VACCINE IM Intramuscular 05/17/2020 Administered Fluzone High Dose (65yr and older) IM Intramuscular 05/17/2020 Administered Fluzone High Dose (65yr and older) IM Intramuscular 05/23/2021 Administered Fluzone High Dose (65yr and older) IM Intramuscular 05/29/2022 Administered Fluzone High Dose (65yr and older) IM Intramuscular 06/04/2023 Administered Fluzone High Dose (65yr and older) IM Intramuscular 06/09/2024 Administered Problems Problem Type SNOMED Code ICD Code Onset Dates Problem Status W/U Status Risk Notes Problem Essential hypertension (02524778) Essential hypertension (I10) Active confirmed Problem Seasonal allergy (339694065) Seasonal allergies (J30.2) Active confirmed Problem Primary generalised osteoarthritis (905769155) Primary 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) Active confirmed Problem Male erectile disorder (350984074) Male erectile disorder (N52.9) Active confirmed Problem Malignant tumor of prostate (057630769) Prostate cancer (C61) Active confirmed Problem Calcaneal spur of left foot (449442829743095) Calcaneal spur of left foot (M77.32) Active confirmed Problem Cervical spondylosis without myelopathy (524839508) Osteoarthritis of spine with radiculopathy, cervical region (M47.22) Active confirmed Problem Dyslipidemia (734708347) Dyslipidemia (E78.5) Active confirmed Problem Postconcussion syndrome (94125790) Post concussion syndrome (F07.81) Active confirmed Problem Essential hypertension (25700764) Hypertension, unspecified type (I10) Active confirmed Problem Partial thickness rotator cuff tear (009305691) Incomplete tear of right rotator cuff (M75.111) Active confirmed Vital Signs Heart Rate 47 /min 02/02/2025 Blood pressure diastolic 82 mm Hg 02/02/2025 Height 69.25 in 02/02/2025 Blood pressure systolic 120 mm Hg 02/02/2025 Weight 163.8 lbs 02/02/2025 BMI 24.01 kg/m2 02/02/2025 Encounters Encounter Location Date Provider [facility] [address] [place], [place] [id number] 06/09/2024 Sofia Mejia Adult general medica l examination Z00.00 ; Seasonal allergies J30.2 ; Hypertension, unspecified type I10 ; Essential hypertension I10 ; Dyslipidemia E78.5 ; Screening for prostate cancer Z12.5 ; Personal history of tobacco use Z87.891 ; Male erectile disorder N52.9 ; Prostate cancer C61 and BMI 23.0-23.9, adult Z68.23 [facility] [address] [place], [place] [id number] 07/17/2024 Jeffery Odum Acute URI J06.9 [facility] [address] [place], [place] [id number] 02/02/2025 Sofia Mejia Incomplete tear of right rotator cuff M75.111 ; Prostate cancer C61 ; Dyslipidemia E78.5 ; Hypertension, unspecified type I10 and BMI 24.0-24.9, adult Z68.24 [facility] [address] [place], [place] [id number] 02/14/2024 Keiry Dykes [facility] [address] [place] [id number] 03/16/2024 Keiry Dykes [facility] [address] [place] [id number] 06/11/2024 Sofia Mejia [facility] [address] [place] [id number] 06/29/2024 R Raul Mejia [facility] [address] [facility] [address] [place] [id number] 01/20/2025 Keiry Dykes Assessments Encounter Date Diagnosis (ICD Code) Assessment Notes Treatment Notes Treatment Clinical Notes Section Notes 06/09/2024 Seasonal allergies (ICD-10 - J30.2) 06/09/2024 Adult general medical examination (ICD-10 - Z00.00) Patient instructed to return to office Annually for Annual Wellness Visits to include annual screenings of Pain assessment, Functional Ability assessment, Cognitive Ability assessment, Fall Risk assessment, Depression screening and Bladder control screening. 07/17/2024 Acute URI (ICD-10 - J06.9) 02/02/2025 Prostate cancer (ICD-10 - C61) 02/02/2025 Incomplete tear of right rotator cuff (ICD-10 - M75.111) 02/02/2025 Dyslipidemia (ICD-10 - E78.5) 06/09/2024 Hypertension, unspecified type (ICD-10 - I10) 06/09/2024 Essential hypertension (ICD-10 - I10) 02/02/2025 Hypertension, unspecified type (ICD-10 - I10) 02/02/2025 BMI 24.0-24.9, adult (ICD-10 - Z68.24) 06/09/2024 Dyslipidemia (ICD-10 - E78.5) 06/09/2024 Screening for prostate cancer (ICD-10 - Z12.5) 06/09/2024 Personal history of tobacco use (ICD-10 - Z87.891) 06/09/2024 Male erectile disorder (ICD-10 - N52.9) 06/09/2024 Prostate cancer (ICD-10 - C61) 06/09/2024 BMI 23.0-23.9, adult (ICD-10 - Z68.23) Plan Of Treatment Pending Test Test Name Order Date LC-Lyme IgG/IgM Ab 07/07/2021 Insurance Providers Payer Name Payer Address Payer Phone Subscriber Number Group Number Insured Name Patient Relationship to Insured Coverage Start Date Coverage End Date MEDICARE PART B [address] [address] [place] [id number] [id number] SHILOHALEJANDRA GUTIERREZ Self - patient is the insured [facility] [address] [address] [place] [address] [phone] [id number] ALEJANDRA LOYD Self - patient is the [...] adenoma 06/06 020 Cyberknife/ Dr. Luna - [facility] 2021 Hospitalization History Reason Date(Month/Year) [place] [facility] - Ear Infection 10/2015
--- NOTE | 2025-02-10 11:49 | A.OFFVIS_ITS ---
[facility] Disclaimer: The information contained in this section may have been updated after the patient was seen, as this information can be updated by other users. Medical History Arthritis Hypertension Family History Other No significant family history Social History Smoking Status: Never smoker second hand exposure: No alcohol intake: never substance use type: denies use current occupational status: other Travel in the last 8 weeks?: None household members: spouse housing: house current occupational exposures/hazards: No caffeine: No PM Subjective & Objective Subjective Subjective:: Patient is a pleasant 74-year-old male who presents today for follow-up of his MRI of his right shoulder. Today he rates his pain a 6 out of 10. Patient d enies any new falls or injuries. He does state he is still having that same pain related to his shoulder. He is did have a intra-articular shoulder injection just recently however felt like it really did not provide much improvement. He states the pain is still interfering with his ability perform activities of daily living such as cooking and cleaning. Patient does have very limited movement. Patient states that he did get referred to [facility] with Dr. Lemus. He is scheduled to see him on the of this month. He denies any other changes. His Alvaro has been reviewed and is appropriate. Review of Systems: General: No recent weight changes, no fever, no sleep disturbances Respiratory: No cough, no shortness of air, no recurring pulmonary infections Cardiovascular/peripheral vascular: No chest pain, no palpitations, no edema, no shortness of breath Gastrointestinal: No new onset incontinence, normal bowel movements reported Genitourinary: No new onset incontinence Musculoskeletal: Right shoulder pain Psychiatric: [Normal mood/affect] Neurological: [Denies weakness in extremities], [denies balance issues] Pain at rest (0-10 scale): 6 Objective Objective:: Physical Exam: General: Alert and oriented x3, no acute distress, pleasant and cooperative Lungs: Respirations even and unlabored, symmetrical chest expansion Eyes: PERRL Musculoskeletal: Flexion and extension of right shoulder somewhat guarded secondary to pain Neurological: Speech clear, no gross sensory deficit Has patient had previous pain injection?: Yes Percent improvement in pain since last injection: Minimal Conservative treatment options previously tried: Home exercise plan Length of treatment: Longer than 12 weeks Meds Home Medications and Allergies Home Medications ?Medication ?Instructions ?Recorded ?Confirmed ?Type lisinopril 20 1 tab PO DAILY blood pressur e 06/08/21 01/19/25 History mg-hydrochlorothiazide 25 mg tablet diclofenac sodium 75 mg 75 mg PO BID . #60 tabs 01/0 11/2501/19/25 Rx tablet,delayed release gabapentin 100 mg capsule 100 mg PO HS Pain 09/10/22 0 01/19/25 History methocarbamol 500 mg tablet 500 mg PO TID PRN muscle p ain #42 11/11/24 01/19/25 Rx tabs New Prescriptions to Start Prescriptions: Allergies Allergy/AdvReac Type Severity Reaction Status Date / Time cefaclor (From [facility]) Allergy Verified 11/12/23 09:58 Assessment and Plan *Assessment and plan (1) Right shoulder pain: Status: Acute Category: Medical Code(s): M25.511 - Pain in right shoulder Plan I did go over with the patient regarding his MRI that did show probable tears of both the supraspinatus tendon as well as the anterior labrum. I did discuss that I do think it very beneficial he talk to orthopedics for evaluation of possible shoulder scope or other surgical intervention. I did also review with the patient that I do believe in future he would benefit from a suprascapular nerve block since he did not get significant relief with the intra-articular injection. Risk and benefits were discussed with patient and we did discuss that we will wait until he has heard from orthopedics before proceeding forward. I did also discuss with him however if the pain does get progressively worse and he decides that he would like to proceed forward with this option he can call our office and we will get him scheduled over the phone. Patient has tried and failed conservative therapy including oral medication, heat and ice, top icals, at home stretching exercise for longer than 12 weeks. Patient if he does proceed forward would be scheduled for a right suprascapular nerve block without fluoroscopic or ultrasound guidance. Patient was given a tentative 1 month follow-up. Patient has been instructed to contact the clinic with any concerns before the next appointment. Dr. Prieto has reviewed this note and agrees with this plan of care. This note was dictated using voice recognition software and make contain errors or omissions. All injections are used with Lidocaine, Bupivacaine and dexamethasone. Occasionally urine drug screen is needed to verify patient's compliance with our office pain contract. This is ordered based off specific treatments related to chronic pain with the potential to abuse certain medications.
[2025-02-10 12:37] VITALS: BP 135/69; PULSE 50; RESP 14; O2SAT 100; BMI 23.6
== END 2025-02-10 23:59 | disposition home or self-care (01) ==
LOC: SC.PAIN 10:41
PROVIDERS: PCP Family Medicine; Visit Provider Nurse Practitioner Family
DX: M25.511 Pain in right shoulder (principal)
CPT/HCPCS: 99212; G0463

== ENCOUNTER 2025-05-03 10:00 | Outpatient (RCR) | payer MEDICARE, SELFPAY | END 2025-05-03 23:59 | disposition home or self-care (01) | LOC: PT 10:00 | PROVIDERS: PCP Family Medicine; Visit Provider Orthopaedic Surgery | DX: G62.9 Polyneuropathy, unspecified (principal) | CPT/HCPCS: 97014; 97016; 97110; 97162; G0283 ==

== ENCOUNTER 2025-05-31 10:00 | Outpatient (RCR) | payer MEDICARE, SELFPAY | END 2025-05-31 23:59 | disposition home or self-care (01) | LOC: PT 10:00 | PROVIDERS: PCP Family Medicine; Visit Provider Orthopaedic Surgery | DX: G62.9 Polyneuropathy, unspecified (principal) | CPT/HCPCS: 97014; 97016; 97110; G0283 ==

== ENCOUNTER 2025-06-17 10:45 | Outpatient (RCR) | payer MEDICARE, SELFPAY | END 2025-06-17 23:59 | disposition home or self-care (01) | LOC: PT 10:45 | PROVIDERS: PCP Family Medicine; Visit Provider Orthopaedic Surgery | DX: G56.93 Unspecified mononeuropathy of bilateral upper limbs (principal) | CPT/HCPCS: 97110; 97530 ==

== ENCOUNTER 2025-06-30 14:36 | Outpatient (CLI) | payer MEDICARE, SELFPAY ==
--- OUTSIDE RECORDS SUMMARY | 2025-06-30 14:39 | XMS_ITS | Clinical Summary ---
Author Organization [facility] Address [address] [place] [address] Care Team Providers Care Shirt Operator Name Role Phone Masoud Mejia MD Primary Care Provider Allergies Active Allergy Reactions Criticality Noted Date Comments Cefaclor Rash Low 11/29/2021 Medications lisinopril-hydr ochlorothiazide (PRINZIDE,ZESTO RETIC) 20-25 MG per tablet 09/10/2021 Active Loratadine 10 MG capsule Take by mouth. Active naproxen (NAPROSYN) 500 MG tablet 12/05/2021 Active diclofenac (VOLTAREN) 75 MG EC tablet TAKE 1 TABLET BY MOUTH TWICE DAILY WITH MEALS. DO NOT TAKE ANY OTHER NSAIDS 08/08/2022 Active meclizine (ANTIVERT) 25 MG tablet 02/10/2022 Active Ventolin HFA 108 (90 Base) MCG/ACT inhaler INHALE 2 PUFFS BY MOUTH 4 TIMES DAILY NEEDED 05/29/2022 Active sildenafil (REVATIO) 20 MG tablet TAKE 1 TO 2 TABLETS BY MOUTH DIRECTED DAILY IF NEEDED 06/04/2023 Active Active Problems Problem Noted Date Diagnosed Date Weight loss, unintentional 09/05/2023 Prostate cancer Cancer Staging:Clinical stage from 10/02/2021:Stage IIB(cT1c, cN0, cM0, PSA: 11.8, Grade Group: 2) - Signed by Ameya Luna MD on 11/29/2021 Family History Medical History Relation Name Comments Prostate cancer Brother 1 Melanoma Brother 2 Dementia Father Diabetes Father Melanoma Father Ovarian cancer Mother Breast cancer Sister Relation Name Status Comments Brother 1 Alive Brother 2 Alive Father Mother Sister Alive Social History Tobacco Use Types Packs/Day Years Used Date Smoking Tobacco: Never Smokeless Tobacco: Current Snuff Comments:1can every 2 day Alcohol Use Standard Drinks/Week Comments Yes 0 (1 standard drink = 0.6 oz pur e alcohol) 2 drinks per week Abuse Screen Answer Date Recorded Unsafe at Home or Work/School Not on file Feels Threatened by Someone? Not on file Does Anyone Keep You from Co ntacting Others or Doint Things Outside the Home? Not on file 05/17/2023 Physical Sign of Abuse Present Not on file 1 Housing Stability Answer Date Recorded Current Living Arrangements Not on file 05/05 Potentially Unsafe Housing Conditions Not on patricia e 05/17/2023 Family and Community Support Answer Alberto e Recorded Help with Day-to-Day Activities Not on file 05/17/2023 Lonely or Isolated Not on file 05/17/2023 Employment Answer Date Recorded Do you want help finding or keeping work or a parish b? Not on file 05/17/2023 Disabilities Answer Date Recorded Concentrating, Remembering, or Making Decisions Difficulty Not on file 05/17/2023 Doing Errands Independently Difficulty Not on fi le 05/17/2023 Education Answer Date Recorded Help with school or training? Not on file Preferred Language Not on file 05/17/2023 PHQ-2 Answer Date Recorded Retired PHQ-9: Brief Depression Severity Measure Score 0 09/05/2023 Sex and Gender Information Value Date Recorded Sex Assigned at Not on file Legal Sex Male 9:44 AM EDT Gender Identity Not on file Sexual Orientation Not on file Last Filed Vital Signs Vital Sign Reading Time Taken Comments Blood Pressure 156/69 09/05/2023 10:55 AM EST Pulse 51 09/05/2023 10:55 AM EST Temperature 36.2 C (97.1 F) 09/05/2023 10:55 AM EST Respiratory Rate 20 09/05/2023 10:55 AM EST Oxygen Saturation 97% 09/05/2023 10:55 AM EST Inhaled Oxygen Concentration - - Weight 75.5 kg (166 lb 6.4 oz) 09/05/2023 10:55 AM EST Height 172.7 cm (5' 8 ) 09/05/2022 9:38 AM EST Body Mass Index 25.3 09/05/2022 9:38 AM EST Plan of Treatment Health Maintenance Due Date Last Done Comments COVID-19 Vaccine (#1) 1955 COLOGUARD 1997 COLON CANCER SCREENING 5 YEA R SIGMOIDOSCOPY 1997 COLONOSCOPY 1997 COL[address] CANCER SCREENING 1997 CT COLONOGRAPHY 1997 FECAL OCCULT BLOOD TEST 1997 FIT Testing (1 year) 1997 ZOSTER VACCINE (1 of 2) 2002 AAA SCREEN ONCE 2017 TDAP/TD VACCINES (1 - Tdap) 09/01/2018 08/31/2018 Pneumococcal Vaccine 50+ (2 of 2 - PCV) 05/17/2021 05/17/2020 ANNUAL WELLNESS VISIT 11/27/2021 HEPATITIS C SCREENING 11/27/2021 INFLUENZA VACCINE 03/05/2025 05/29/2022, , 05/17/2020 Insurance MEDICARE A & B [facility] Imaging [facility] Care Teams Shirt Operator Relationship Specialty Start Date End Date Masoud Mejia MD [address] [facility] [address] [facility] [address] [place] [address] PCP - General Family Medicine 11/29/21
--- OUTSIDE RECORDS SUMMARY | 2025-06-30 14:39 | XMS_ITS ---
Author Organization [facility] Address [address] [place] [address] Care Team Providers Care It Desktop Support Technician Name Role Phone Masoud Mejia MD Primary Care Provider Active Problems Problem Noted Date Diagnosed Date Weight loss, unintentional 09/05/2023 Prostate cancer Cancer Staging:Clinical stage from 10/02/2021:Stage IIB(cT1c, cN0, cM0, PSA: 11.8, Grade Group: 2) - Signed by Ameya Luna MD on 11/29/2021 Current Treatment and Therapy Plans No current plan information found. Past Treatment and Therapy Plans No past plan information found. Treatment Summaries Prostate cancer* Images from the original note were not included. Prostate Cancer Survivorship Plan General Information Patient name Daryl Loyd Date of 1950 Phone Email [email or web address] Treatment Team Patient Care Team: Ameya Luna MD as Consulting Physician (Radiation Oncology) Lavon Candelaria MD as Referring Physician (Urology) Provider Phone numbers Care Team Provider: Ameya Luna MD, ([phone]) Care Team Provider: Lavon Candelaria MD, ([phone]) Post Treatment Care Team Primary Care Physician Maosud Mejia MD [phone] [address] [facility] [address] [facility] [id number] Background Information Medical history Past Medical History: Arthritis Hypertension Prostate cancer (HCC) Skin cancer melanoma removed from surgery Surgical history Past Surgical History: COLONOSCOPY PROSTATE BIOPSY PROSTATE FIDUCIAL MARKER PLACEMENT Tobacco use Social History Tobacco Use Smoking Status Never Smoker Smokeless Tobacco Current User Types: Snuff Tobacco Comment 1can every 2 day Family oncology history Cancer-related family history includes Breast cancer in his sister; Melanoma in his brother and father; Ovarian cancer in his mother; Prostate cancer in his brother. Oncology Information Oncology/Hematology History Prostate cancer (HCC) 10/02/2021 Cancer Staged Staging form: Prostate, AJCC 8th Edition - Clinical stage from 10/02/2021: Stage IIB (cT1c, cN0, cM0, PSA: 11.8, Grade Group: 2) - Signed by Ameya Luna MD on 11/29/2021 11/29/2021 Initial Diagnosis Prostate cancer (HCC) 01/15/2022 - 01/19/2022 Radiation Radiation OncologyTreatment Course: Daryl Loyd received 3500 cGy in 5 fractions to prostate and seminal vesicles via Stereotactic Radiation Therapy - SRT. Complications during Therapy: No concerns stated Modification to Treatment Plan: No Modifications Lifetime Dose Tracking No doses have been documented on this patient for the following tracked chemicals: Doxorubicin, Epirubicin, Idarubicin, Daunorubicin, Mitoxantrone, Bleomycin, Mitomycin, Doxorubicin Liposomal [Could not find a treatment plan. This SmartLink may be configured incorrectly. Contact a systems program manager for help.] Persistent Treatment-Associated Adverse Effects at Completion of Therapy It is important to recognize that not every person experiences the following adverse events after treatment. You may not have any of these issues, a few or many adverse effects. Experiences are highly variable. Please discuss any adverse effects of cancer treatment with your cancer care team. After Surgical Therapy No Surgery Performed After Chemotherapy N/A After Radiation Therapy After External Beam Radiation Therapy or Cyberknife Radiation therapy can cause early and late side effects. Early side effects are those that happen during or shortly after treatment and are usually gone within a few weeks after treatment ends. Late side effects may take months or years to develop. The most common early side effects are fatigue (feeling tired) and skin changes. Other early side effects are usually related to the area being treated. If you continue to have some skin problems after treatment ends, be gentle with the skin in the treatment area until all signs of irritation are gone and continue to care for your skin as your doctors and nurses have advised. If you continue to have fatigue, you may need to plan your activities to maximize energy, get extra rest while your bodyis still recovering and follow other instructions from your doctors and nurses such as exercise andactivity. supervisor intermediates effects of radiation therapy vary greatly depending on the areas included in the field ofradiation and the radiation techniques that were used. Normal tissue in the body that is close to the prostate such as the bowel, rectum and bladder may be exposed to some radiation during treatment. Exposure of the bowel to radiation may result in bowel changes such as diarrhea or frequent loose stools. Ulceration and bleeding may also occur. Any bright red blood or black, tarry stools or abnormal passage of stool should be reported to your doctor. Stay hydrated by drinking water and fluids with electrolytes. Chronic diarrhea may put you at risk for weight loss and malnutrition. Talk to yourdoctor or nurse - there may medications and special instructions that can help. There are also other specialists like gastroenterologists and dietitians who can help. If the lymph nodes were in the radiation field, there may be an increased risk of developing lymphedema. Lymphedema is a condition in which fluid collects and may cause swelling. Exposure of the bladder to radiation may result in bladder scarring and may increase the risk of urinary tract infections. Blood in the urine or signs of urinary tract infections such as pain in the bladder, groin, lower abdomen or lower back, frequent urination, bladder spasm, cloudy, dark and/or foul-smelling urine, frequent urge to urinate and fever should be reported to your doctor. Radiation to the pelvis may cause erectile dysfunction (inability to get and keep an erection firm enough for sexual penetration). If there was erectile dysfunction before treatment and if there are other risk factors for erectile dysfunction (such as advanced age), the risk may be higher. Each man???s situation is different. Medications to treat erectile dysfunction may be given. There are also other treatments and devices that can help. Having trouble with erections is a very personal concern. It???s important to communicate with your partner and to talk with your doctor or nurse about it. Treatments and referrals to other specialists may help. In rare cases, radiation therapy can increase the risk of a second cancer. Other N/A Care of your Venous Access Device No Venous Access Device currently in place General After Cancer Treatment It is not uncommon for cancer to impact other areas of your life such as relationships, work and mental health. If you develop financial concerns, resources are sometimes available to assist in theseareas. Depression and anxiety can present either during or after cancer diagnosis and treatment. Itis important to discuss with your physician any of these concerns so these resources can be made available to you. General Cancer Support & Resources [facility] [address], [address] [place] [address] Med Onc: Imaging Scheduler Onc: Instructional Designer: Donna George - Psychiatric Nurse Practitioner: Scarlet Thomas APRN - Kick It! (A free smoking cessation program) Financial Counselor and Contact Information: [facility] Financial Counseling [phone] Operations Director Contact Information: Nadya Chu - Local Cancer Support Group and Contact Information: Fahad Barlow: This support group is open to anyone that has been diagnosed with cancer of any type. Meets at 6:30pm on the last Saturday of each month. Location: [facility]; [address] [place] [address]. For more information call Irina Velasco @ . Prostate Cancer Support & Resources Local Resources [facility] Prostate Support Group: The mission of [facility] is to provide hope and improve the lives of of those affected by prostate cancer through support, education, and advocacy/ awareness. The group meets the of each month at 6:30 p.m. [address] [facility], [address] [place], [place] [id number] Surveillance How Frequent? Medical Oncology visits 1 month, 6 months later, 1 year later (Dr. Luna) Lab tests PSA 3 months after CyberKnife completion, then every 6 months until PSA alex (PSA <0.5), then every 6-12 months (Dr. Candelaria) Imaging exams As clinically indicated Immunizations Influenza Herpes Zoster Pneumococcal Yearly Once As appropriate Tobacco Cessation Ready to quit: Not Answered Counseling given: Not Answered Comment: 1can every 2 day Monitor for ongoing toxicities: None Specified Call your doctor if you have any of these signs or symptoms New or worsening symptoms. Pain that is new, unrelieved or bothersome. Difficulty with your emotions, anxiety, and/or depression. Physical problems that affect your abilities in your daily life or those that are bothersome (for example, continued fatigue, trouble sleeping, sexual problems, or edema). Referrals provided There are no referral needs at this time. Self Care Plan Self Care Plan: What You Can Do to Stay Healthy after Treatment for Cancer Cancer treatments may increase your chance of developing other health problems years after you havecompleted treatment. The purpose of this self care plan is to inform you about what steps you can take to maintain good health after cancer treatment. Keep in mind that every person treated for cancer is different and that these recommendations are not intended to be a substitute for the advice of a doctor or other health animal care attendant. Please use these recommendations to talk with your health care provider about an appropriate follow up care plan for you. Surveillance for Your Cancer Recommendation Frequency Comments Cancer surveillance visit with medical provider that is focused on detecting signs of recurrence ofyour cancer. For additional information, visit www.livestrong.org or www.cancer.net/patient/Survivorship Frequency depends on type and stage of cancer you had. (If you had a higher risk cancer, you may be seen more often). Your doctor has provided you with a personalized cancer treatment summary and survivorship care plan. If you need another copy, ask your doctor. General Cancer Screening for Men Cancer screening tests are designed to find cancer or pre-cancerous areas before there are any symptoms and, generally, when treatments are most successful. Various organizations have developed guidelines for cancer screening for men. While these guidelines vary slightly between different organizations, they cover the same basic screening tests for prostate and colorectal cancers. In addition, during routine health examinations (at any age) your health care provider may also evaluate for cancers of the skin, mouth and thyroid. Not all screening tests are right for everyone. Your personal and family cancer history, and/or the presence of a known genetic predisposition, can affect which tests are right for you, and at what age you begin them. Therefore, you should discuss these with your health care provider. Your care plan will also include a section on follow up care foryour type of cancer, and these recommendations override the general screening recommendations for that particular type of cancer in the general population. The [place] [employer] (ACS) recommends these screening guidelines for men: Recommendation Frequency Comments Colon and Rectal Cancer Screening For more information see the ACS document Colorectal Cancer: Early Detection. www.cancer.org/ssLINK/hsmxztqzuq-keeyny-gwgxe-detection-fidelia Options for colon cancer screening can be divided into those that screen for both cancer and polyps, and those that just screen for cancer.Screening should begin at age 45 (unless you are considered high risk (see comments), using one of the following testing schedules: Tests that find polyps and cancer (Preferred over those that find cancer alone. If any of these tests are positive, a colonoscopy should be done.) Flexible sigmoidoscopy every five years, or Colonoscopy every 10 years, or Double-contrast barium enema every five years, or CT colonography (virtual colonoscopy) every five years Tests that primarily test for cancer Yearly fecal occult blood test (FOBT)*, or Yearly fecal immunochemical test (FIT) *, or Stool DNA test (sDNA), interval uncertain* * The multiple stool take-home test should be used. One test done by the doctor in the office is not adequate. A colonoscopy should be done if the test is positive. Talk with your doctor about your medical history, and what colorectal cancer screening test and schedule is best for you. Individuals at higher risk of colon cancer should have screening earlier and potentially more frequently. Those at higher risk of colon and rectal cancer: Individuals with a family history of colon or rectal cancer in a relative who was diagnosed before the age of 60 Individuals with a history of polyps Individuals with inflammatory bowel disease (Crohn's disease or ulcerative colitis) Individuals with a genetic predisposition to colon or rectal cancer, such as hereditary non-polyposis colon cancer (HNPCC) syndrome or familial adenomatous polyposis (FAP) syndrome Prostate Cancer Screening For more information, see the ACS Document Prostate Cancer Prevention and Early Detection: http://www.cancer.org/cancer/prostatecancer/moreinformation/prostatecancerearlyd etection/index Starting at age 50 (unless you are considered high risk ), men should talk to their doctor about the pros and cons of prostate cancer testing, and then decide if they want to be tested. Tests that can be used to detect for prostate cancer include Prostate-specific antigen (PSA) or digital rectal exam (LUIS). ndividuals are considered higher risk if they are and/or have a family history of prostate cancer. Those who are considered high risk should have this talk at age 40 or 45. Testicular Screening For more information, see the ACS Document Testicular Cancer Detection: http://www.cancer.org/cancer/testicularcancer/detailedguide/plrrhxsmgk-tdjykg-ge tection Men of any age can develop testicular cancer; however, about half of all cases occur in men between the ages of20 and 34. A testicular self- exam is recommended monthly after a man has gone through puberty. In doing so, nimo should look and feel for any hard lumps, rounded bumps, or any change in the size, shape, or consistency of his testicles. If something appears abnormal, see a health care provider for further evaluation. Sun Exposure and Skin Cancer Risk Skin cancer is the most commonly diagnosed type of cancer, and rates are on the rise. However, thisis one cancer that in most cases can be prevented or detected early. While you may hear that you need the sun to make vitamin D, in reality you only need a few minutes a day to do this. Exposure to ultraviolet (UV) rays, either by natural sunlight or tanning beds, can lead to skin cancer. In additio n, UV rays lead to other forms of skin damage, including wrinkles, loss of skin elasticity, dark patches (sometimes called age spots or liver spots), and pre- cancerous skin changes (such as dry, scaly, rough patches). Although dark- skinned people are less likely to develop skin cancer, they can anddo develop skin cancers, most often in areas that are not exposed to sun (on the soles of the feet,under nails, and genitals). You can do a lot to protect yourself from damaging UV rays and to detect skin cancer early. Start by practicing sun safety, including using a broad spectrum sunscreen (which protects against UVA and UVB rays) with an SPF of at least 30 every day, avoiding peak sun times (10 a.m. to 4 p.m., when therays are strongest) and wearing protective clothing such as hats, sunglasses and long- sleeved shirts. Examine your skin regularly so you become familiar with any moles or birthmarks. If a mole has changed in any way, you should have a health care provider examine the area. This includes a change in size, shape or color; the development of scaliness, bleeding, oozing, itchiness or pain; or the development of a sore that will not heal. If you have a lot of moles, it may be helpful to make note of moles using photographs or a mole map . For a guide to performing a skin exam, visit www.skincarephysicians.com/skincancernet/skin_examinations.html. Healthy Lifestyle For some cancer survivors, the experience is the motivation to making healthy lifestyle changes. Itmay seem insignificant, but these changes have been shown to reduce the risk of the cancer coming back or a new cancer developing. Below are some tips on adopting a healthier lifestyle. Maintaining ahealthy weight is important in cancer prevention, as is physical activity and eating a healthy diet. Strive to incorporate all three pieces of the puzzle: healthy weight, balanced diet and regular exercise. Recommendation Goal Comments Maintain a healthy weight. For more information, visit http://www.nhlbi.nih.gov/health/public/heart/obesity/lose_wt/index.htm www.win.niddk.nih.gov Call the [place] [employer] Talk to your health care team about what a healthy weight is for you, and take stepsto reach and maintain that weight. For many people reaching their ideal weight can be a challenge; however, losing even 5 to 10 poundscan lower blood pressure, blood sugar and cholesterol levels. Weigh yourself weekly to monitor for weight gain/loss Being overweight can increase your chance of your cancer coming back. Maintaining a healthy weight, physical activity and eating a healthy diet are all important in cancer prevention. Being overweight can increase your chance of having high blood pressure, high blood sugar and/or high cholesterol, which can lead to heart disease, diabetes and stroke. If you would like more information about your blood sugar, cholesterol or blood pressure, talk with your primary care provider. Eat a healthy diet, mostly from plant sources. For more information, visit http://www.choosemyplate.gov/food-groups/ Eat healthy, including plenty of fruits and vegetables daily. Drink more water, less soda and juice. Limit how much alcohol you drink (if you drink at all). Strive to have two- thirds of your plate be vegetables, fruits, whole grains and beans, while one- third or less should be an animal product. Choose fish and chicken and limit red meat and processed meats. Limit intake of alcohol to two drinks per day. Exercise. To learn more about recommendations for diet, activity and weight, visit AICR???s Guidelines for Survivors http://preventcancer.aicr.org/site/PageServer?pagename=patients_survivors_guidel antione ACS Eat Healthy and Get Active www.cancer.org/Healthy/EatHealthyGetActive/index Experts recommend at least 30 minutes of yivuighs-zi-cbnyizon activity per day, five days a week. Research shows that exercise can help you control your weight, improve your energy level, and help you sleep at night. The cheema is to find a physical activity you enjoy such as walking, dancing or gardening and do it regularly. If you have been inactivefor a while, start out slowly. You can start out by exercising 10 minutes a day several days a week. If you feel dizzy, short of breath, or have chest pain during exercise, stop exercising and talk with your primary care doctor. Do not use tobacco in any form. For more information, visit http://www.cdc.gov/tobacco/campaign/tips/ If you use tobacco, quit as soon as possible. Smoking is the most preventable cause of in the [place] If you would like more information, ask your doctor or you can call a national hotline at 6(018)-QUIT-NOW. Have regular check-ups by a healthcare professional. For more information about healthy screening tests for men visit the U.S. Department of Health and Human Services. http://www.womenshealth.gov/gefwfferv-fgwjb-qlq-vaccines/itzuwxkie-jooju-nnd-men / For more information about adult vaccinations visit the CDC: http://www.cdc.gov/vaccines/recs/schedules/adult-schedule.htm Keep up-to-date on general health screening tests, including cholesterol, blood pressure and glucose (blood sugar) levels. Get an annual influenza vaccine (flu shot). Get vaccinated with the pneumococcal vaccine, which prevents a type of pneumonia, and re-vaccinatedas determined by your health care team. Don???t forget dental and eye health! The [place] [employer] recommends adults have their eyes examined every two years until age 60, then annually. People who wear glasses or correctivelenses or are at high risk for eye problems (i.e., diabetics, family history of eye disease) shouldbe seen more frequently. The [employer] [employer] recommends adults see their dentist at least once a year. No information on file. No information on file.
--- NOTE | 2025-06-30 14:41 | CT_ITS ---
FINAL REPORT TECHNIQUE: Thin section axial images were obtained through the lungs using a low-dose technique per lung cancer screening protocol. Reconstruction images were obtained using the axial data. This study was performed with techniques to keep radiation doses as low as reasonably achievable, (ALARA). Individualized dose reduction techniques using automated exposure control or adjustment of mA and/or kV according to the patient's size were employed. CLINICAL HISTORY: screening former smoker, quit 30 yrs go, 1 pp for 20 yrs 5'9 165 lb COMPARISON: 06/22/2024 FINDINGS: CTDLvol: 2.90 DLP: 122.20 Former smoker, quit 30 years ago 20 pack year history Lungs: There is a subpleural right upper lobe nodule on series 4 image 32, which is unchanged. There is evidence of prior granulomatous disease. There are no new nodules or masses. There is no consolidation. Lymph nodes: No thoracic lymphadenopathy. Mediastinum: Heart size is normal. Pleura/pericardium: No pleural or pericardial effusion. Other: In the upper abdomen, there is a nonobstructing left renal stone. A hypodense lesion in the left lobe of the liver is unchanged. IMPRESSION: Stable 3 mm right upper lobe pulmonary nodule. Lung RADS: 2 Recommendation: 12-month follow-up low-dose chest CT. Reviewed, Interpreted and Dictated by Kate Leblanc MD Transcribed by Luci Jacobo Authenticated and [facility]
== END 2025-06-30 23:59 | disposition home or self-care (01) ==
LOC: RAD 14:37
PROVIDERS: PCP Family Medicine; Visit Provider Family Medicine
DX: Z12.2 Encounter for screening for malignant neoplasm of respiratory organs (principal); Z87.891 Personal history of nicotine dependence; R91.1 Solitary pulmonary nodule; N20.0 Calculus of kidney; K76.9 Liver disease, unspecified
CPT/HCPCS: 71271